=== PATIENT | female | born 1940 | race Caucasian/White ===

== ENCOUNTER → 2016-10-25 | Outpatient (CLI) | payer BC, OTHER ==
[~2016-10-25] MED LIST: AMLO2.5T PO; BIOTCAP2 PO; CHOL2000 PO; CLIN300C2 PO; COEN150C PO; GLUC250C PO; OXYC-57 PO; OXYC1TAB3 PO; PANT1TAB48 PO; PYRI100T4 PO; VALS320T2 PO
== END | disposition home or self-care (01) ==
LOC: C.RDSM 12:07
PROVIDERS: ATTEND Physical Medicine & Rehabilitation Sports Medicine
DX: M19.019 Primary osteoarthritis, unspecified shoulder (principal); Z96.612 Presence of left artificial shoulder joint

== ENCOUNTER → 2016-12-06 | Outpatient (CLI) | payer BC ==
[~2016-12-06] VITALS: Ht 162.6 cm; Wt 86.0 kg
[2016-12-06 15:47] VITALS: BP 149/80; PULSE 73; Ht 162.6 cm; Wt 86.0 kg
== END | disposition home or self-care (01) ==
LOC: C.NEUR 13:13
PROVIDERS: ATTEND Internal Medicine Pulmonary Disease
DX: G47.30 Sleep apnea, unspecified (principal); M35.3 Polymyalgia rheumatica

== ENCOUNTER → 2017-01-17 | Outpatient (CLI) | payer BC | END | disposition home or self-care (01) | LOC: C.RDSM 09:45 | PROVIDERS: ATTEND Physical Medicine & Rehabilitation Sports Medicine | DX: M17.12 Unilateral primary osteoarthritis, left knee (principal); M25.511 Pain in right shoulder; Z96.612 Presence of left artificial shoulder joint ==

== ENCOUNTER → 2017-06-24 | Outpatient (CLI) | payer BC ==
[~2017-06-24] MED LIST changes: -OXYC-57 PO
--- NOTE | 2017-06-24 14:23 | DIAGNOSTIC IMAGING REPORT ---
CHEST 2 VIEWS ROUTINE CLINICAL HISTORY: 76 years-old Female presenting with preoperative assessment. TECHNIQUE: PA and lateral views of the chest were obtained. COMPARISON: 08/19/2016. FINDINGS: Cardiomediastinal silhouette normal. Mild tortuosity of the descending thoracic aorta. Eventration of the right hemidiaphragm. Lungs and pleural spaces clear. Left shoulder arthroplasty. Degenerative changes of the right glenohumeral joint. Degenerative changes of the spine. Mild wedging deformity suggested in the lower thoracic region. Upper abdomen normal. IMPRESSION: 1. No acute cardiopulmonary disease. 2. Mild wedging deformity of a lower thoracic vertebral body. Correlate for point tenderness. This was not clearly present on prior radiograph from July 2016. Electronically signed by: Romaine Armijo M.D. 06/24/2017 2:22 PM Dictated Date/Time: 06/24/2017 2:21 PM
[2017-06-24 14:40] LABS: BASO % 0.6 %; BASO ABS # 0.04 K/uL (0-0.2); COMPLETE YES; EOS % 3.1 %; HEMATOCRIT 39.2 % (37-47); IG% 0.3 %; LYMPH % 25.3 %; LYMPH ABS # 1.74 K/uL (1.2-3.4); MEAN CELL VOLUME 86.2 fL (80-100); MEAN CORPUSCULAR HEMOGLOBIN 26.6 pg (25-34); MEAN CORPUSCULAR HGB CONC 30.9 g/dl (32-36); MEAN PLATELET VOLUME 9.6 fL (7.4-10.4); MONO % 11.2 %; NEUT % 59.5 %; PLATELET COUNT 280 K/uL (130-400); RED BLOOD COUNT 4.55 M/uL (4.2-5.4); WHITE BLOOD COUNT 6.87 K/uL (4.8-10.8)
[2017-06-24 14:48] LABS: PROTHROMBIN TIME (PATIENT) 10.7 SECONDS (9.0-12.0)
[2017-06-24 14:59] LABS: URINE APPEARANCE CLEAR (CLEAR); URINE BILIRUBIN NEG (NEG); URINE COLOR YELLOW; URINE EPITHELIAL CELL AUTO >30 /lpf (0-5); URINE NITRITE NEG (NEG); URINE SPECIFIC GRAVITY 1.015 (1.000-1.030); UROBILINOGEN NEG (NEG)
[2017-06-24 15:00] LABS: MANUAL MICROSCOPIC REQUIRED? NO; REVIEW REQ? NO
[2017-06-24 15:16] LABS: BLOOD UREA NITROGEN 17 mg/dl (7-18); BUN/CREATININE RATIO 20.2 (10-20); CALCIUM 9.6 mg/dl (8.5-10.1); CARBON DIOXIDE 29 mmol/L (21-32); CHLORIDE 106 mmol/L (98-107); CREATININE 0.82 mg/dl (0.60-1.20); GLUCOSE 89 mg/dl (70-99); SODIUM 141 mmol/L (136-145)
== END | disposition home or self-care (01) ==
LOC: C.LAB 13:10
PROVIDERS: ATTEND Physical Medicine & Rehabilitation Sports Medicine
DX: Z01.810 Encounter for preprocedural cardiovascular examination (principal); Z01.811 Encounter for preprocedural respiratory examination; Z01.812 Encounter for preprocedural laboratory examination; I45.10 Unspecified right bundle-branch block

== ENCOUNTER → 2017-07-07 | Outpatient (CLI) | payer BC ==
[~2017-07-07] VITALS: Ht 162.6 cm; Wt 91.4 kg
[2017-07-07 09:49] VITALS: BP 172/75; PULSE 93; Ht 162.6 cm; Wt 91.4 kg
== END | disposition home or self-care (01) ==
LOC: C.NEUR 08:55
PROVIDERS: ATTEND Internal Medicine Pulmonary Disease
DX: G47.33 Obstructive sleep apnea (adult) (pediatric) (principal); R93.8 Abnormal findings on diagnostic imaging of other specified body structures; D64.9 Anemia, unspecified; M19.90 Unspecified osteoarthritis, unspecified site; E78.5 Hyperlipidemia, unspecified; I10 Essential (primary) hypertension; M35.3 Polymyalgia rheumatica

== ENCOUNTER 2017-07-20 08:10 | Inpatient (IN) | payer BC, OTHER ==
[2017-05-30 10:47] VITALS: BMI 32.0
--- NOTE | 2017-06-30 11:48 | HISTORY & PHYSICAL EXAMINATION ---
DATE OF ADMISSION: 07/20/2017 CHIEF COMPLAINT: Right shoulder pain. HISTORY OF PRESENT ILLNESS: This 76-year-old white female presents to the office with complaints of right shoulder pain that had been ongoing for over a year. Pain has become worse since December. Right hand dominant. She has a history of left total shoulder arthroplasty and did very well with that. She elects to proceed with the same on the right. No numbness or tingling. She has lost motion. She has pain with motion and it is affecting her ADLs. She has tried activity modification as well as anti-inflammatories without success. PAST MEDICAL HISTORY: Significant for aortic stenosis, cystocele, elevated lipids, hypertension, left ventricular hypertrophy, mitral regurgitation, obstructive sleep apnea, rectocele, scoliosis, vaginal prolapse, obesity, history of polymyalgia rheumatica, and claustrophobia. PREVIOUS SURGERIES: Left total shoulder replacement in August 2016, herniorrhaphy in April 2016, cataract surgery in January 2016, anterior colporrhaphy in October 2015, cystoureteroscopy in 2015, umbilical hernia repair in October 2014, right knee TKA in November 2012, colonoscopy, nasal septoplasty, sinus surgery, hysterectomy, wisdom tooth extraction, tonsillectomy with adenoidectomy, bilateral carpal tunnel releases, left foot hammertoe operation, right foot bunionectomy x2, right foot hammertoe correction, bladder prolapse tacking, and dental surgery. FAMILY HISTORY: Significant for Alzheimer's disease, hypertension, lung cancer, stroke, heart attack, and COPD. ALLERGIES: KNOWN ALLERGY TO AMOXICILLIN, WHICH CAUSES A RASH; FLUZONE; TOPICAL IODINE; LISINOPRIL; MECLOMEN; NAPROSYN, WHICH CAUSES GI UPSET; PENICILLIN, WHICH CAUSES SWELLING OF HER FACE; AND VALIUM. SOCIAL HISTORY: The patient is retired. No tobacco use and no ETOH use. . CURRENT MEDICATIONS: Biotin daily, Coenzyme Q b.i.d., glucosamine t.i.d., HCTZ/losartan 25 mg/320 mg p.o. daily, Protonix 40 mg p.o. daily, and vitamin D3 daily. REVIEW OF SYSTEMS: Significant for above stated conditions, otherwise unremarkable. PHYSICAL EXAMINATION: GENERAL: Well-developed and well-nourished elderly white female in no acute distress. Sitting on a chair. Alert and oriented. SKIN: Warm and dry with good turgor. No rashes or lesions. No ecchymosis or erythema. HEENT: Normocephalic and atraumatic. Eyes, PERRLA, EOMI. Nares patent bilaterally without turbinate enlargement. Oropharynx is without erythema or exudate. No lesions noted. Uvula midline. Oral mucosa moist. HEART: RRR. 3/6 systolic ejection murmur noted over the left upper chest. No gallops or rubs. LUNGS: Clear to auscultation bilaterally. No crackles, rhonchi or wheezing. Good air movement. ABDOMEN: Obese. Bowel sounds present x4, soft and nontender. No organomegaly. MUSCULOSKELETAL: Right shoulder has no obvious asymmetry or deformity. She has limited range of motion. Abduction to around 80 degrees, forward flexion also to around 80 degrees, and she has crepitation with range of motion. External rotation is significantly limited at about 15 degrees off neutral. Behind the back reach is only to her belt line. Full elbow motion. Full range of motion of the wrist. She has discomfort with palpation over the anterior and posterior glenohumeral joint. NEUROLOGIC: Gross sensation is intact across the arm by soft touch. Peripheral pulses are 2+. Cranial nerves II-XII are intact. DATA: Radiographic imaging previously obtained of the right shoulder shows DJD with periarticular osteophytes and loss of joint space. IMPRESSION: Right shoulder end-stage degenerative joint disease. PLAN: Informed written consent will be obtained on the day of surgery to proceed with right total shoulder arthroplasty. Postoperative prescription for Percocet will be provided at discharge from the hospital. She will participate in physical therapy the next day. Preoperative lab work, EKG, and chest x-ray have been ordered. Medical clearance has been requested from her PCP. [place]
[~2017-07-20] VITALS: Ht 162.6 cm; Wt 88.0 kg
[2017-07-20] VITALS (7 sets, daily range): BP systolic 92–159; BP diastolic 54–81; PULSE 44–77; TEMP 36.4–36.8; O2SAT 92–98; Ht 162.6 cm; Wt 88.0 kg
[~2017-07-20 08:10] MED LIST changes: +LACTATED RINGER'S 1000ML 1,000 ML IV SCH; +LACTATED RINGER'S 1000ML IV SCH; +ROPIVACAINE 0.5% 5 MG/ML 30 ML VIAL ONE; +ROPIVACAINE 5MG/ML 30 ML 150 MG, BUPIVACAINE/EPINEPHR 0.5% MPF 30 ML, KETOROLAC TROMETH... INFIL SCH; +TRANEXAMIC ACID INJ 1,000 MG in SODIUM CHLORIDE 0.9% 100ML 100 ML IV SCH; +VANCOMYCIN INJ 1,250 MG in SODIUM CHLORIDE 0.9% 250ML 250 ML IV SCH
--- NOTE | 2017-07-20 08:27 | History & Physical Bridge Note ---
H&P Re-Evaluation Bridge Note: I have examined the patient, reviewed the History & Physical and in the interval since the performance of the History & Physical I have noted the following changes of clinical significance: consent obtained.No changes noted
[2017-07-20] MEDS ORDERED: MIDAZOLAM HCL 1 MG/ML 2ML VIAL ONE (09:21)
[2017-07-20] MEDS ORDERED: FENTANYL CITRATE INJ 50 MCG/1 ML 2 ML VIAL ONE (09:24)
[2017-07-20] MEDS ORDERED: THROMBIN FOR SOLN 20000 UNIT KIT ONE (10:44)
[2017-07-20] MEDS ORDERED: BACITRACIN 50000 UNIT VIAL ONE (10:44)
[2017-07-20] MEDS ORDERED: EpHEDrine SULFATE INJ 50 MG/ML AMP IV PRN (11:15)
[2017-07-20] MEDS ORDERED: PHENYLEPHRINE 100MCG/ML 5ML SYR IV PRN (11:15)
[2017-07-20] MEDS ORDERED: ONDANSETRON INJ 2 MG/ML 2 ML VIAL IV PRN ×2 (11:15→13:45)
[2017-07-20] MEDS ORDERED: ATROPINE SULFATE 0.1 MG/ML 5ML SYR IV PRN (11:15)
[2017-07-20] MEDS ORDERED: LIDOCAINE HCL 2% 2 ML VIAL (20MG/ML) ONE (11:38)
[2017-07-20] MEDS ORDERED: DEXAMETHASONE SOD INJ 4 MG/ML VIAL ONE (11:38)
[2017-07-20] MEDS ORDERED: ROCURONIUM BROMIDE 10 MG/ML 5 ML VIAL IV ONE ×2 (11:38→12:10)
[2017-07-20] MEDS ORDERED: ONDANSETRON INJ 2 MG/ML 2 ML VIAL ONE (11:38)
[2017-07-20] MEDS ORDERED: GLYCOPYRROLATE INJ 0.2 MG/ML VIAL ONE (11:38)
[2017-07-20] MEDS ORDERED: PROPOFOL IV EMULSION 10 MG/ML 20 ML VIAL IV ONE (11:38)
[2017-07-20] MEDS ORDERED: NEOSTIGMINE METHYLSULFATE 5 MG/5 ML SYR ONE (11:38)
[2017-07-20] MEDS ORDERED: PHENYLEPHRINE 100MCG/ML 5ML SYR ONE (11:52)
[2017-07-20] MEDS ORDERED: ORTHO JOINT ANESTHETIC ONE (12:00)
[2017-07-20] MEDS ORDERED: PHENYLEPHRINE HCL INJ 10 MG/ML VIAL ONE (12:11)
--- NOTE | 2017-07-20 13:26 | [facility] Post Operative Brief Note ---
Immediate Operative Summary Operative Date Jul 20, 2017. Pre-Operative Diagnosis Right shoulder end-stage degenerative joint disease Post-Operative Diagnosis Same as preoperative diagnosis Procedure(s) Performed Right Total Shoulder Arthroplasty--Cemented Surgeon Dr. Avalos Lab Asst Surgeon(s) Lisseth Pena PA-C Estimated Blood Loss 125cc Findings severe djd/cuuff intact but thin/severe bursitis Fluids (cc crystalloids) 1200cc Specimens A. Portion of Right Humeral Head Drains none Anesthesia GET/block Complication(s) None Disposition Recovery Room / PACU
[2017-07-20] MEDS ORDERED: MAGNESIUM HYDROXIDE SUSP 30 ML UDC PO PRN (13:45)
[2017-07-20] MEDS ORDERED: METOCLOPRAMIDE HCL INJ 5 MG/ML 2 ML VIAL IV PRN (13:45)
[2017-07-20] MEDS ORDERED: ALUMINUM/MAGNESIUM SUSP 30 ML UDC PO PRN (13:45)
[2017-07-20] MEDS ORDERED: MoRPHine SULFATE 2 MG/ML CARP IV PRN (13:45)
--- NOTE | 2017-07-20 13:45 | Anesthesiology Progress Note ---
Anesthesia Post Op Note Date & Time Jul 20, 2017 at 13:45 Vital Signs Pain Intensity: 8 Vital Signs Past 12 Hours Date Time Temp Pulse Resp B/P (MAP) Pulse Ox O2 Delivery O2 Flow Rate FiO2 07/20/17 10:59 59 20 129/68 (88) 97 Oxymask 5 98 07/20/17 10:48 64 20 130/71 (90) 97 Oxymask 5 07/20/17 08:58 36.7 77 18 159/74 Room Air Notes Mental Status: alert / awake / arousable, participated in evaluation Pt Amnestic to Procedure: Yes Nausea / Vomiting: adequately controlled Pain: adequately controlled Airway Patency, RR, SpO2: stable & adequate BP & HR: stable & adequate Hydration State: stable & adequate Anesthetic Complications: no major complications apparent
[2017-07-20] MEDS: HYDROmorphone INJ 2 MG/ML SYR/VIAL IV PRN ×4 (14:09→14:28)
--- NOTE | 2017-07-20 14:28 | DIAGNOSTIC IMAGING REPORT ---
R SHOULDER MIN 2 VIEWS ROUTINE CLINICAL HISTORY: 76 years-old Female presenting with Post shoulder surgery. TECHNIQUE: Frontal and transscapular Y views of the right shoulder were obtained. COMPARISON: 01/17/2017. FINDINGS: Postsurgical changes of right shoulder arthroplasty with anchor noted in the osseous glenoid. No hardware complication. Overlying skin robert noted. Soft tissue emphysema. Degenerative change of the acromioclavicular joint. Scattered basilar predominant opacities in the right lung. IMPRESSION: Expected postoperative appearance status post right shoulder arthroplasty. No hardware convocation. Minimal right basilar atelectasis. Electronically signed by: Romaine Armijo M.D. 07/20/2017 2:27 PM Dictated Date/Time: 07/20/2017 2:24 PM
--- NOTE | 2017-07-20 14:35 | OPERATIVE REPORT ---
DATE OF OPERATION: 07/20/2017 SURGEON: Dr. Avalos. [place]ARLAND MACHINE OPERATOR: Shankar Pena PA-C. No resident or fellow available. PREOPERATIVE DIAGNOSES: Osteoarthritis with intact but thin cuff, right shoulder; chronic bursitis, chronic biceps tendinopathy. POSTOPERATIVE DIAGNOSES: Same. OPERATION PERFORMED: Right total shoulder replacement. PERIOPERATIVE SITUATION: Medically cleared female who had a similar procedure done on the opposite side and has done very well, wants this one done as well. X-rays reveal end-stage disease, arm has marked pain. She has intact cuff by exam. SUMMARY OF IMPLANTS: Size 44 glenoid, cemented size 12 stem, noncemented size 44 x 21 humeral head. PROCEDURE IN DETAIL: The patient appropriately identified, site verified, consent verified, vancomycin confirmed as being given. The right upper extremity was prepped and draped in the usual routine fashion with the patient in the slight beach chair position. A deltopectoral approach was made. Care was taken to protect the cephalic vein. The clavipectoral fascia was then incised. Retractors placed, subscap was then detached off of the tuberosity and tagged. The biceps tendon was debrided and released, was markedly tendinopathic. The superior cuff was thin but intact. Osteophytes were resected with care taken to protect the axillary nerve. The humeral head was then resected and then revised to improve exposure with care. Capsule was then released, the labrum excised. The glenoid was then exposed. The central point was then identified and then a slot made with a power bur and it was decided to use a 44 glenoid as that sat better. Area was then irrigated with Pulsavac and the glenoid then cemented into position. After 14 minutes, the glenoid was well fixed, it moved well with the scapula. The area was then irrigated. The proximal humerus was then delivered into the wound, it was had reamed and hand broached and a size 12 fit well. Sutures were placed through the tuberosity of the lesser side for subscap repair. The final broach was then seated and then trial reduction carried out. The 21 head gave better stability and decreased the posterior translation by 25% and limited it to about 50%. The wound was then copiously irrigated. Permanent stem then seated, permanent head seated, the shoulder reduced and then the subscap repaired with the transosseous/implant cerclaged sutures and then the rotator interval was closed superiorly with 0 Vicryl. Good repair was obtained. The arm could be abducted at 34, flexed to 30 and rotated from belly to 10 degrees without undue tension on the subscap repair. The wound was then irrigated one final time and closed with #2 plain and stainless steel clips. Appropriate dressing applied and a sling and a belly band applied. The patient was then transferred to recovery room in satisfactory condition, having tolerated the procedure well. ESTIMATED BLOOD LOSS: About 125 mL. Crystalloid roughly 1200 mL. SUMMARY OF IMPLANTS: 44 glenoid poly, cemented, size 12 stem noncemented, 44 x 21 Advantage humeral head. All of these were Advantage implants, Global shoulder. I attest to the content of the Intraoperative Record and any orders documented therein. Any exceptions are noted below. MTDD
--- NOTE | 2017-07-20 14:37 | PROGRESS NOTE ---
DATE: 07/20/2017 Postop check. The patient is comfortable. Block is in place. Neurovascular check is limited by that, but the hand is pink and viable and warm. Denies chest pain, shortness of breath, fever, chills, nausea, vomiting or headache. Wound dressing is clean, dry and intact. X-RAYS: Postop reveal excellent implant positioning. ASSESSMENT: Status post right total shoulder replacement. Continue with care pathway. Discharge potentially early tomorrow for outpatient PT. ADDENDUM: Range of motion 30 degrees abduction, 30 degrees forward flexion and external rotation from belly to 10 degrees with the arm at the side.
[2017-07-20] MEDS ORDERED: MoRPHine SULFATE 4 MG/ML 1 ML CARP\\VIAL IV PRN (16:15)
[2017-07-20] MEDS ORDERED: KETOROLAC TROMETHAMINE 15 MG/ML VIAL IV. PRN (16:30)
[2017-07-20] MEDS ORDERED: D5W AND 1/2NSS + 20MEQ KCL 1,000 ML IV SCH (16:30)
[2017-07-20] MEDS: ACETAMINOPHEN IV 1,000 MG in EMPTY BAG 0 ML IV SCH (17:02)
[2017-07-20] MEDS: FERROUS GLUCONATE 324 MG TAB PO SCH (18:05)
[2017-07-20] MEDS: OXYCODONE HCL IR 5 MG TAB (IMMEDIATE RELEASE) PO PRN (18:06)
[2017-07-20] MEDS ORDERED: VANCOMYCIN INJ 1,250 MG in SODIUM CHLORIDE 0.9% 250ML 250 ML IV SCH (20:45)
[2017-07-20] MEDS: DOCUSATE SODIUM 100 MG CAP PO SCH (20:53)
[2017-07-20] MEDS ORDERED: NURSING VERBAL MED ORDER ONE (23:15)
[2017-07-21] MEDS: ACETAMINOPHEN IV 1,000 MG in EMPTY BAG 0 ML IV SCH ×2 (00:50→07:40)
[2017-07-21] MEDS: OXYCODONE HCL IR 5 MG TAB (IMMEDIATE RELEASE) PO PRN ×2 (00:52→08:50)
[2017-07-21 03:55] VITALS: BP 101/61; PULSE 59; TEMP 36.4; O2SAT 95
[2017-07-21 06:59] VITALS: BP 96/60; PULSE 62; TEMP 36.5; O2SAT 92
--- NOTE | 2017-07-21 07:28 | PROGRESS NOTE ---
DATE: 07/21/2017 Postop day 1 status post right total shoulder replacement. The patient is resting comfortably using her CPAP machine. She denies chest pain, shortness of breath, fever, chills, nausea, vomiting or headache. Vital signs are stable. She is afebrile. Neurovascular check of the hand is intact. Axillary function is intact. Motor function noted with elbow, shoulder abduction. Calves nontender. ASSESSMENT: Doing well status post right total shoulder replacement. Will discharge today for outpatient PT visit at 2:30 p.m. at [facility]. Dressing can be changed there. It is clean and dry right now.
--- NOTE | 2017-07-21 07:32 | DISCHARGE SUMMARY ---
CHIEF COMPLAINT: Right shoulder pain. HISTORY OF PRESENT ILLNESS: 76-year-old female admitted for elective right total shoulder replacement. Hospital course has been uneventful. PAST MEDICAL HISTORY: Remarkable for aortic stenosis, cystocele, hypercholesterolemia, hypertension, left ventricular hypertrophy, mitral regurgitation, sleep apnea, rectocele, scoliosis, vaginal prolapse, obesity, polymyalgia rheumatica, and claustrophobia. PAST SURGICAL HISTORY: Left total shoulder replacement, herniorrhaphy, cataract surgery, vaginal surgery, umbilical hernia repair, total knee replacement, colonoscopy, septoplasty, sinus surgery, hysterectomy, wisdom teeth extraction, tonsillectomy, adenoidectomy, carpal tunnel releases, hammertoe surgery, bunionectomies. FAMILY HISTORY: Remarkable for Alzheimer's disease, hypertension, lung cancer, stroke, heart attack and COPD. ALLERGIES: AMOXICILLIN WHICH CAUSES A RASH, FLUZONE, TOPICAL IODINE, LISINOPRIL, MECLOMEN, NAPROSYN WHICH CAUSED GI UPSET, PENICILLIN WHICH CAUSES SWELLING OF HER FACE, VALIUM WHICH CAUSES UNKNOWN REACTION. SOCIAL HISTORY: Reveals that she is retired. No tobacco or alcohol use. PREOPERATIVE PREADMISSION MEDICATIONS: Biotin, Coenzyme Q10, glucosamine, hydrochlorothiazide, Losartan, Protonix and vitamin D. She will continue all those and add p.r.n. pain medication. Please see prescription. REVIEW OF SYSTEMS: Noncontributory. ASSESSMENT: Doing well status post total shoulder replacement. Will discharge today. Outpatient PT. Follow up in 2 weeks for staple removal.
[2017-07-21] MEDS: DOCUSATE SODIUM 100 MG CAP PO SCH (08:48)
[2017-07-21] MEDS: FERROUS GLUCONATE 324 MG TAB PO SCH (08:49)
--- NOTE | 2017-07-21 08:58 | Discharge Instructions ---
Discharge Instructions Date of Service Jul 21, 2017. Admission Reason for Admission: Right Shoulder Degenerative Joint Disease Discharge Discharge Diagnosis / Problem: Right shoulder s/p total shoulder arthroplasty Discharge Goals Goal(s): Decrease discomfort, Improve function, Increase independence Activity Recommendations Activity Limitations: as noted below Lifting Limitations: until after follow-up appointment Exercise/Sports Limitations: until after follow-up appointment Shower/Bathe: keep incision dry Driving or Machine Use: No driving until cleared by Dr. Avalos. . Instructions / Follow-Up Instructions / Follow-Up The following are instructions to follow after "Shoulder Surgery" ACTIVITY RECOMMENDATIONS: * Minimize activity after surgery. * No excessive walking, jogging, sports or laboring. * Return to activity is individualized depending on the patient and type of surgery. * Driving is not permitted until at least your first post operative visit. Please ask your doctor when it is safe to resume driving. * Expect increased discomfort with increased activity. Continue to ice the shoulder as needed. MEDICATIONS: * You will have a prescription for pain medication after surgery. * Use the pain medication for severe pain and an anti-inflammatory for less severe pain. Once the pain medication has run out, try to use the anti-inflammatory medication. If this is not effective, contact the office for assistance. * The pain medication may cause nausea, constipation and drowsiness. You should see how they affect you before driving or similar activity. * An anti-inflammatory medication may cause stomach upset and bleeding. If this occurs let your doctor know immediately . * Take a stool softener like Colace or a laxative like Senokot to prevent constipation. DIET: * Resume previous diet. SPECIAL CARE: ICE: You have the option of gel packs or ice bags. * Do not apply ice directly to the skin. Use a thin dressing or jeremi shirt between the skin and ice bag. Apply ice for 20-30 minutes and repeat every 2-4 hours. This is especially important for the first 7-10 days after surgery. Once the pain improves, use ice as needed. ELEVATION: * You may be more comfortable sleeping in an upright position. Use the sling to elevate your arm. DRESSING: * Your dressing will be changed at your first therapy appointment approximately 4-5 days after surgery. Band-aids, tape strips or gauze may be applied. You may then change your dressing daily. * Always wash your hands prior to touching the incision area. * Once the stitches are removed, you may leave the wound open to air or cover with gauze. * Expect some bloody drainage for the first few days after surgery. * Leave the tape strips, if present, in place for 5-7 days. * Band-aids and gauze may be changed daily. * There may be a gauze pad in your armpit area. This can be changed daily or replaced by a dry washcloth. SLING/BRACE: * You will need to use a sling or brace after surgery. The length of time the sling is used is dependent upon the type of surgery performed. BATHING: * You may shower or sponge-bathe immediately after surgery. You may shower right over this dressing, but be reasonably careful not to get the gauze or incision wet. * Wash with regular soap and water. * Do not bathe (submerge the incision), soak, swim or use a hot tub until the incision is completely healed over with normal skin and the doctor has given the OK to proceed. * There is no need to apply any ointments, powders or salves to your incision. * Do not apply alcohol or hydrogen peroxide directly to the incision. * Diluted peroxide (50:50 mixture with sterile saline) may be used to clean dried blood from around the incision area. THERAPY: * You will begin therapy the day after surgery. * Organized therapy with the therapist is important for the first 2-4 months after surgery depending on the type of procedure. During that time you will attend therapy 1-3 times per week. * You will also need to do daily exercises for range of motion and strength as instructed. * Please check with your doctor regarding appropriate motion restrictions. FOLLOW UP VISIT: * If not already scheduled, please call the office at to schedule a follow-up appointment for 10 days after surgery and monthly thereafter. Current Hospital Diet Patient's current hospital diet: Regular Diet Discharge Diet Recommended Diet: Regular Diet Procedures Procedures Performed: Right Total Shoulder Arthroplasty--Cemented Pending Studies Studies pending at discharge: no Medical Emergencies . Who to Call and When: Medical Emergencies: If at any time you feel your situation is an emergency, please call 911 immediately. . Non-Emergent Contact Non-Emergency issues call your: Primary Care Provider, Surgeon Call Non-Emergent contact if: temperature is above 101, wound has increased drainage, wound has increased redness, wound has increased pain, you have any medication questions . "Provider Documentation" section prepared by Shankar Pena PA-C. . VTE Core Measure Inpt VTE Proph given/why not?: Bela Stocklilliana, SCD's [place] Drug Monitoring Program Search Results: no issues identified
[2017-07-21] MEDS ORDERED: VALSARTAN 80 MG TAB PO SCH (09:00)
[2017-07-21] MEDS ORDERED: PANTOprazole SOD 40 MG TAB PO SCH (09:00)
[2017-07-21] MEDS ORDERED: HYDROCHLOROTHIAZIDE 25 MG TAB PO SCH (09:00)
[2017-07-21] MEDS ORDERED: MULTIVITAMIN TAB PO SCH (09:00)
[2017-07-21] MEDS ORDERED: VALSARTAN/HCTZ 160/12.5 MG TAB PO SCH (09:00)
--- NOTE | 2017-07-21 09:02 | Orthopedic Progress Note ---
Orthopedic Progress Note Date of Service Jul 21, 2017. Subjective Post OP Day: 1 Reports: feeling well, pain controlled w PO medications, Denies: complaints, chest pain, SOB, nausea / vomiting, light headedness, calf pain Additional Notes: states she thinks it is more painful than her last shoulder replacement Objective calves soft nontender, N/V intact, capillary refill less than 2 sec., dressing C /D/I, A&O x3, toes mobile, CMS intact Sling in place, sitting chair eating breakfast. Date Time Temp Pulse Resp B/P (MAP) Pulse Ox O2 Delivery O2 Flow Rate FiO2 07/21/17 06:59 36.5 62 16 96/60 (72) 92 Room Air 07/21/17 03:55 36.4 59 17 101/61 (74) 95 CPAP 07/21/17 00:50 CPAP 07/20/17 22:50 36.7 56 17 92/54 (67) 92 CPAP 07/20/17 18:41 36.6 51 16 99/63 (75) 97 Nasal Cannula 5.0 07/20/17 17:30 36.8 47 16 98/62 (74) 96 Nasal Cannula 4.0 07/20/17 16:30 36.6 44 16 128/66 (86) 98 Nasal Cannula 4.0 07/20/17 16:00 36.7 48 16 134/81 (98) 98 Nasal Cannula 4.0 07/20/17 15:30 36.4 49 16 125/73 (90) 95 Nasal Cannula 4.0 07/20/17 15:30 95 Nasal Cannula 4.0 07/20/17 15:30 95 Nasal Cannula 4.0 07/20/17 15:24 36.1 07/20/17 15:21 104/50 07/20/17 15:19 56 20 07/20/17 15:19 56 20 94 07/20/17 15:16 95/47 07/20/17 15:14 51 17 07/20/17 15:14 54 17 94 07/20/17 15:11 97/52 07/20/17 15:09 47 14 07/20/17 15:09 47 14 94 07/20/17 15:08 58 22 07/20/17 15:08 60 22 92 07/20/17 15:06 101/49 07/20/17 15:03 50 16 9/27/17 15:03 52 16 93 07/20/17 15:01 101/53 07/20/17 14:58 55 14 92 07/20/17 14:58 50 14 07/20/17 14:56 99/52 07/20/17 14:53 43 28 07/20/17 14:53 63 28 93 07/20/17 14:51 96/49 07/20/17 14:48 45 14 93 07/20/17 14:48 44 14 07/20/17 14:46 92/47 07/20/17 14:45 36.2 07/20/17 14:43 49 17 92 07/20/17 14:43 51 17 07/20/17 14:42 55 16 93 07/20/17 14:42 55 16 07/20/17 14:41 98/51 07/20/17 14:37 49 15 93 07/20/17 14:37 50 15 07/20/17 14:36 99/49 07/20/17 14:33 47 15 94 07/20/17 14:33 48 15 07/20/17 14:31 89/51 07/20/17 14:28 46 14 07/20/17 14:28 46 14 95 07/20/17 14:27 52 20 07/20/17 14:27 52 20 100/55 93 07/20/17 14:22 50 18 94 07/20/17 14:22 49 18 07/20/17 14:21 106/57 07/20/17 14:17 48 15 07/20/17 14:17 48 15 93 07/20/17 14:16 112/59 07/20/17 14:14 50 18 07/20/17 14:14 50 18 93 07/20/17 14:11 115/55 07/20/17 14:09 56 20 07/20/17 14:09 55 20 95 07/20/17 14:06 117/60 07/20/17 14:04 56 19 98 07/20/17 14:04 56 19 07/20/17 14:03 58 25 07/20/17 14:03 58 25 97 07/20/17 14:01 120/70 07/20/17 13:58 57 16 98 07/20/17 13:58 56 16 07/20/17 13:57 101/59 07/20/17 13:53 56 21 07/20/17 13:53 56 21 98 07/20/17 13:51 112/57 07/20/17 13:48 57 25 07/20/17 13:48 57 25 97 07/20/17 13:46 102/51 07/20/17 13:43 58 22 95 07/20/17 13:43 58 22 07/20/17 13:41 103/55 07/20/17 13:39 106/57 07/20/17 13:38 36.2 71 16 106/57 94 Oxymask 10 07/20/17 13:38 20 07/20/17 13:38 63 20 07/20/17 10:59 59 20 129/68 (88) 97 Oxymask 5 98 07/20/17 10:48 64 20 130/71 (90) 97 Oxymask 5 Assessment & Plan Assessment: Right shoulder post op day 1 total shoulder arthroplasty Plan: D/C to home. PT scheduled at the office for 230 today dressing change to be done at the office continue sling/ice/elevation Discharge Planning Discharge Planning: home Pain Management: Percocet DVT Prophylaxis: TEDs, SCDs Therapy: Physical Therapy
[2017-07-21 09:16] VITALS: BP 115/69
[2017-07-21 09:36] VITALS: BP 115/69; PULSE 62; TEMP 36.5; O2SAT 92
[2017-07-21] MEDS ORDERED: ACETAMINOPHEN 325 MG TAB PO PRN (16:00)
--- NOTE | 2017-07-22 16:25 | [facility] Operative Report ---
Operative Report Operative Date Jul 22, 2017. Pre-Operative Diagnosis Right shoulder end-stage degenerative joint disease Post-Operative Diagnosis Right shoulder Same as preoperative diagnosis Procedure(s) Performed Right Total Shoulder Arthroplasty--Cemented Surgeon Dr. Avalos Hanger Surgeon(s) Lisseth Pena PA-C Estimated Blood Loss 125cc Findings Right shoulder DJD Fluids 1200cc Specimens A. Portion of Right Humeral Head Drains none Anesthesia GET/block Complication(s) None Disposition Recovery Room / PACU Indications This 76-year-old white female presented the office complaints of right shoulder pain that was not responsive to conservative care measures. Pain was persistent. She was having difficulty with motion. She elected to proceed with surgical intervention in hopes of alleviating her pain. Preoperative imaging was obtained. Description of Procedure Patient was administered a regional block and then taken to the operating room where she was given general anesthesia. She was prepped and draped in usual sterile fashion. Please see Dr. Avalos's operative report for specifics of the procedure. I was present for the entire case from initial patient positioning through final wound closure. Assistance was provided in tissue traction, hemostasis, trial implant placement, final implant placement, and final wound closure. Patient was taken to the recovery room in satisfactory condition. I attest to the content of the Intraoperative Record and any orders documented therein. Any exceptions are noted below.
== END 2017-07-21 11:13 | disposition home or self-care (01) | DRG 483 ==
LOC: C.ACU 08:10 → C.3E 08:40 → ENRESERV 14:08
PROVIDERS: ADMIT Physical Medicine & Rehabilitation Sports Medicine; ATTEND Physical Medicine & Rehabilitation Sports Medicine
PROC: 0RRJ0JZ Replacement of Right Shoulder Joint with Synthetic Substitute, Open Approach (ICD-10-PCS; principal; 2017-07-20 10:30)
DX: M19.011 Primary osteoarthritis, right shoulder (principal); G47.33 Obstructive sleep apnea (adult) (pediatric); Z96.612 Presence of left artificial shoulder joint; E66.9 Obesity, unspecified; I10 Essential (primary) hypertension; Z79.899 Other long term (current) drug therapy; Z68.33 Body mass index [BMI] 33.0-33.9, adult

== ENCOUNTER → 2017-09-12 | Outpatient (CLI) | payer BC ==
[~2017-09-12] MED LIST changes: -AMLO2.5T PO; -GLUC250C PO; -LACTATED RINGER'S 1000ML 1,000 ML IV SCH; -LACTATED RINGER'S 1000ML IV SCH; -ROPIVACAINE 0.5% 5 MG/ML 30 ML VIAL ONE; -ROPIVACAINE 5MG/ML 30 ML 150 MG, BUPIVACAINE/EPINEPHR 0.5% MPF 30 ML, KETOROLAC TROMETH... INFIL SCH; -TRANEXAMIC ACID INJ 1,000 MG in SODIUM CHLORIDE 0.9% 100ML 100 ML IV SCH; -VANCOMYCIN INJ 1,250 MG in SODIUM CHLORIDE 0.9% 250ML 250 ML IV SCH
== END | disposition home or self-care (01) ==
LOC: C.RDSM 14:15
PROVIDERS: ATTEND Physical Medicine & Rehabilitation Sports Medicine
DX: M19.011 Primary osteoarthritis, right shoulder (principal)

== ENCOUNTER → 2017-12-12 | Outpatient (CLI) | payer BC ==
[~2017-12-12] MED LIST changes: +PANT1TAB3 PO; -PANT1TAB48 PO
== END | disposition home or self-care (01) ==
LOC: C.RDSM 12:53
PROVIDERS: ATTEND Physical Medicine & Rehabilitation Sports Medicine
DX: M19.011 Primary osteoarthritis, right shoulder (principal)

== ENCOUNTER 2020-01-31 11:13 | Inpatient (IN) ==
[2020-01-31] MEDS ORDERED: ASPIRIN CHEW 324 MG ONE (11:28)
[2020-01-31] MEDS ORDERED: NITROGLYCERIN SL 0.4 MG/TAB TAB ONE (11:28)
[2020-01-31] MEDS ORDERED: ONDANSETRON INJ 2 MG/ML 2 ML VIAL IV STA (11:30)
[2020-01-31] MEDS ORDERED: ASPIRIN CHEW 324 MG PO STA (11:30)
[2020-01-31] MEDS ORDERED: SODIUM CHLORIDE 0.9% 500 ML IV SCH (11:30)
--- NOTE | 2020-01-31 11:34 | Emergency Department Note ---
Impression & Plan ST elevation (STEMI) myocardial infarction, Chest pain ED Provider Note NAME: RONEN MORSE AGE: 79 SEX: F : 1940 ARRIVES VIA: Walk-In INFORMANT: Patient, ED PROVIDER(S): Bayron Sanchez MD Chief Complaint: Chest pain HPI: Patient does describe complaints of chest pain. It did begin last evening after dinner. The patient describes it as "being struck by a sledgehammer." The patient denies any nausea but was concerned about the possibility of gas pain. The patient states that the pain does not radiate. The patient denies exertional symptoms. No prior history of DVT or PE. The patient does have some residual leg swelling. The patient does complain of chronic cough. ROS: See HPI for pertinent positives and negatives. A total of 10 systems were reviewed and otherwise negative. Past medical history: See below Surgical history: See below Social history: See below Physical Exam: GENERAL: Well appearing, well nourished, NAD, non-toxic. Wearing a mask. EYE EXAM: Normal conjunctiva. PERRL, no anisocoria and EOM's grossly intact w/o pain. NECK: Supple, no nuchal rigidity, no adenopathy, non-tender. No signs of meningismus. LUNGS: Clear to auscultation. Normal chest wall mechanics. HEART: NSR, no MRG. ABDOMEN: Abdomen soft, non-tender, normo-active bowel sounds, no masses, no rebo und or guarding. BACK: No CVA TTP. SKIN: No rashes and no bruising. UPPER EXTREMITIES: Upper extremities are grossly normal. LOWER EXTREMITIES: Grossly normal, 1+ bilateral lower extremity edema. NEURO EXAM: A&O x3, cranial nerves II-XII grossly intact, normal speech, moves all 4 extremities on command w/o issue. Differential diagnoses: Cardiac ischemia, aortic dissection, pulmonary embolism, pneumothorax, pneumonia, pericarditis, myocarditis, esophageal rupture, GERD, cholecystitis, pancreatitis, musculoskeletal, as well as other pathologies. Course: Patient was seen and evaluated the bedside. A full history and physical exam was performed. I did review the EKG and immediately contacted cardiology and subsequently made the patient a heart alert. EKG: Indication: Chest pain Sinus, rate of 73, normal intervals, normal axis, concern for ST elevations anteriorly and inferiorly. Slight depression in the high lateral leads. There is acute concern for acute ST elevation CO. Imaging Studies: Radiology results as stated below per my review in the radiologist's interpretation: XR chest 1V portable HISTORY: 79 years-old Female Chest Pain acute atypical chest pain COMPARISON: Chest radiograph 01/30/2020 TECHNIQUE: AP view of the chest FINDINGS: Cardiac silhouette is enlarged. Mild interstitial coarsening with pulmonary vascular congestion. Calcified plaque of the thoracic aortic arch. No pneumothorax or large pleural effusion. Eventration of the right hemidiaphragm. Hiatal hernia. No lobar airspace consolidation. Bilateral shoulder arthroplasties. Degenerative changes of the spine. IMPRESSION: 1. Cardiomegaly with pulmonary vascular congestion and interstitial coarsening suggestive of mild pulmonary edema. 2. Hiatal hernia. ACT 112: Negative or not required by law. The above report was generated using voice recognition software. It may contain grammatical, syntax or spelling errors. Electronically signed by: Harish Kelly M.D. 01/31/2020 11:52 AM Dictated: 01/31/20 1149 Transcribed: 01/31/20 1149 Cardiac monitoring: An order was placed for continuous cardiac monitoring. The monitor shows a rate of 76 with sinus rhythm. MDM: Patient was seen and evaluated at the bedside for chest pain. The patient did have blood work completed along with an EKG. EKG concerning for STEMI. Heart alert was made. The patient was given aspirin nitro and fluids. I did speak with the cards nurse as the interventionalist was currently scrubbed in. Dr. Joyner from [facility] cardiology did come to the bedside of the patient. Patient does have a normal white count. The patient does have some mild anemia. Troponin [id number] was elevated. The patient did receive the aspirin and nitro. The patient was seen and evaluated by Adeel Dailey MD interventional cardiology and the patient was subsequently taken to the Clinical Product Specialist for cardiac catheterization. [facility] further evaluate treat the patient post cath procedure. Critical Care: I have personally spent 30 minutes of critical care time in direct management of this patient. This includes bedside care, interpretation of diagnostic studies, and testing, discussion with consultants, patient, and family members, and other require inpatient management activities. This 30 minutes is in excess of all separately billable procedures. 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 Beliefs That Will Affect Care: None Current Living Situation: Spouse Other Information That Helps Us Care for You: No Feels Safe at Home: Yes Safety Concerns: Feels Safe At This Time Smoking Status: Never smoker Do You Dip or Chew Tobacco: No ; Second Hand Exposure: No ; Tobacco Cessation Education Requested by Patient: No Hx Alcohol Use: No Hx Substance Use: Yes substance use type: opiates and prescription drug Last Used Substance: Unknown Allergies Allergies Allergy/AdvReac Type Severity Reaction Status Date / Time Penicillins Allergy Intermediate pruritis, Verified 01/31/20 12:09 swelling of extremeties amoxicillin Allergy Mild RASH Verified 01/31/20 12:09 Iodinated Contrast Media Allergy Unknown pt with Verified 01/31/20 12:09 topical iodine allergy iodine Allergy Unknown pruritis, Verified 01/31/20 12:09 contact dermatitis pork derived (porcine) Allergy Unknown unknown Verified 01/31/20 12:09 thimerosal Allergy Unknown unknown Verified 01/31/20 12:09 diazepam AdvReac Unknown HYPERACTIVE Verified 01/31/20 12:09 lisinopril AdvReac Unknown nausea Verified 01/31/20 12:09 meclofenamic acid AdvReac Unknown diarrhea Verified 01/31/20 12:09 naproxen AdvReac Unknown NAUSEA Verified 01/31/20 12:09 mcclomen Allergy Mild GI SYMPTOMS Uncoded 01/31/20 12:09 Flu Virus Vaccine Allergy Unknown unknown Uncoded 01/31/20 12:09 Home Meds Home Medications Medication Instructions Recorded Confirmed metformin 500 mg PO BID 01/31/20 01/31/20 pantoprazole 20 mg PO Q2D 01/31/20 01/31/20 ropinirole 0.25 mg PO DAILY 01/31/20 01/31/20 valsartan-hydrochlorothiazide 1 tab PO DAILY 01/31/20 01/31/20 Results & Data (ED) Vital Signs Vital Signs - 24 hr 01/31/20 11:14 01/31/20 11:28 01/31/20 11:30 Temperature 36.7 C Temperature Source Oral Pulse Rate 76 77 Pulse Rate from SpO2 Sensor 77 Respiratory Rate 22 32 H Respiratory Effort / Characteristics Non-Labored Respiratory Depth Normal Blood Pressure 110/83 206/87 H Blood Pressure Mean 92 105 Pulse Oximetry 93 99 Oxygen Delivery Method Room Air Room Air Sepsis Recent Fever Within 48 Hours No Sepsis Action Taken by Nursing No Action Required 01/31/20 11:37 01/31/20 11:45 Temperature Temperature Source Pulse Rate 84 87 Pulse Rate from SpO2 Sensor 84 87 Respiratory Rate 21 18 Respiratory Effort / Characteristics Respiratory Depth Blood Pressure 167/86 H 158/75 H Blood Pressure Mean 94 95 Pulse Oximetry 97 96 Oxygen Delivery Method Sepsis Recent Fever Within 48 Hours Sepsis Action Taken by Long Term Medications Current Medication List: was personally reviewed by me Laboratory Data Attestation: I reviewed the patient's lab results. Result diagrams: 01/31/20 11:36 01/31/20 11:36 Lab Results 01/31/20 01/31/20 01/31/20 Range/Units 11:36 11:36 11:36 WBC 6.65 (4.8-10.8) K/uL RBC 4.37 (4.2-5.4) M/uL Hgb 9.9 L (12.0-16.0) g/dL POC Hgb (12.0-16.0) g/dl Hct 32.9 L (37-47) % POC Hct (37-47) % MCV 75.3 L (80-100) fL MCH 22.7 L (25-34) pg MCHC 30.1 L (32-36) g/dL RDW Std Deviation 48.9 H (36.4-46.3) fL RDW Coeff of Angelina 17.8 H (11.5-14.5) % Plt Count 298 (130-400) K/uL MPV 9.4 (7.4-10.4) fL Immature Gran % (Auto) 0.3 % Neut % (Auto) 71.2 % Lymph % (Auto) 19.5 % Wake % (Auto) 6.9 % Eos % (Auto) 1.8 % Baso % (Auto) 0.3 % Immature Gran # (Auto) 0.02 (0.00-0.02) K/uL Neut # (Auto) 4.73 (1.4-6.5) K/uL Lymph # (Auto) 1.30 (1.2-3.4) K/uL Wake # (Auto) 0.46 (0.11-0.59) K/uL Eos # (Auto) 0.12 (0-0.5) K/uL Baso # (Auto) 0.02 (0-0.2) K/uL PT 11.2 (9.0-12.0) Seconds INR 1.1 (0.9-1.1) APTT 28.3 (21.0-31.0) Seconds PTT Ratio 1.0 POC Sodium (135-144) mmol/L Sodium 135 L (136-145) mmol/L POC Potassium (3.3-5.0) mmol/L Potassium 3.6 (3.5-5.1) mmol/L POC Chloride (101-112) mmol/L Chloride 103 (98-107) mmol/L Carbon Dioxide 24 (21-32) mmol/L POC Total CO2 (24-31) mEq/l Anion Gap 9.0 (3-11) POC Anion Gap (16-25) mmol/L POC BUN (7-18) mg/dl BUN 20 H (7-18) mg/dl Creatinine 0.97 (0.6-1.2) mg/dl POC Creatinine (0.6-1.3) mg/dl Est Cr Clr Drug Dosing 50.3 ml/min Est GFR ( Amer) 63.5 Est GFR (Non-Af Amer) 54.8 BUN/Creatinine Ratio 20.8 H (10-20) Glucose 173 H (70-99) mg/dl POC Glucose (other) (70-99) mg/dl Calcium 9.3 (8.5-10.1) mg/dl POC Ioniz Calcium Daily (1.12-1.32) mmol/l Total Bilirubin 0.7 (0.2-1) mg/dl AST 69 H (15-37) U/L ALT 55 (12-78) U/L Alkaline Phosphatase 72 (45-117) U/L POC Troponin I (0-0.045) ng/ml Troponin I 1.680 H* (0-0.045) ng/ml Total Protein 7.7 (6.4-8.2) gm/dl Albumin 3.7 (3.4-5.0) gm/dl Globulin 4.0 (2.5-4.0) gm/dl Albumin/Globulin Ratio 0.9 (0.9-2) Lipase 122 (73-393) U/L 01/31/20 01/31/20 Range/Units 11:42 11:42 WBC (4.8-10.8) K/uL RBC (4.2-5.4) M/uL Hgb (12.0-16.0) g/dL POC Hgb 11.2 L (12.0-16.0) g/dl Hct (37-47) % POC Hct 33 L (37-47) % MCV (80-100) fL MCH (25-34) pg MCHC (32-36) g/dL RDW Std Deviation (36.4-46.3) fL RDW Coeff of Angelina (11.5-14.5) % Plt Count (130-400) K/uL MPV (7.4-10.4) fL Immature Gran % (Auto) % Neut % (Auto) % Lymph % (Auto) % Wake % (Auto) % Eos % (Auto) % Baso % (Auto) % Immature Gran # (Auto) (0.00-0.02) K/uL Neut # (Auto) (1.4-6.5) K/uL Lymph # (Auto) (1.2-3.4) K/uL Wake # (Auto) (0.11-0.59) K/uL Eos # (Auto) (0-0.5) K/uL Baso # (Auto) (0-0.2) K/uL PT (9.0-12.0) Seconds INR (0.9-1.1) APTT (21.0-31.0) Seconds PTT Ratio POC Sodium 136 (135-144) mmol/L Sodium (136-145) mmol/L POC Potassium 3.6 (3.3-5.0) mmol/L Potassium (3.5-5.1) mmol/L POC Chloride 101 (101-112) mmol/L Chloride (98-107) mmol/L Carbon Dioxide (21-32) mmol/L POC Total CO2 23 L (24-31) mEq/l Anion Gap (3-11) POC Anion Gap 17.0 (16-25) mmol/L POC BUN 20 H (7-18) mg/dl BUN (7-18) mg/dl Creatinine (0.6-1.2) mg/dl POC Creatinine 0.9 (0.6-1.3) mg/dl Est Cr Clr Drug Dosing ml/min Est GFR ( Amer) Est GFR (Non-Af Amer) BUN/Creatinine Ratio (10-20) Glucose (70-99) mg/dl POC Glucose (other) 176 H (70-99) mg/dl Calcium (8.5-10.1) mg/dl POC Ioniz Calcium Daily 1.19 (1.12-1.32) mmol/l Total Bilirubin (0.2-1) mg/dl AST (15-37) U/L ALT (12-78) U/L Alkaline Phosphatase (45-117) U/L POC Troponin I 1.36 H (0-0.045) ng/ml Troponin I (0-0.045) ng/ml Total Protein (6.4-8.2) gm/dl Albumin (3.4-5.0) gm/dl Globulin (2.5-4.0) gm/dl Albumin/Globulin Ratio (0.9-2) Lipase (73-393) U/L Administered Medications Nitroglycerin (Nitrostat) 0.4 mg SL UD PRN PRN Reason: Chest Pain Stop: 03/01/20 11:29 Last Admin: 01/31/20 11:41 Dose: 0.4 mg Documented by: [id number] Discontinued Medications Aspirin (Aspirin) Confirm Administered Dose 324 mg .ROUTE .STK-MED ONE Stop: 01/31/20 11:29 Last Admin: 01/31/20 11:31 Dose: 324 mg Documented by: [id number] Aspirin (Aspirin) 324 mg PO NOW STA Stop: 01/31/20 11:31 Last Admin: 01/31/20 11:35 Dose: Not Given Documented by: [id number] Sodium Chloride (Nss) 500 mls @ 999 mls/hr IV .Q31M DARCIE Stop: 01/31/20 12:00 Last Admin: 01/31/20 11:40 Dose: 999 mls/hr Documented by: [id number] Nitroglycerin (Nitrostat) Confirm Administered Dose 0.4 mg .ROUTE .STK-MED ONE Stop: 01/31/20 11:29 Last Admin: 01/31/20 11:31 Dose: 0.4 mg Documented by: [id number] Ondansetron HCl (Zofran) 4 mg IV NOW STA Stop: 01/31/20 11:31 Last Admin: 01/31/20 11:40 Dose: 4 mg Documented by: [id number] Blood Pressure Blood Pressure Findings: Normal blood pressure Blood Pressure Disposition: did not require urgent referral Discharge Plan Visit Data *Final* Discharge Date/Time: 01/31/20 12:00 Chief Complaint: Chest Pain Stated Complaint: CHEST PAIN, SOB ED Provider: Bayron Sanchez Discharge Problem: ST elevation (STEMI) myocardial infarction, Chest pain Patient Disposition: Still a Patient Discharge Instructions Interventions: ED Discharge Assessment Last Done: 01/31/20 12:00 Discharge Problem: ST elevation (STEMI) myocardial infarction Qualifiers: Involved coronary artery: LAD coronary artery Qualified Code(s): I21.02 - ST elevation (STEMI) myocardial infarction involving left anterior descending coronary artery Chest pain Qualifiers: Chest pain type: chest pain due to myocardial ischemia Ischemic chest pain type: other angina pectoris type Qualified Code(s): I20.8 - Other forms of angina pectoris
[2020-01-31] MEDS: NITROGLYCERIN SL 0.4 MG/TAB TAB SL PRN (11:41)
[2020-01-31] MEDS ORDERED: methylPREDNISolone 125 MG/2 ML VIAL ONE (11:47)
[2020-01-31] MEDS ORDERED: DiphenhydrAMINE HCL 50 MG/ML VIAL ONE (11:47)
[2020-01-31] MEDS ORDERED: FAMOTIDINE 20MG/5ML IV PUSH IV ONE (11:47)
[2020-01-31 11:52] LABS: Basophils # (auto) 0.02 K/uL (0-0.2); Basophils % (auto) 0.3 %; Eosinophils # (auto) 0.12 K/uL (0-0.5); Eosinophils % (auto) 1.8 %; Hematocrit (blood only) 32.9 % (37-47); Hemoglobin 9.9 g/dL (12.0-16.0); Immature Granulocytes # (auto) 0.02 K/uL (0.00-0.02); Immature Granulocytes % (auto) 0.3 %; Lymphocytes % (auto) 19.5 %; Mean Corpuscular Hemoglobin 22.7 pg (25-34); Mean Corpuscular Hgb Conc 30.1 g/dL (32-36); Mean Corpuscular Volume 75.3 fL (80-100); Mean Platelet Volume 9.4 fL (7.4-10.4); Monocytes # (auto) 0.46 K/uL (0.11-0.59); Monocytes % (auto) 6.9 %; Neutrophils # (auto) 4.73 K/uL (1.4-6.5); Neutrophils % (auto) 71.2 %; Platelet Count 298 K/uL (130-400); RDW Coefficient of Variation 17.8 % (11.5-14.5); RDW Standard Deviation 48.9 fL (36.4-46.3); Red Blood Count 4.37 M/uL (4.2-5.4); White Blood Count 6.65 K/uL (4.8-10.8)
[2020-01-31] MEDS ORDERED: TICAGRELOR 90 MG TAB PO ONE (11:52)
--- NOTE | 2020-01-31 11:53 | XRay Report ---
XR chest 1V portable HISTORY: 79 years-old Female Chest Pain acute atypical chest pain COMPARISON: Chest radiograph 01/30/2020 TECHNIQUE: AP view of the chest FINDINGS: Cardiac silhouette is enlarged. Mild interstitial coarsening with pulmonary vascular congestion. Calc ified plaque of the thoracic aortic arch. No pneumothorax or large pleural effusion. Eventration of t he right hemidiaphragm. Hiatal hernia. No lobar airspace consolidation. Bilateral shoulder arthroplas ties. Degenerative changes of the spine. IMPRESSION: 1. Cardiomegaly with pulmonary vascular congestion and interstitial coarsening suggestive of mild pul monary edema. 2. Hiatal hernia. ACT 112: Negative or not required by law. The above report was generated using voice recognition software. It may contain grammatical, syntax o r spelling errors. Electronically signed by: Harish Kelly M.D. 01/31/2020 11:52 AM
[2020-01-31 11:54] LABS: iSTAT Creatinine 0.9 mg/dl (0.6-1.3); iSTAT Hemoglobin 11.2 g/dl (12.0-16.0); iSTAT Ionized Calcium 1.19 mmol/l (1.12-1.32); iSTAT Potassium 3.6 mmol/L (3.3-5.0)
[2020-01-31] MEDS ORDERED: NiCARDipine HCL INJ 2.5 MG/ML 10 ML AMP ONE (12:03)
[2020-01-31] MEDS ORDERED: HEPARIN (PORCINE) 1000 UNIT/ML 10 ML (CATH LAB USE ONLY) ONE (12:03)
[2020-01-31] MEDS ORDERED: fentaNYL citrate 100 MCG/2 ML VIAL ONE (12:03)
[2020-01-31] MEDS ORDERED: MIDAZOLAM HCL 1 MG/ML 2ML VIAL ONE (12:03)
[2020-01-31] MEDS ORDERED: NITROGLYCERIN/D5W 100MCG/ML 20ML SYR ONE (12:04)
--- NOTE | 2020-01-31 12:04 | Pre Anesthesia Assessment ---
Date of Service January 31, 2020 Pre Sedation Assessment Vital Signs Temp Pulse Resp BP Pulse Ox 01/31/20 11:14 98.1 F 76 22 110/83 93 Cardiovascular RRR, no murmur, no edema Respiratory normal respiratory effort, lungs clear to auscultation Pre-Sedation Airway Assessment Smoking Status: Never smoker Hx Sleep Apnea: No Hx Difficult Intubation: No Short, Thick Neck: No Thyromental Distance: > or= 3.5 Finger Breadths Oral Cavity: + Dental Abnormalities and + WNL Mallampati Class: III ASA: ASA4 Procedure Planning Contraindications for Sedation: none Current Medications Reviewed: Yes Notes The planned sedation has been discussed with the patient. Informed Consent was obtained. I have identified the patient, determined the appropriateness of sedation and have assessed the patient immediately prior to the procedure. All medicine(s) and interventions are by my order.
--- NOTE | 2020-01-31 12:08 | Cardiology Consultation ---
Date of Consultation January 31, 2020 Assessment & Plan (1) Acute FL: Presentation consistent with anterior STEMI and recommend proceeding with emergent cardiac catheterization and likely primary PCI. No apparent contraindications to procedure. Discussed risks, benefits, alternatives of procedure with patient and they are willing to proceed. Given ticagrelor 180 mg in the ED. pretreated for contrast allergy with Solu- Medrol, Benadryl, famotidine. Further recommendations pending findings of coronary angiography. History of Present Illness History of Present Illness 79-year-old woman here with acute chest pain and ECG concerning for acute FL. Patient seen emergently in the ED after heart alert activated upon arrival. No prior cardiac history. Cardiac risk factors include hypertension, dyslipidemia, borderline diabetes, obesity. Other medical issues include obstructive sleep apnea. Chest pain began evening prior to admission, more than 12 hours ago. Pain has been largely persistent, was able to sleep overnight with the aid of Percocet. Pain 10/10 this morning and presented to ED. Denies similar symptoms in the past. Given sublingual nitroglycerin upon arrival Chest pain still 9/10 upon initial interview. Hemodynamically stable. EKG showed anterior ST elevations. Frequent PVCs on telemetry Allergies Allergy/AdvReac Type Severity Reaction Status Date / Time Penicillins Allergy Intermediate pruritis, Verified 01/31/20 12:09 swelling of extremeties amoxicillin Allergy Mild RASH Verified 01/31/20 12:09 Iodinated Contrast Media Allergy Unknown pt with Verified 01/31/20 12:09 topical iodine allergy iodine Allergy Unknown pruritis, Verified 01/31/20 12:09 contact dermatitis pork derived (porcine) Allergy Unknown unknown Verified 01/31/20 12:09 thimerosal Allergy Unknown unknown Verified 01/31/20 12:09 diazepam AdvReac Unknown HYPERACTIVE Verified 01/31/20 12:09 lisinopril AdvReac Unknown nausea Verified 01/31/20 12:09 meclofenamic acid AdvReac Unknown diarrhea Verified 01/31/20 12:09 naproxen AdvReac Unknown NAUSEA Verified 01/31/20 12:09 mcclomen Allergy Mild GI SYMPTOMS Uncoded 01/31/20 12:09 Flu Virus Vaccine Allergy Unknown unknown Uncoded 01/31/20 12:09 Home Medications Home Medications Medication Instructions Recorded Confirmed Type metformin 500 mg PO BID 01/31/20 01/31/20 History pantoprazole 20 mg PO Q2D 01/31/20 01/31/20 History ropinirole 0.25 mg PO DAILY 01/31/20 01/31/20 History valsartan-hydrochlorothiazide 1 tab PO DAILY 01/31/20 01/31/20 History Patient History Medical History Hypoxia (Inactive 01/10/14) FELICE (obstructive sleep apnea) Social History Preferred Language: Estonian Communication Ability: Effective 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 Beliefs That Will Affect Care: None Current Living Situation: Spouse Other Information That Helps Us Care for You: No Feels Safe at Home: Yes Safety Concerns: Feels Safe At This Time Smoking Status: Never smoker Do You Dip or Chew Tobacco: No ; Second Hand Exposure: No ; Tobacco Cessation Education Requested by Patient: No Hx Alcohol Use: No Hx Substance Use: Yes substance use type: opiates and prescription drug Last Used Substance: Unknown Review of Systems Review of Systems: Not obtained in the setting of emergency Physical Exam Physical Exam: General: Uncomfortable HEENT: Sclerae anicteric, mucous membranes moist Lungs: Clear to auscultation bilaterally Cardiac: Regular rate and rhythm Abdomen: Soft, nontender, nondistended, positive bowel sounds. Extremities: Warm, well perfused, 1-2+ lower extremity edema with chronic venous stasis changes. 2+ radial pulses Neuro: Nonfocal Psych: Alert orient x3, normal affect and mood Results & Data ([facility]) Vital Signs (Past 12 Hours) Vital Signs Temp Pulse Resp BP Pulse Ox 01/31/20 11:14 98.1 F 76 22 110/83 93 PG Care Time/CCT Total # of Minutes Spent Total Time Spent with Patient: Total time spent is greater than 50% in coordination of care (as documented) at patient's floor/unit and/or counseling patient: Coding Level of Care Code 62170 Inpt Consult Level 5 Diagnoses Acute FL I21.9
[2020-01-31 12:09] LABS: Albumin Level 3.7 gm/dl (3.4-5.0); BUN Creatinine Ratio 20.8 (10-20); Calcium 9.3 mg/dl (8.5-10.1); Creatinine Clr Calc Pharmacy 50.3 ml/min; Est GFR (African American) 63.5; Est GFR (Non-African American) 54.8; Potassium 3.6 mmol/L (3.5-5.1)
[2020-01-31 12:17] LABS: INR 1.1 (0.9-1.1); Partial Thromboplastin Time 28.3 Seconds (21.0-31.0); Prothrombin Time 11.2 Seconds (9.0-12.0)
[2020-01-31 12:21] LABS: Albumin Globulin Ratio 0.9 (0.9-2); Bilirubin,Total 0.7 mg/dl (0.2-1); Total Protein 7.7 gm/dl (6.4-8.2); Troponin I 1.68 ng/ml (0-0.045)
--- NOTE | 2020-01-31 12:45 | Electrocardiogram Report ---
Test Reason : Blood Pressure : / mmHG Vent. Rate : 073 BPM Atrial Rate : 073 BPM P-R Int : 134 ms QRS Dur : 092 ms QT Int : 400 ms P-R-T Axes : 059 030 064 degrees QTc Int : 440 ms Sinus rhythm with Premature supraventricular complexes Incomplete right bundle branch block Acute Anterior infarct Nonspecific ST elevation in Inferior leads Abnormal ECG When compared with ECG of 24-JUN-2017 14:22, Premature supraventricular complexes are now Present Acute Inferior infarct is now Present Nonspecific ST elevation in Inferior leads now present Confirmed by Burno Mendiola ([id number]) on 01/31/2020 12:45:09 PM Referred By: ER Confirmed By:Bruno Mendiola
[2020-01-31] MEDS ORDERED: ONDANSETRON INJ 2 MG/ML 2 ML VIAL IV PRN (12:51)
[2020-01-31] MEDS ORDERED: NITROGLYCERIN SL 0.4 MG/TAB TAB SL PRN (12:51)
[2020-01-31] MEDS ORDERED: ACETAMINOPHEN 325 MG TAB PO PRN (12:51)
[2020-01-31] MEDS ORDERED: SODIUM CHLORIDE 0.9% 1000ML 1,000 ML IV SCH (13:00)
[2020-01-31] MEDS ORDERED: ICU PROTOCOL FOR HYPERGLYCEMIA PRN ×2 (13:02→14:12)
--- NOTE | 2020-01-31 13:12 | History & Physical Report ---
Date of Service January 31, 2020 Assessment & Plan (1) ST elevation (STEMI) myocardial infarction: STEMI 2nd to 100% mid-LAD lesion. s/p heart alert with emergency heart cath by Dr Dailey. Successful deployment of 1 MORENA to LAD lesion. Stable hemodynamically post-cath. Loaded with aspirin & ticagrelor. Will continue both. Start beta nate and titrate as tolerated. Continue ARB. Start statin. Of note - apparently had myalgias with statin in past; watch carefully for side effects; consider coenzyme q10 supplementation as well. Check lipids, a1c in am. Trend troponin until peak. Check echo for LV function. Work on BP control. Good candidate for cardiac rehab in the future. Appreciate Dr Dailey and Dr Edouard's assistance. (2) Prediabetes: Check a1c. Hold metformin. ICU glycemic protocol. (3) Mixed hyperlipidemia: Check lipids in am. Consider TSH in am. Start statin. See above. (4) HTN (hypertension): Poorly controlled. Starting beta nate. Cont ARB. Titrate as needed. (5) Microcytic anemia: Check Fe studies in am. If iron def start supplementation and would arrange GI f/u post-d/c. Has significant GI symptoms by history/GERD. Maintain on PPI in light of DAP therapy and symptoms. (6) FELICE (obstructive sleep apnea): Uncertain if patient is on CPAP/BIPAP. Will inquire. (7) GERD (gastroesophageal reflux disease): PPI as noted above. (8) DVT prophylaxis: Defer to ICU attending. Will update family this afternoon. Admission and Anticipated Discharge Date Admission Date: January 31, 2020 Anticipated date of discharge: 02/02/20 History of Present Illness Chief Complaint: chest pain Primary Care Provider: Nicholas Casey MD 79yo female with history of pre-DM, HTN, hyperlipidemia, and GERD who presented with substernal chest pain beginning last night after eating dinner. Pain never radiated. Was associated with nausea on one occasion. Minimal dyspnea. No vomiting. Pain remitted for a time last pm, then started up again prior to bedtime. She took percocet x 1 for the pain and went to bed. She managed to sleep most of the night, then awoke just before 7am with pain in the same substernal location. The pain intensified as the morning went on. She called her PCP's office who advised going to the hospital. Upon arrival to [facility] her EKG showed ST segment elevation in the anterior leads suggestive of LAD infarction. Heart alert was called, and Dr Dailey took her to the laborer [facility]bark. This demonstrated a 100% occluded mid-LAD; he deployed 1 MORENA to this lesion. I saw the patient post-cath in the ICU. She was resting comfortably. She stated she had some residual substernal pain - about 4-5/10 - but her pain was a "20" upon presentation. Her only other complaint was that of urinary frequency. Allergies Allergy/AdvReac Type Severity Reaction Status Date / Time Penicillins Allergy Intermediate pruritis, Verified 01/31/20 12:09 swelling of extremeties amoxicillin Allergy Mild RASH Verified 01/31/20 12:09 Iodinated Contrast Media Allergy Unknown pt with Verified 01/31/20 12:09 topical iodine allergy iodine Allergy Unknown pruritis, Verified 01/31/20 12:09 contact dermatitis pork derived (porcine) Allergy Unknown unknown Verified 01/31/20 12:09 thimerosal Allergy Unknown unknown Verified 01/31/20 12:09 diazepam AdvReac Unknown HYPERACTIVE Verified 01/31/20 12:09 lisinopril AdvReac Unknown nausea Verified 01/31/20 12:09 meclofenamic acid AdvReac Unknown diarrhea Verified 01/31/20 12:09 naproxen AdvReac Unknown NAUSEA Verified 01/31/20 12:09 mcclomen Allergy Mild GI SYMPTOMS Uncoded 01/31/20 12:09 Flu Virus Vaccine Allergy Unknown unknown Uncoded 01/31/20 12:09 Home Medications Home Medications Medication Instructions Recorded Confirmed Type metformin 500 mg PO BID 01/31/20 01/31/20 History pantoprazole 20 mg PO Q2D 01/31/20 01/31/20 History ropinirole 0.25 mg PO DAILY 01/31/20 01/31/20 History valsartan-hydrochlorothiazide 1 tab PO DAILY 01/31/20 01/31/20 History Past Med/Surg History Medical History (Updated 01/31/20 @ 14:35 by Nicholas Pemberton) DJD of shoulder HTN (hypertension) Mixed hyperlipidemia FELICE (obstructive sleep apnea) Prediabetes Umbilical hernia (Acute 11/18/14) Ventral hernia Surgical History (Updated 01/31/20 @ 14:26 by Nicholas Pemberton) History of bladder suspension procedure History of total shoulder replacement b/l S/P cataract extraction b/l Total knee replacement status right Family History (Updated 01/31/20 @ 14:27 by Nicholas Pemberton) Father , in 90s from AAA Stroke AAA (abdominal aortic aneurysm) Mother , in her 70s Lung cancer Denies family history of Coronary heart disease Social History (Updated 01/31/20 @ 14:28 by Nicholas Pemberton) Preferred Language: Polish Communication Ability: Effective Social Media Coordinator Required: No Beliefs That Will Affect Care: None marital status: marital status details: 2 children Current Living Situation: Spouse Current Living Situation Comment: lives in [place] with current occupational status: retired 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[employer]; [employer]; 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; 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 Other Information That Helps Us Care for You: No Feels Safe at Home: Yes Safety Concerns: Feels Safe At This Time Smoking Status: Never smoker Do You Dip or Chew Tobacco: No ; Second Hand Exposure: No ; Tobacco Cessation Education Requested by Patient: No Hx Alcohol Use: Yes Alcohol type: hard liquor Alcohol Intake Frequency: Daily Hx Substance Use: Yes substance use type: opiates and prescription drug Last Used Substance: Unknown Physical Activity Frequency: Does not Exercise Review of Systems Constitutional: no fever, no chills, no anorexia, no weight loss and no weight gain Eyes: no worsening vision Ear, Nose, Mouth, Throat: + hearing loss; no dysphagia Respiratory: + cough (chronic x months ); no dyspnea on exertion Cardiovascular: as per Subjective / HPI, + chest pain and + edema (chronic); no orthopnea and no paroxysmal nocturnal dyspnea Gastrointestinal: + belching and + heartburn; no abdominal pain, no nausea, no vomiting, no blood in stools and no melena Genitourinary: + urinary frequency; no dysuria Musculoskeletal: + joint pain Integumentary: no rash Neurologic: no paralysis and no loss of sensation Psychiatric: no anxiety Endocrine: blood sugars well controlled Hematologic / Lymphatic: no easy bleeding Physical Exam Constitutional: well developed, well nourished and + obese; no acute distress and no altered mental status Eyes: PERRL (lens implants b/l ) ENMT: external ear and nose normal, oropharynx normal Neck: trachea midline, no thyromegaly Respiratory: + cough Auscultation: + rales (faint b/l bases); no wheezes Cardiovascular: Rate/Rhythm: regular rate and regular rhythm Heart Sounds: normal S1, normal S2 and + murmur (2/6 RUSB - systolic) Vessels: posterior tibial pulses present and dorsalis pedis pulses present; no JVD Extremities: + edema (<1+ b/l ) and + varicosities Gastrointestinal (Abdomen): normal bowel sounds, soft, nontender, no hepatosplenomegaly Inspection/Auscultation: + abdomen distended multiple scars on abdominal wall Musculoskeletal: no cyanosis or clubbing, extremities motor strength 5/5 Skin: no rashes, warm and dry Neurologic: deep tendon reflexes 2+ bilaterally and moves all extremities; no focal motor deficits Psychiatric: A+Ox3, euthymic affect Lymphatic: no cervical lymphadenopathy Results & Data Results & Data ([facility]) Vital Signs (Past 12 Hours) Vital Signs Temp Pulse Resp BP Pulse Ox 01/31/20 11:45 87 18 158/75 H 96 01/31/20 11:37 84 21 167/86 H 97 01/31/20 11:28 77 32 H 206/87 H 99 01/31/20 11:14 36.7 C 76 22 110/83 93 Laboratory Results Laboratory Results - last 24 hr 01/31/20 01/31/20 01/31/20 11:36 11:36 11:36 WBC 6.65 RBC 4.37 Hgb 9.9 L POC Hgb Hct 32.9 L POC Hct MCV 75.3 L MCH 22.7 L MCHC 30.1 L RDW Std Deviation 48.9 H RDW Coeff of Angelina 17.8 H Plt Count 298 MPV 9.4 Immature Gran % (Auto) 0.3 Neut % (Auto) 71.2 Lymph % (Auto) 19.5 [place] % (Auto) 6.9 Eos % (Auto) 1.8 Baso % (Auto) 0.3 Immature Gran # (Auto) 0.02 Neut # (Auto) 4.73 Lymph # (Auto) 1.30 [place] # (Auto) 0.46 Eos # (Auto) 0.12 Baso # (Auto) 0.02 PT 11.2 INR 1.1 APTT 28.3 PTT Ratio 1.0 Activ Coag Time Kaolin POC Sodium Sodium 135 L POC Potassium Potassium 3.6 POC Chloride Chloride 103 Carbon Dioxide 24 POC Total CO2 Anion Gap 9.0 POC Anion Gap POC BUN BUN 20 H Creatinine 0.97 POC Creatinine Est Cr Clr Drug Dosing 50.3 Est GFR ( Amer) 63.5 Est GFR (Non-Af Amer) 54.8 BUN/Creatinine Ratio 20.8 H Glucose 173 H POC Glucose (other) Calcium 9.3 POC Ioniz Calcium Daily Total Bilirubin 0.7 AST 69 H ALT 55 Alkaline Phosphatase 72 POC Troponin I Troponin I 1.680 H* Total Protein 7.7 Albumin 3.7 Globulin 4.0 Albumin/Globulin Ratio 0.9 Lipase 122 01/31/20 01/31/20 01/31/20 11:42 11:42 12:27 WBC RBC Hgb POC Hgb 11.2 L Hct POC Hct 33 L MCV MCH MCHC RDW Std Deviation RDW Coeff of Angelina Plt Count MPV Immature Gran % (Auto) Neut % (Auto) Lymph % (Auto) [place] % (Auto) Eos % (Auto) Baso % (Auto) Immature Gran # (Auto) Neut # (Auto) Lymph # (Auto) [place] # (Auto) Eos # (Auto) Baso # (Auto) PT INR APTT PTT Ratio Activ Coag Time Kaolin 208 H POC Sodium 136 Sodium POC Potassium 3.6 Potassium POC Chloride 101 Chloride Carbon Dioxide POC Total CO2 23 L Anion Gap POC Anion Gap 17.0 POC BUN 20 H BUN Creatinine POC Creatinine 0.9 Est Cr Clr Drug Dosing Est GFR ( Amer) Est GFR (Non-Af Amer) BUN/Creatinine Ratio Glucose POC Glucose (other) 176 H Calcium POC Ioniz Calcium Daily 1.19 Total Bilirubin AST ALT Alkaline Phosphatase POC Troponin I 1.36 H Troponin I Total Protein Albumin Globulin Albumin/Globulin Ratio Lipase Diagnostic Findings cxr - radiology report with concern for mild pulmonary edema EKG - my reading - STEMI anterior leads; inferior Q waves Code Status & VTE Plan Code Status full code but states would not want prolonged mech ventilation VTE Prophylaxis Plan VTE Prophylaxis will be ordered: Yes PG Care Time/CCT Total # of Minutes Spent Total Time Spent with Patient: Total time spent is greater than 50% in coordination of care (as documented) at patient's floor/unit and/or counseling patient: Coding Level of Care Code 14531 Initial Inpt Care Lvl [address] elevation (STEMI) myocardial infarction I21.02 Involved coronary artery: LAD coronary artery Prediabetes R73.03 Mixed hyperlipidemia E78.2 HTN (hypertension) I10 Hypertension type: essential hypertension Microcytic anemia D50.9 FELICE (obstructive sleep apnea) G47.33 GERD (gastroesophageal reflux disease) K21.9 Esophagitis presence: esophagitis presence not specified DVT prophylaxis Z29.9 (1) HTN (hypertension) Hypertension type: essential hypertension Qualified Code(s): I10 - Essential (primary) hypertension (2) ST elevation (STEMI) myocardial infarction Involved coronary artery: LAD coronary artery Qualified Code(s): I21.02 - ST elevation (STEMI) myocardial infarction involving left anterior descending coronary artery (3) GERD (gastroesophageal reflux disease) Esophagitis presence: esophagitis presence not specified Qualified Code(s): K21.9 - Gastro-esophageal reflux disease without esophagitis
--- NOTE | 2020-01-31 13:20 | Cardiac Catheterization ---
[facility] Data: Fagoter Cardiac Status Clinical evaluation leading to the procedure CAD Presenation: STEMI Anginal Classification: CCS IV Heart Failure: No Cardiogenic Shock within 24 Hours: No Cardiac Arrest within 24 Hours: No Imaging Studies Past 6 Months: No Stress Studies Past 6 Months: No Diagnostic Physicians Name: Chapin Dailey MD Status: Emergency Closure Device Percutaneous Entry Location: Radial Closure Device: Radial Band Recommendations: PCI without planned CABG PCI Indication: Immediate PCI for STEMI First Noted: First EKG Lesion Segment Name: mid LAD Culprit Artery: Yes Stenosis Prior to Rx (%): 100 Chronic Total Occlusion: No IVUS: No FFR: No Pre-Procedure ELLY Flow: 0 Previously Treated Lesion: No Lesion Complexity: Non-High/Non-C Lesion Length (mm): 25 Thrombus Present: Yes Bifurcation Lesion: No Guidewire Across Lesion: Stenosis Post-Procedure (%): 0 Post-Procedure ELLY Flow: 3 Devices(s) Deployed: Yes Yes Intraprocedure Events Significant Disection: No Perforation: No Cardiac Cath Procedure Full Procedure Date January 31, 2020 Pre-Procedure Diagnosis Pre-Procedure Diagnosis: STEMI AUC Score AUC Score: 9 Post-Procedure Diagnosis Post-Procedure Diagnosis: Severe CAD and Successful PCI Procedure(s) Performed Procedure(s) Performed: Coronary Angiography, Left Heart Cath and Drug Eluting Stent Cnc Manager Chapin Dailey MD Plow Holder(s) Kaylynn Estimated Blood Loss Estimated Blood Loss: 15 Medication(s) Medication(s): Aspirin, Fentanyl, Heparin, Lidocaine 1%, Nitroglycerin and Versed Medication(s): ticagrelor Summary of Findings Indication: STEMI/Heart Alert Access: 6Fr right radial artery Catheters: EBU 3.5 guide, JR4 catheter Findings: LM - Angiographically normal LAD -diffuse proximal mid disease up to 40 to 50%, 100% acute mid LAD occlusion Circumflex -large caliber vessel, gives off large OM1 without significant disease. Small distal circumflex without significant disease RCA -dominant, large caliber, distal luminal irregularities LVEDP -14 -- PCI -- Antithrombotic therapy: Heparin, ticagrelor Procedure: Left main cannulated with EBU 3.5 guide BMW wire passed across lesion into distal vessel Mid LAD lesion predilated with 2.0 compliant balloon Dilated lesion stented with 2.5 x 30 mm Jacob drug-eluting stent Stent post-dilated with 2.75 noncompliant balloon IC vasodilators administered for spasm Post procedure ELLY 3 flow, stent well expanded with minimal residual stenosis and no apparent cardiac complications. Arterial Closure: TR Summary: 1. Anterior STEMI/100% acute mid LAD occlusion 2. Residual 40 to 50% lateproximal LAD disease 3. No significant non-culprit vessel CAD 4. Normal intracardiac filling pressure 5. Successful PCI of mid LAD with single drug-eluting stent (2.5 x 30 mm Jacob; postdilated with 2.75 NC). Recommendations: Admit to ICU for continued monitoring Loaded with ticagrelor 180 mg Continue dual-antiplatelet therapy for at least 1 year. Trend troponins until peak, Check Echo Uptitrate beta-nate/ARB as BP allows High-dose statin Hemodynamics Rest Ao:: 147/64/101 Final Ao: 164/68/109 LV: 178/14 Recommendations Recommendations: PCI without planned CABG Specimens Specimens: None Radiation Exposure (mGy) 1480 Contrast (mls) 120 Fluids (cc crystalloids) Fluids (cc crystalloids): 75 Drains Drains: none Anesthesia moderate Procedural Complication(s) None Disposition ICU I attest to the content of the Intraoperative Record and any orders documented therein. Any exceptions are noted below. [facility] Card Cath Procedure Codes Cardiac Catheterization Procedure 1: Cardiovascular Cath Procedures: 21666 Coronaries and LHC (+/-LV) Moderate Sedation Procedure 1: Sedation/Anesthesia: 33199 Mod Sedation by the same physician;Init15 Min Child Age 5 & Up Procedure 2: Sedation/Anesthesia: 99143 Mod Sedation by the same physician; Ea [id number] Minutes Stenting Procedure 1: Cardiovascular Stent Procedures: 63478 Perc transluminal revascularization of acute sub/total occl, aMI PG Care Time/CCT Total # of Minutes Spent Total Time Spent with Patient: Total time spent is greater than 50% in coordination of care (as documented) at patient's floor/unit and/or counseling patient:
--- NOTE | 2020-01-31 14:34 | Critical Care Consultation ---
Date of Consultation January 31, 2020 Assessment & Plan (1) ST elevation (STEMI) myocardial infarction: -- STEMI Status post stent placement in mid LAD Continue with dual antiplatelet therapy, patient is already on PPI Continue metoprolol, patient is on ARBs, statin Continue to monitor EKGs Pain medication. Maintain saturation greater than 90%. --Hypertension Patient takes losartan hydrochlorothiazide at home. Patient did not take her medication at home. We will give her home dose of losartan right now --FELICE Continue with CPAP at night --Diabetes On metformin at home Monitor sugar --GERD Continue with PPI --Restless leg syndrome Continue with ropinirole --Microcytic anemia Monitor H&H --Prophylaxis Lovenox starting tomorrow Patient does have allergies to porcine but patient got heparin while she was having cardiac cath had no issues we will continue with Lovenox tomorrow. Please note the above document was generated using voice recognition software. It may contain grammatical, syntax or spelling errors. (2) FELICE (obstructive sleep apnea): (3) Mixed hyperlipidemia: History of Present Illness Attending Physician: Nicholas Pemberton History of Present Illness 79-year-old female with past medical history of sleep apnea, hypertension, restless leg syndrome, diabetes type 2 presented to the hospital with complaints of retrosternal chest pain radiating to the left arm. The chest pain has been going on for since late last night prior to presentation progressively getting worse. EKG showed anterior ST elevations in the ER with active chest pain. No dizziness, no palpitations. Patient was taken to [facility] Paramedic and stent was placed in the LAD. At the time of examination in the ICU patient was complaining of mild retrosternal chest pain severity 2 out of 10 improved since the time she came to the hospital. Denies any shortness of breath, no dizziness, no nausea or vomiting. No headache. Wanted to eat food. Social history: Non-smoker, drinks wine a glass every day, no illicit drug use. No pets at home Allergies Allergy/AdvReac Type Severity Reaction Status Date / Time Penicillins Allergy Intermediate pruritis, Verified 01/31/20 12:09 swelling of extremeties amoxicillin Allergy Mild RASH Verified 01/31/20 12:09 Iodinated Contrast Media Allergy Unknown pt with Verified 01/31/20 12:09 topical iodine allergy iodine Allergy Unknown pruritis, Verified 01/31/20 12:09 contact dermatitis pork derived (porcine) Allergy Unknown unknown Verified 01/31/20 12:09 thimerosal Allergy Unknown unknown Verified 01/31/20 12:09 diazepam AdvReac Unknown HYPERACTIVE Verified 01/31/20 12:09 lisinopril AdvReac Unknown nausea Verified 01/31/20 12:09 meclofenamic acid AdvReac Unknown diarrhea Verified 01/31/20 12:09 naproxen AdvReac Unknown NAUSEA Verified 01/31/20 12:09 mcclomen Allergy Mild GI SYMPTOMS Uncoded 01/31/20 12:09 Flu Virus Vaccine Allergy Unknown unknown Uncoded 01/31/20 12:09 Home Medications Home Medications Medication Instructions Recorded Confirmed Type metformin 500 mg PO BID 01/31/20 01/31/20 History pantoprazole 20 mg PO Q2D 01/31/20 01/31/20 History ropinirole 0.25 mg PO DAILY 01/31/20 01/31/20 History valsartan-hydrochlorothiazide 1 tab PO DAILY 01/31/20 01/31/20 History Patient History Medical History (Updated 01/31/20 @ 14:35 by Nicholas Pemberton) DJD of shoulder HTN (hypertension) Mixed hyperlipidemia FELICE (obstructive sleep apnea) Prediabetes Umbilical hernia (Acute 11/18/14) Ventral hernia Surgical History (Updated 01/31/20 @ 14:26 by Nicholas Pemberton) History of bladder suspension procedure History of total shoulder replacement b/l S/P cataract extraction b/l Total knee replacement status right Family History (Updated 01/31/20 @ 14:27 by Nicholas Pemberton) Father , in 90s from AAA Stroke AAA (abdominal aortic aneurysm) Mother , in her 70s Lung cancer Denies family history of Coronary heart disease Social History (Updated 01/31/20 @ 14:28 by Nicholas Pemberton) Preferred Language: Irish Communication Ability: Effective Finish Specialist Required: No Beliefs That Will Affect Care: None marital status: marital status details: 2 children Current Living Situation: Spouse Current Living Situation Comment: lives in [place] with current occupational status: retired 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[employer]; [employer]; 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; 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 Other Information That Helps Us Care for You: No Feels Safe at Home: Yes Safety Concerns: Feels Safe At This Time Smoking Status: Never smoker Do You Dip or Chew Tobacco: No ; Second Hand Exposure: No ; Tobacco Cessation Education Requested by Patient: No Hx Alcohol Use: Yes Alcohol type: hard liquor Alcohol Intake Frequency: Daily Hx Substance Use: Yes substance use type: opiates and prescription drug Last Used Substance: Unknown Physical Activity Frequency: Does not Exercise Review of Systems Review of Systems: All systems reviewed & are unremarkable except as noted in HPI & below Physical Exam Physical Exam: Constitutional: No acute distress HEENT: EOMI, PERRLA Respiratory system: Decreased air entry bilaterally, mild bilateral lower lobe crackles, no wheeze, no rhonchi CVS: S1-S2 positive, no murmurs or gallops Abdomen: Soft, nontender, nondistended, positive bowel sounds x4 Extremities: +2 pulses bilaterally radialis/ dorsalis pedis, no cyanosis, +1 edema bilateral lower extremity, positive varicosities bilateral lower extremity Neuro: Awake alert oriented x3 Psych: Normal mood and affect G/U: No Griffin Skin: no rashes, warm and dry Lymphatic: no cervical or axillary lymphadenopathy Results & Data Results & Data ([facility]) Vital Signs (Past 12 Hours) Vital Signs Temp Pulse Resp BP Pulse Ox 01/31/20 11:45 87 18 158/75 H 96 01/31/20 11:37 84 21 167/86 H 97 01/31/20 11:28 77 32 H 206/87 H 99 01/31/20 11:14 36.7 C 76 22 110/83 93 01/31/20 11:36 01/31/20 11:36 EKG during the ED: ST elevation appreciated in V1 V2 V3 along with 3 and aVF. Chest x-ray 01/31/2020: Portable film, increased pulmonary vascular congestion, bilateral costophrenic and cardiophrenic angles are clean Coding Level of Care Code Critical Care 1st 30-[address] elevation (STEMI) myocardial infarction I21.02 Involved coronary artery: LAD coronary artery FELICE (obstructive sleep apnea) G47.33 Mixed hyperlipidemia E78.2 Time Spent (min) 41 (1) ST elevation (STEMI) myocardial infarction Involved coronary artery: LAD coronary artery Qualified Code(s): I21.02 - ST elevation (STEMI) myocardial infarction involving left anterior descending coronary artery
[2020-01-31] MEDS ORDERED: VALSARTAN 80 MG TAB PO ONE (14:45)
[2020-01-31 15:28] LABS: Appearance Urine Clear (Clear); Bacteria Urine Automated Negative (Negative); Bilirubin Urine Negative (Negative); Blood Urine 2+ (Negative); Cast Urine Automated 0 /lpf (0-5); Color Urine Yellow; Glucose Urine UA Negative (Negative); Ketones Urine Negative (Negative); Leukocyte Esterase Urine Negative (Negative); Nitrite Urine Negative (Negative); Protein Urine Negative (Negative); RBC Urine Automated 0-4 /hpf (0-4); Specific Gravity Urine 1.016 (1.000-1.030); Urobilinogen Urine Negative (Negative); WBC Urine Automated 0 /hpf (0-5)
[2020-01-31] MEDS: ROPINIROLE HCL 0.25 MG TABLET PO SCH (20:30)
[2020-01-31] MEDS: METOPROLOL TARTRATE 25 MG TAB PO SCH (20:30)
[2020-01-31] MEDS ORDERED: GLUCAGON FOR INJ 1 MG VIAL SQ PRN (22:08)
[2020-01-31] MEDS ORDERED: GLUCOSE 10 TABS/TUBE PO PRN (22:08)
[2020-01-31] MEDS ORDERED: CARBOHYDRATES FOR HYPOGLYCEMIA PO PRN (22:08)
[2020-01-31] MEDS ORDERED: DEXTROSE 50% 50 ML SYRINGE IV PRN (22:08)
[2020-01-31] MEDS ORDERED: GLUCOSE 40% GEL 15 GM TUBE PO PRN (22:08)
[2020-01-31] MEDS: TICAGRELOR 90 MG TAB PO SCH (23:40)
[2020-01-31] MEDS: INSULIN ASPART 100 UNITS/ML 3 ML PEN SC SCH (23:43)
[2020-02-01 05:15] LABS: Basophils # (auto) 0.01 K/uL (0-0.2); Basophils % (auto) 0.1 %; Hematocrit (blood only) 30.9 % (37-47); Hemoglobin 9.3 g/dL (12.0-16.0); Immature Granulocytes # (auto) 0.03 K/uL (0.00-0.02); Immature Granulocytes % (auto) 0.3 %; Lymphocytes # (auto) 0.85 K/uL (1.2-3.4); Lymphocytes % (auto) 7.4 %; Mean Corpuscular Hemoglobin 22.6 pg (25-34); Mean Corpuscular Hgb Conc 30.1 g/dL (32-36); Mean Corpuscular Volume 75.2 fL (80-100); Mean Platelet Volume 9.9 fL (7.4-10.4); Monocytes # (auto) 0.77 K/uL (0.11-0.59); Monocytes % (auto) 6.7 %; Neutrophils # (auto) 9.86 K/uL (1.4-6.5); Neutrophils % (auto) 85.5 %; Platelet Count 335 K/uL (130-400); RDW Standard Deviation 49.7 fL (36.4-46.3); Red Blood Count 4.11 M/uL (4.2-5.4); White Blood Count 11.52 K/uL (4.8-10.8)
[2020-02-01 05:36] LABS: Estimated Average Glucose 174 mg/dl; Hemoglobin A1C 7.7 % (4.5-5.6)
[2020-02-01 05:51] LABS: BUN Creatinine Ratio 20.8 (10-20); Creatinine Clr Calc Pharmacy 47.3 ml/min; Est GFR (Non-African American) 50.9; Ferritin 8.3 ng/ml (8-388); Potassium 4.5 mmol/L (3.5-5.1)
--- NOTE | 2020-02-01 07:38 | Critical Care Progress Note ---
Date of Service February 01, 2020 Assessment & Plan (1) ST elevation (STEMI) myocardial infarction: -- STEMI Status post stent placement in mid LAD on 01/31/2020 Continue with dual antiplatelet therapy, patient is already on PPI Continue metoprolol, patient is on ARBs, statin Continue to monitor EKGs. Troponins trending down Pain medication. Maintain saturation greater than 90%. --Hypertension Patient takes losartan hydrochlorothiazide at home. Blood pressure better controlled. --FELICE Continue with CPAP at night --Diabetes On metformin at home Monitor sugar --GERD Continue with PPI --Restless leg syndrome Continue with ropinirole --Microcytic iron deficiency anemia Monitor H&H Start the patient on Feosol along with stool softener. --Prophylaxis Lovenox Plan: Patient is hemodynamically stable to be sent to the medical floor. Please note the above document was generated using voice recognition software. It may contain grammatical, syntax or spelling errors. (2) FELICE (obstructive sleep apnea): (3) Mixed hyperlipidemia: Admission and Anticipated Discharge Date Admission Date: January 31, 2020 Anticipated date of discharge: 02/02/20 Subjective Patient seen and examined at bedside. No acute distress, no adverse events overnight. Chest pain has resolved. Denies any shortness of breath. No dizziness, no headache. No nausea or vomiting. Good appetite. Asking to go home. Review of Systems Review of Systems: All systems reviewed & are unremarkable except as noted in HPI & below Physical Exam Physical Exam: Constitutional: No acute distress HEENT: EOMI, PERRLA Respiratory system: Decreased air entry bilaterally, no crackles, no wheeze, no rhonchi CVS: S1-S2 positive, positive 2 out of 6 systolic ejection murmur best appreciated at the aorta Abdomen: Soft, nontender, nondistended, positive bowel sounds x4 Extremities: +2 pulses bilaterally radialis/ dorsalis pedis, no cyanosis, +1 edema bilateral lower extremity, positive varicosities bilateral lower extremity Neuro: Awake alert oriented x3 Psych: Normal mood and affect G/U: No Griffin Skin: no rashes, warm and dry Lymphatic: no cervical or axillary lymphadenopathy Results & Data Results & Data ([facility]) Vital Signs (Past 12 Hours) Vital Signs Temp Pulse Pulse Resp BP BP Pulse Ox 02/01/20 06:00 36.7 C 88 20 128/61 89 L 02/01/20 05:51 66 17 125/61 90 02/01/20 05:36 66 16 127/62 92 02/01/20 05:21 66 19 127/70 91 02/01/20 05:06 67 17 142/64 H 91 02/01/20 05:00 67 14 91 02/01/20 04:51 63 19 122/82 89 L 02/01/20 04:36 65 17 114/66 89 L 02/01/20 04:21 74 20 131/63 89 L 02/01/20 04:06 67 19 126/64 91 02/01/20 04:00 68 18 90 02/01/20 03:00 37 C 64 19 91 02/01/20 02:51 65 18 136/76 93 02/01/20 02:36 70 21 132/83 93 02/01/20 02:21 67 16 141/65 H 92 02/01/20 02:06 57 L 20 151/75 H 92 02/01/20 02:00 36.7 C 64 18 93 02/01/20 01:51 66 18 155/73 H 91 02/01/20 01:36 63 18 142/73 H 92 02/01/20 01:21 65 18 156/85 H 90 02/01/20 01:06 64 21 140/69 88 L 02/01/20 01:00 36.6 C 63 70 23 156/85 H 90 02/01/20 00:00 36.7 C 72 71 23 153/77 H 91 01/31/20 23:36 61 19 143/74 H 94 01/31/20 23:21 65 18 151/77 H 92 01/31/20 23:06 65 20 144/69 H 92 01/31/20 23:00 67 18 88 L 01/31/20 22:51 65 22 141/76 H 80 L 01/31/20 22:36 64 21 136/75 91 01/31/20 22:21 62 21 143/85 H 94 01/31/20 22:05 80 28 H 140/74 94 01/31/20 22:00 36.6 C 67 62 19 140/74 93 01/31/20 21:00 64 21 141/78 H 92 01/31/20 20:00 36.7 C 64 20 156/101 H 95 02/01/20 04:54 02/01/20 04:54 Coding Level of Care Code Critical Care 1st 30-[address] elevation (STEMI) myocardial infarction I21.02 Involved coronary artery: LAD coronary artery FELICE (obstructive sleep apnea) G47.33 Mixed hyperlipidemia E78.2 Time Spent (min) 37 (1) ST elevation (STEMI) myocardial infarction Involved coronary artery: LAD coronary artery Qualified Code(s): I21.02 - ST elevation (STEMI) myocardial infarction involving left anterior descending coronary artery
[2020-02-01] MEDS: METOPROLOL TARTRATE 25 MG TAB PO SCH ×2 (07:54→20:46)
[2020-02-01] MEDS: ENOXAPARIN INJ 40 MG/0.4 ML SYR SQ SCH (07:54)
[2020-02-01] MEDS: TICAGRELOR 90 MG TAB PO SCH ×2 (07:54→20:47)
[2020-02-01] MEDS: ASPIRIN 81 MG ECTAB PO SCH (07:55)
[2020-02-01] MEDS: ATORVASTATIN 40 MG TAB PO SCH (07:55)
[2020-02-01] MEDS: PANTOprazole 40 MG TAB PO SCH (07:55)
[2020-02-01] MEDS: INSULIN ASPART 100 UNITS/ML 3 ML PEN SC SCH ×4 (08:22→20:49)
[2020-02-01] MEDS: SENNA 8.6 MG TAB PO SCH (08:25)
[2020-02-01] MEDS: VALSARTAN 80 MG TAB PO SCH (08:25)
--- NOTE | 2020-02-01 13:45 | XCELERA ---
[id number] \\[email or web address]\[email or web address]\[id number]
--- NOTE | 2020-02-01 15:18 | Cardiology Progress Note ---
Date of Service February 01, 2020 Assessment & Plan (1) ST elevation (STEMI) myocardial infarction: --Post primary PCI with single MORENA to mid LAD 2. No significant non-culprit vessel disease 3. Preserved LV function with apical, mid septal wall motion abnormality 4. Type 2 diabetes 5. Dyslipidemia 6. Anemia 7. FELICE Patient chest pain-free. Troponin is peaked. Hemodynamically and electrically stable overnight. LV function preserved on echo No significant access site complications. Continue DAPT with aspirin, ticagrelor for at least 1 year Continue current valsartan, metoprolol Continue high intensity statin From a cardiac standpoint okay with transfer to telemetry today Plan for likely discharge tomorrow with cardiology follow-up with me in 2 weeks Admission and Anticipated Discharge Date Admission Date: January 31, 2020 Anticipated date of discharge: 02/02/20 Subjective Triple this afternoon. Denies any recurrent chest pain. Still with long-term cough. Some mild dyspnea this morning which is resolved. No other new concerns. Telemetry reviewedperiods of bigeminy but no other significant arrhythmia Review of Systems Review of Systems: All systems reviewed & are unremarkable except as noted in HPI & below Physical Exam Physical Exam: General: Comfortable, no acute distress HEENT: Sclerae anicteric, mucous membranes moist Lungs: Clear to auscultation bilaterally Cardiac: Regular rate and rhythm Abdomen: Soft, nontender Extremities: Warm, well perfused, 1+ lower extremity edema with chronic venous stasis changes. 2+ radial pulses. Right radial artery access site with ecchymosis, tenderness but no hematoma. Distal pulse and sensation intact. Neuro: Nonfocal Psych: Alert orient x3, normal affect and mood Results & Data ([facility]) Vital Signs (Past 12 Hours) Vital Signs Temp Pulse Resp BP Pulse Ox 02/01/20 10:02 77 26 H 110/53 L 02/01/20 08:24 98.1 F 75 20 121/74 02/01/20 08:00 69 02/01/20 07:24 77 17 124/62 95 02/01/20 06:00 98.1 F 88 20 128/61 89 L 02/01/20 05:51 66 17 125/61 90 02/01/20 05:36 66 16 127/62 92 02/01/20 05:21 66 19 127/70 91 02/01/20 05:06 67 17 142/64 H 91 02/01/20 05:00 67 14 91 02/01/20 04:51 63 19 122/82 89 L 02/01/20 04:36 65 17 114/66 89 L 02/01/20 04:21 74 20 131/63 89 L 02/01/20 04:06 67 19 126/64 91 02/01/20 04:00 68 18 90 PG Care Time/CCT Total # of Minutes Spent Total Time Spent with Patient: Total time spent is greater than 50% in coordination of care (as documented) at patient's floor/unit and/or counseling patient: Coding Level of Care Code 37898 Subseq Hosp Care Lvl [address] elevation (STEMI) myocardial infarction I21.02 Involved coronary artery: LAD coronary artery (1) ST elevation (STEMI) myocardial infarction Involved coronary artery: LAD coronary artery Qualified Code(s): I21.02 - ST elevation (STEMI) myocardial infarction involving left anterior descending coronary artery
--- NOTE | 2020-02-01 15:26 | Electrocardiogram Report ---
Test Reason : Blood Pressure : / mmHG Vent. Rate : 070 BPM Atrial Rate : 070 BPM P-R Int : 142 ms QRS Dur : 078 ms QT Int : 390 ms P-R-T Axes : 059 -10 065 degrees QTc Int : 421 ms Normal sinus rhythm Possible Inferior infarct (cited on or before 31-JAN-2020) Anteroseptal infarct (cited on or before 31-JAN-2020), in evolution Abnormal ECG When compared with ECG of 31-JAN-2020 11:25, Premature supraventricular complexes are no longer Present Incomplete right bundle branch block is no longer Present Confirmed by Sin Devi ([id number]) on 02/01/2020 3:26:18 PM Referred By: REFERRED SELF Confirmed By:Sin Devi
[2020-02-01] MEDS: FERROUS SULFATE 325 MG TAB PO SCH (16:48)
[2020-02-01] MEDS: NITROGLYCERIN SL 0.4 MG/TAB TAB SL PRN (20:40)
[2020-02-01] MEDS: ROPINIROLE HCL 0.25 MG TABLET PO SCH (20:47)
--- NOTE | 2020-02-01 23:02 | Hospitalist Progress Note ---
Date of Service February 01, 2020 Assessment & Plan (1) ST elevation (STEMI) myocardial infarction: STEMI 2nd to 100% mid-LAD lesion. s/p heart alert with emergency heart cath by Dr Dailey. Successful deployment of 1 MORENA to LAD lesion. Stable hemodynamically post-cath. Patient is currently chest pain-free. Troponin appears to have peaked. Hemodynamically and electrically stable overnight. LV function preserved on echo No significant access site complications. Continue DAPT with aspirin, ticagrelor for at least 1 year Continue current valsartan, metoprolol Continue high intensity statin Plan is to discharge in AM. (2) Prediabetes: Check a1c. Hold metformin. ICU glycemic protocol. (3) Mixed hyperlipidemia: Check lipids in am. Consider TSH in am. Start statin. See above. (4) HTN (hypertension): Poorly controlled. Starting beta nate. Cont ARB. Titrate as needed. (5) Microcytic anemia: Check Fe studies in am. If iron def start supplementation and would arrange GI f/u post-d/c. Has significant GI symptoms by history/GERD. Maintain on PPI in light of DAP therapy and symptoms. (6) FELICE (obstructive sleep apnea): Uncertain if patient is on CPAP/BIPAP. Will inquire. (7) GERD (gastroesophageal reflux disease): PPI as noted above. (8) DVT prophylaxis: Defer to ICU attending. Will update family this afternoon. Admission and Anticipated Discharge Date Admission Date: January 31, 2020 Anticipated date of discharge: 02/02/20 Subjective 79 yo female is currently pain free. She has no new complaints. Review of Systems Ear, Nose, Mouth, Throat: + hearing loss; no dysphagia Respiratory: + cough (chronic x months ); no dyspnea on exertion Cardiovascular: see below, no chest pain, no orthopnea and no paroxysmal nocturnal dyspnea Gastrointestinal: no abdominal pain, no belching, no heartburn, no nausea, no vomiting, no blood in stools and no melena Genitourinary: + urinary frequency; no dysuria Musculoskeletal: + joint pain Endocrine: blood sugars well controlled Physical Exam Constitutional: well developed, well nourished and + obese; no acute distress and no altered mental status Eyes: PERRL (lens implants b/l ) ENMT: external ear and nose normal, oropharynx normal Neck: trachea midline, no thyromegaly Respiratory: + cough Auscultation: + rales (faint b/l bases); no wheezes Cardiovascular: Rate/Rhythm: regular rate and regular rhythm Heart Sounds: normal S1, normal S2 and + murmur (2/6 RUSB - systolic) Vessels: posterior tibial pulses present and dorsalis pedis pulses present; no JVD Extremities: + edema (<1+ b/l ) and + varicosities Gastrointestinal (Abdomen): normal bowel sounds, soft, nontender, no hepatosplenomegaly Inspection/Auscultation: + abdomen distended Musculoskeletal: no cyanosis or clubbing, extremities motor strength 5/5 Skin: no rashes, warm and dry Neurologic: deep tendon reflexes 2+ bilaterally and moves all extremities; no focal motor deficits Psychiatric: A+Ox3, euthymic affect Lymphatic: no cervical lymphadenopathy Results & Data Results & Data ([facility]) Vital Signs (Past 12 Hours) Vital Signs Temp Pulse Resp BP Pulse Ox 02/01/20 19:47 79 02/01/20 19:20 37.1 C 69 20 138/69 96 02/01/20 16:00 63 02/01/20 14:24 68 23 123/75 95 02/01/20 13:24 75 25 H 105/55 L 93 02/01/20 12:24 36.6 C 71 21 115/57 L 99 PG Care Time/CCT Total # of Minutes Spent Total Time Spent with Patient: Total time spent is greater than 50% in coordination of care (as documented) at patient's floor/unit and/or counseling patient: Coding Level of Care Code 24659 Subseq Hosp Care Lvl [address] elevation (STEMI) myocardial infarction I21.02 Involved coronary artery: LAD coronary artery Prediabetes R73.03 Mixed hyperlipidemia E78.2 HTN (hypertension) I10 Hypertension type: essential hypertension Microcytic anemia D50.9 FELICE (obstructive sleep apnea) G47.33 GERD (gastroesophageal reflux disease) K21.9 Esophagitis presence: esophagitis presence not specified DVT prophylaxis Z29.9 Time Spent (min) 35 (1) ST elevation (STEMI) myocardial infarction Involved coronary artery: LAD coronary artery Qualified Code(s): I21.02 - ST elevation (STEMI) myocardial infarction involving left anterior descending coronary artery (2) GERD (gastroesophageal reflux disease) Esophagitis presence: esophagitis presence not specified Qualified Code(s): K21.9 - Gastro-esophageal reflux disease without esophagitis (3) HTN (hypertension) Hypertension type: essential hypertension Qualified Code(s): I10 - Essential (primary) hypertension
[2020-02-02 05:29] LABS: BUN Creatinine Ratio 31.1 (10-20); Calcium 9.6 mg/dl (8.5-10.1); Creatinine Clr Calc Pharmacy 48.7 ml/min; Est GFR (African American) 61.2; Est GFR (Non-African American) 52.8; Potassium 3.9 mmol/L (3.5-5.1)
[2020-02-02] MEDS: INSULIN ASPART 100 UNITS/ML 3 ML PEN SC SCH ×4 (08:10→20:26)
[2020-02-02] MEDS: FERROUS SULFATE 325 MG TAB PO SCH ×2 (08:11→17:02)
[2020-02-02] MEDS: TICAGRELOR 90 MG TAB PO SCH ×2 (08:11→20:23)
[2020-02-02] MEDS: VALSARTAN 80 MG TAB PO SCH (08:11)
[2020-02-02] MEDS: ATORVASTATIN 40 MG TAB PO SCH (08:12)
[2020-02-02] MEDS: METOPROLOL TARTRATE 25 MG TAB PO SCH (08:12)
[2020-02-02] MEDS: ASPIRIN 81 MG ECTAB PO SCH (08:12)
[2020-02-02] MEDS: PANTOprazole 40 MG TAB PO SCH (08:13)
[2020-02-02] MEDS: SENNA 8.6 MG TAB PO SCH (08:13)
[2020-02-02] MEDS: ENOXAPARIN INJ 40 MG/0.4 ML SYR SQ SCH (08:13)
--- NOTE | 2020-02-02 10:07 | Electrocardiogram Report ---
Test Reason : Blood Pressure : / mmHG Vent. Rate : 066 BPM Atrial Rate : 066 BPM P-R Int : 146 ms QRS Dur : 078 ms QT Int : 466 ms P-R-T Axes : 058 -10 086 degrees QTc Int : 488 ms Normal sinus rhythm Possible Inferior infarct (cited on or before 31-JAN-2020) Anterolateral infarct (cited on or before 31-JAN-2020) Abnormal ECG When compared with ECG of 31-JAN-2020 14:45, Serial changes of evolving Anterior infarct Present Serial changes of evolving Anterolateral infarct Present Confirmed by Bruno Mendiola ([id number]) on 02/02/2020 10:06:57 AM Referred By: REFERRED SELF Confirmed By:Bruno Mendiola
[2020-02-02] MEDS ORDERED: METOPROLOL TARTRATE 25 MG TAB PO ONE (11:03)
--- NOTE | 2020-02-02 14:49 | Cardiology Progress Note ---
Date of Service February 02, 2020 Assessment & Plan (1) ST elevation (STEMI) myocardial infarction: No evidence of ongoing myocardial ischemia, limited wall motion abnormalities with preserved systolic function on echo, hemodynamics generally favorable. Accelerated idioventricular rhythm likely a benign reperfusion phenomenon, would not aggressively titrate beta-nate with borderline bradycardia (one of her metoprolol doses was already held). Mild orthostatic symptoms but not orthostatic on exam today. Given orthostatic symptoms, another reason to not aggressively titrate metoprolol (25 mg dose BID should be sufficient). Recommendations as per Dr. Dailey: Continue DAPT with aspirin, ticagrelor for at least 1 year Continue current valsartan, metoprolol Continue high intensity statin Discharge this morning was held because of her orthostatic symptoms and transient dysrhythmias, continue to monitor with anticipated discharge early tomorrow if no further dysrhythmias. Admission and Anticipated Discharge Date Admission Date: January 31, 2020 Anticipated date of discharge: 02/02/20 Subjective Patient denies chest pain, dyspnea, subjective palpitations, presyncope, or syncope. She does note some lightheadedness when standing up from time to time. Telemetry shows several runs of accelerated idioventricular rhythm (105 bpm), otherwise benign. Hemodynamics favorable with low normal BP (no orthostatic change upon standing), pulse in the 50s. Physical Exam Physical Exam: No distress. Skin: no ecchymoses or generalized lesions. HEENT: unremarkable. Neck: no JVD or carotid bruits. Lungs clear. Cardiac: regular rhythm, 2/6 right upper sternal border systolic murmur radiating toward the precordium, intact aortic closure sound.No diastolic murmur or gallop. Abdomen benign. Extremities: no edema, radial and dorsalis pedis pulses brisk, good capillary refill. Neurologic: normal affect, nonfocal. Results & Data ([facility]) Vital Signs (Past 12 Hours) Vital Signs Temp Pulse Pulse Resp BP BP Pulse Ox 02/02/20 11:30 98.2 F 58 L 22 117/55 L 97 02/02/20 11:00 97.7 F 60 18 117/55 L 95 02/02/20 07:19 98.1 F 64 15 113/62 98 02/02/20 03:15 98.4 F 61 18 133/67 97 Laboratory Results 02/01/20 02/02/20 04:54 04:25 WBC 11.52 H Hgb 9.3 L Creatinine 1.00 Diagnostic Findings Echocardiogram yesterday showed EF 60 to 65% with an akinetic apex and hypokinesis of the mid anteroseptal and septal mora. Mild pulmonary hypertension noted. PG Care Time/CCT Total # of Minutes Spent Total Time Spent with Patient: Total time spent is greater than 50% in coordination of care (as documented) at patient's floor/unit and/or counseling patient: Coding Level of Care Code 21346 Subseq Hosp Care Lvl [address] elevation (STEMI) myocardial infarction I21.02 Involved coronary artery: LAD coronary artery (1) ST elevation (STEMI) myocardial infarction Involved coronary artery: LAD coronary artery Qualified Code(s): I21.02 - ST elevation (STEMI) myocardial infarction involving left anterior descending coronary artery
[2020-02-02] MEDS: METOPROLOL TARTRATE 50 MG TAB PO SCH (20:24)
[2020-02-02] MEDS: ROPINIROLE HCL 0.25 MG TABLET PO SCH (20:24)
--- NOTE | 2020-02-02 22:32 | Hospitalist Progress Note ---
Date of Service February 02, 2020 Assessment & Plan (1) ST elevation (STEMI) myocardial infarction: STEMI 2nd to 100% mid-LAD lesion. s/p heart alert with emergency heart cath by Dr Dailey. Successful deployment of 1 MORENA to LAD lesion. Stable hemodynamically post-cath. Patient is currently chest pain-free. Troponin appears to have peaked. Hemodynamically and electrically stable overnight. LV function preserved on echo No significant access site complications. Continue DAPT with aspirin, ticagrelor for at least 1 year Continue current valsartan, metoprolol Continue high intensity statin Due to VPCs, will increase metoprolol to 50 mg PO BID. (2) Prediabetes: Check a1c. Hold metformin. ICU glycemic protocol. (3) Mixed hyperlipidemia: Check lipids in am. Consider TSH in am. Start statin. See above. (4) HTN (hypertension): Poorly controlled. Starting beta nate. Cont ARB. Titrate as needed. (5) Microcytic anemia: iron is low, will discharge on ferritin. Has significant GI symptoms by history/GERD. Maintain on PPI in light of DAP therapy and symptoms. (6) FELICE (obstructive sleep apnea): Uncertain if patient is on CPAP/BIPAP. Will inquire. (7) GERD (gastroesophageal reflux disease): PPI as noted above. (8) DVT prophylaxis: Defer to ICU attending. oN [facility] Admission and Anticipated Discharge Date Admission Date: January 31, 2020 Anticipated date of discharge: 02/02/20 Subjective Patient reports feeling well. She did have an episode of intermittent SOB and palpitations. Her tele monitor is showing multiple episodes of VPCs. Patient denies any chest pain. Review of Systems Review of Systems: All systems reviewed & are unremarkable except as noted in HPI & below Physical Exam Constitutional: well developed, well nourished and + obese; no acute distress and no altered mental status Eyes: PERRL (lens implants b/l ) ENMT: external ear and nose normal, oropharynx normal Neck: trachea midline, no thyromegaly Respiratory: + cough Auscultation: + rales (faint b/l bases); no wheezes Cardiovascular: Rate/Rhythm: regular rate and regular rhythm Heart Sounds: normal S1, normal S2 and + murmur (2/6 RUSB - systolic) Vessels: posterior tibial pulses present and dorsalis pedis pulses present; no JVD Extremities: + edema (<1+ b/l ) and + varicosities Gastrointestinal (Abdomen): normal bowel sounds, soft, nontender, no hepatosplenomegaly Inspection/Auscultation: + abdomen distended Musculoskeletal: no cyanosis or clubbing, extremities motor strength 5/5 Skin: no rashes, warm and dry Neurologic: deep tendon reflexes 2+ bilaterally and moves all extremities; no focal motor deficits Psychiatric: A+Ox3, euthymic affect Lymphatic: no cervical lymphadenopathy Results & Data Results & Data ([facility]) Vital Signs (Past 12 Hours) Vital Signs Temp Pulse Resp BP Pulse Ox 02/02/20 20:00 36.5 C 71 19 137/61 98 02/02/20 16:05 36.6 C 61 18 135/65 97 02/02/20 11:30 36.8 C 58 L 22 117/55 L 97 02/02/20 11:00 36.5 C 60 18 117/55 L 95 PG Care Time/CCT Total # of Minutes Spent Total Time Spent with Patient: Total time spent is greater than 50% in coordination of care (as documented) at patient's floor/unit and/or counseling patient: Coding Level of Care Code 25721 Subseq Hosp Care Lvl [address] elevation (STEMI) myocardial infarction I21.02 Involved coronary artery: LAD coronary artery Prediabetes R73.03 Mixed hyperlipidemia E78.2 HTN (hypertension) I10 Hypertension type: essential hypertension Microcytic anemia D50.9 FEILCE (obstructive sleep apnea) G47.33 GERD (gastroesophageal reflux disease) K21.9 Esophagitis presence: esophagitis presence not specified DVT prophylaxis Z29.9 Time Spent (min) 35 (1) ST elevation (STEMI) myocardial infarction Involved coronary artery: LAD coronary artery Qualified Code(s): I21.02 - ST elevation (STEMI) myocardial infarction involving left anterior descending coronary artery (2) GERD (gastroesophageal reflux disease) Esophagitis presence: esophagitis presence not specified Qualified Code(s): K21.9 - Gastro-esophageal reflux disease without esophagitis (3) HTN (hypertension) Hypertension type: essential hypertension Qualified Code(s): I10 - Essential (primary) hypertension
[2020-02-03] MEDS ORDERED: METOPROLOL SUCC 50MG EXT REL TAB PO SCH
[2020-02-03 04:36] LABS: Creatinine Clr Calc Pharmacy 50.7 ml/min; Est GFR (African American) 65.9; Est GFR (Non-African American) 56.9
[2020-02-03] MEDS: FERROUS SULFATE 325 MG TAB PO SCH (08:22)
[2020-02-03] MEDS: VALSARTAN 80 MG TAB PO SCH (08:22)
[2020-02-03] MEDS: METOPROLOL TARTRATE 50 MG TAB PO SCH (08:23)
[2020-02-03] MEDS: SENNA 8.6 MG TAB PO SCH ×2 (08:24→08:35)
[2020-02-03] MEDS: ATORVASTATIN 40 MG TAB PO SCH (08:24)
[2020-02-03] MEDS: ASPIRIN 81 MG ECTAB PO SCH (08:25)
[2020-02-03] MEDS: ENOXAPARIN INJ 40 MG/0.4 ML SYR SQ SCH (08:26)
[2020-02-03] MEDS: TICAGRELOR 90 MG TAB PO SCH (08:27)
[2020-02-03] MEDS: INSULIN ASPART 100 UNITS/ML 3 ML PEN SC SCH ×2 (08:29→11:54)
[2020-02-03] MEDS: PANTOprazole 40 MG TAB PO SCH (08:49)
[2020-02-03] MEDS ORDERED: PANTOprazole 40 MG TAB PO SCH (09:00)
[2020-02-03] MEDS ORDERED: ROPINIROLE HCL 0.25 MG TABLET PO SCH (09:00)
--- NOTE | 2020-02-03 09:10 | Cardiology Progress Note ---
Date of Service February 03, 2020 Assessment & Plan (1) ST elevation (STEMI) myocardial infarction: No evidence of ongoing myocardial ischemia, limited wall motion abnormalities with preserved systolic function on echo, hemodynamics generally favorable. No further rhythm issues. As noted, would reduce metoprolol to 25 mg twice daily (she did receive 50 mg last evening but her morning dose today was held due to bradycardia). Recommendations as per Dr. Dailey: Continue DAPT with aspirin, ticagrelor for at least 1 year Continue current valsartan, metoprolol Continue high intensity statin Okay for discharge. She would like any new prescriptions electronically sent to [facility] pharmacy on [address]. Admission and Anticipated Discharge Date Admission Date: January 31, 2020 Anticipated date of discharge: 02/02/20 Subjective Patient denies chest pain, dyspnea, subjective palpitations, presyncope, or syncope. No further lightheadedness. Telemetry benign overnight, no further episodes of accelerated idioventricular rhythm over the past 24 hours. Hemodynamics favorable with normal BP, pulse in the 50s. Physical Exam Physical Exam: No distress. Skin: no ecchymoses or generalized lesions. HEENT: unremarkable. Neck: no JVD or carotid bruits. Lungs clear. Cardiac: regular rhythm, 2/6 right upper sternal border systolic murmur radiating toward the precordium, intact aortic closure sound.No diastolic murmur or gallop. Abdomen benign. Extremities: no edema, radial and dorsalis pedis pulses brisk, good capillary refill. Neurologic: normal affect, nonfocal. Results & Data ([facility]) Vital Signs (Past 12 Hours) Vital Signs Temp Pulse Pulse Resp BP Pulse Ox 02/03/20 07:48 97.9 F 56 L 17 114/65 99 02/03/20 07:00 58 L 02/03/20 04:00 98.2 F 63 16 119/62 97 02/02/20 23:19 98.6 F 56 L 18 116/59 L 98 PG Care Time/CCT Total # of Minutes Spent Total Time Spent with Patient: Total time spent is greater than 50% in coordination of care (as documented) at patient's floor/unit and/or counseling patient: Coding Level of Care Code 68524 Subseq Hosp Care Lvl [address] elevation (STEMI) myocardial infarction I21.02 Involved coronary artery: LAD coronary artery (1) ST elevation (STEMI) myocardial infarction Involved coronary artery: LAD coronary artery Qualified Code(s): I21.02 - ST elevation (STEMI) myocardial infarction involving left anterior descending coronary artery
--- NOTE | 2020-02-03 09:54 | Electrocardiogram Report ---
Test Reason : Blood Pressure : / mmHG Vent. Rate : 061 BPM Atrial Rate : 061 BPM P-R Int : 132 ms QRS Dur : 100 ms QT Int : 472 ms P-R-T Axes : 046 -02 067 degrees QTc Int : 475 ms Normal sinus rhythm Left atrial enlargement Incomplete right bundle branch block Recent Inferior infarct (cited on or before 31-JAN-2020) Recent Anterior infarct (cited on or before 31-JAN-2020) Abnormal ECG When compared with ECG of 01-FEB-2020 20:33, Incomplete right bundle branch block is now Present Otherwise no significant change Confirmed by Bruno Mendiola ([id number] on 02/03/2020 9:53:39 AM Referred By: REFERRED SELF Confirmed By:Bruno Mendiola
--- NOTE | 2020-02-03 09:56 | Electrocardiogram Report ---
Test Reason : Blood Pressure : / mmHG Vent. Rate : 081 BPM Atrial Rate : 081 BPM P-R Int : 132 ms QRS Dur : 096 ms QT Int : 482 ms P-R-T Axes : 056 008 080 degrees QTc Int : 559 ms Sinus rhythm with run of Accelerated Idioventricular rhythm Left atrial enlargement Recent Inferior infarct (cited on or before 31-JAN-2020) Recent Anterior infarct (cited on or before 31-JAN-2020) Prolonged QT Abnormal ECG When compared with ECG of 02-FEB-2020 10:38, Accelerated Idioventricular rhythm now present Otherwise no significant change Confirmed by Bruno Mendiola ([id number]) on 02/03/2020 9:55:50 AM Referred By: REFERRED SELF Confirmed By:Bruno Mendiola
--- NOTE | 2020-02-10 23:44 | Discharge Summary ---
Date of Service February 03, 2020 Admission HPI Per Admitting Provider 79yo female with history of pre-DM, HTN, hyperlipidemia, and GERD who presented with substernal chest pain beginning last night after eating dinner. Pain never radiated. Was associated with nausea on one occasion. Minimal dyspnea. No vomiting. Pain remitted for a time last pm, then started up again prior to bedtime. She took percocet x 1 for the pain and went to bed. She managed to sleep most of the night, then awoke just before 7am with pain in the same substernal location. The pain intensified as the morning went on. She called her PCP's office who advised going to the hospital. Upon arrival to [facility] her EKG showed ST segment elevation in the anterior leads suggestive of LAD infarction. Heart alert was called, and Dr Dailey took her to the slab inspector. This demonstrated a 100% occluded mid-LAD; he deployed 1 MORENA to this lesion. I saw the patient post-cath in the ICU. She was resting comfortably. She stated she had some residual substernal pain - about 4-5/10 - but her pain was a "20" upon presentation. Her only other complaint was that of urinary frequency. Principal Diagnosis STEMI Discharge Exam Constitutional: well developed, well nourished and + obese; no acute distress and no altered mental status Eyes: PERRL (lens implants b/l ) ENMT: external ear and nose normal, oropharynx normal Neck: trachea midline, no thyromegaly Respiratory: + cough Auscultation: + rales (faint b/l bases); no wheezes Cardiovascular: Rate/Rhythm: regular rate and regular rhythm Heart Sounds: normal S1, normal S2 and + murmur (2/6 RUSB - systolic) Vessels: posterior tibial pulses present and dorsalis pedis pulses present; no JVD Extremities: + edema (<1+ b/l ) and + varicosities Gastrointestinal (Abdomen): normal bowel sounds, soft, nontender, no hepatosplenomegaly Inspection/Auscultation: + abdomen distended Musculoskeletal: no cyanosis or clubbing, extremities motor strength 5/5 Skin: no rashes, warm and dry Neurologic: deep tendon reflexes 2+ bilaterally and moves all extremities; no focal motor deficits Psychiatric: A+Ox3, euthymic affect Lymphatic: no cervical lymphadenopathy Discharge Data Allergies Allergy/AdvReac Type Severity Reaction Status Date / Time Penicillins Allergy Intermediate pruritis, Verified 01/31/20 12:09 swelling of extremeties amoxicillin Allergy Mild RASH Verified 01/31/20 12:09 Iodinated Contrast Media Allergy Unknown pt with Verified 01/31/20 12:09 topical iodine allergy iodine Allergy Unknown pruritis, Verified 01/31/20 12:09 contact dermatitis pork derived (porcine) Allergy Unknown unknown Verified 01/31/20 12:09 thimerosal Allergy Unknown unknown Verified 01/31/20 12:09 diazepam AdvReac Unknown HYPERACTIVE Verified 01/31/20 12:09 lisinopril AdvReac Unknown nausea Verified 01/31/20 12:09 meclofenamic acid AdvReac Unknown diarrhea Verified 01/31/20 12:09 naproxen AdvReac Unknown NAUSEA Verified 01/31/20 12:09 mcclomen Allergy Mild GI SYMPTOMS Uncoded 01/31/20 12:09 Flu Virus Vaccine Allergy Unknown unknown Uncoded 01/31/20 12:09 Consultations 01/31/20 12:04 ED Decision to Admit Stat 01/31/20 13:02 Consult Case Management - Discharge Planning Routine Consult Quality Control Assistant Routine Procedures Performed Operation Date: 01/31/20 12:00 Actual Procedures s Cineradiography w/Routine Exam - Navjot Dailey MD p Aspiration/PCI w/MORENA for Stemi - Navjot Dailey MD p Cath, Left with Cors and Vent - Navjot Dailey MD Ordered Studies 01/31/20 11:41 CL Cath Imgs for PACS use only Stat Hospital Course (1) ST elevation (STEMI) myocardial infarction: STEMI 2nd to 100% mid-LAD lesion. s/p heart alert with emergency heart cath by Dr Dailey. Successful deployment of 1 MORENA to LAD lesion. Stable hemodynamically post-cath. Patient is currently chest pain-free. Troponin appears to have peaked. Hemodynamically and electrically stable overnight. LV function preserved on echo No significant access site complications. Continue DAPT with aspirin, ticagrelor for at least 1 year Continue current valsartan, metoprolol Continue high intensity statin OK TO DISCHARGE on toprol XL 50 mg once daily as per discussion with cardio. (2) Prediabetes: Check a1c. Hold metformin. ICU glycemic protocol. (3) Mixed hyperlipidemia: Check lipids in am. Consider TSH in am. Start statin. See above. (4) HTN (hypertension): Poorly controlled. Starting beta nate. Cont ARB. Titrate as needed. (5) Microcytic anemia: iron is low, will discharge on ferritin. Has significant GI symptoms by history/GERD. Maintain on PPI in light of DAP therapy and symptoms. (6) FELICE (obstructive sleep apnea): Uncertain if patient is on CPAP/BIPAP. Will inquire. (7) GERD (gastroesophageal reflux disease): PPI as noted above. (8) DVT prophylaxis: Defer to ICU attending. oN LOVENOS Total Time Total Time Spent Total Time Spent (In Minutes): 32 Total Time Includes: Examination of the Patient, Discharge Planning and Medication Reconciliation Discharge Plan Discharge Items Patient Disposition: Home - Self-Care Reason For Visit: CHEST PAIN, SOB Discharge Diagnosis: NSTEMI Activity: Resume your previous activity Non-emergency contact: Primary Care Provider Call non-emergency contact if: you have any medication questions Follow-up/Referrals: Nicholas Casey MD [Primary Care Provider] - Diet: Heart Healthy Addtl Attending Provider Instructions: Home Care: * Take your medications exactly as directed. Don't skip doses. * Remember that recovery after a heart attack takes time. Plan to rest for at lease 4-8 weeks while you recover. Then return to normal activity when your doctor says it's okay. * Ask your doctor about joining a heart rehabilitation program. * Tell your doctor if you are feeling depressed. Feelings of sadness are common after a heart attack, but it is important that you speak to someone if you are feeling overwhelmed by these feelings. * If you are having chest pain, call 911 for an ambulance. Do NOT drive yourself to the hospital. * Ask your family members to learn CPR. * Learn to take your own blood pressure and pulse. Keep a record of your results. Ask your doctor when you should seek emergency medical attention. He or she will tell you which blood pressure reading is dangerous. Lifestyle Changes: * Maintain a healthy weight. Get help to lose any extra pounds. * Cut back on salt. * Limit canned, dried, packaged, and fast foods. * Don't add salt to your food. * Season foods with herbs instead of salt when you cook. * Break the smoking habit. Enroll in a stop-smoking program to improve your chances of success. * Limit fatty foods. * Ask your doctor about having your lipid levels checked regularly. * Build up your activity according to your doctor's recommendation. * Ask your doctor when it's okay to resume sexual activity. * Tell your doctor about any erectile dysfunction (ED) medication you are taking. Some ED medications are not safe if you take certain heart medications. * Try to manage stress. Follow Up: It is important for you to keep your follow up appointments with your medical provider. Pending Studies at Discharge: No Stand-Alone Forms: [facility], Smoking Cessation Medications and DC Order Prescriptions: New atorvastatin 40 mg Tablet 80 mg PO QAM Qty: 30 RF: 0 ferrous sulfate 325 mg (65 mg iron) Tablet,Delayed Release (Dr/Ec) 325 mg PO BIDM Qty: 60 RF: 0 Brilinta 90 mg Tablet 90 mg PO BID Qty: 60 RF: 0 metoprolol succinate 50 mg tablet extended release 24 hr 50 mg PO PM Qty: 30 RF: 0 valsartan [Diovan] 80 mg Tablet 160 mg PO QAM Qty: 30 RF: 0 nitroglycerin [Nitrostat] 0.4 mg Tablet, Sublingual 0.4 mg sublingual UD PRN (Reason: chest pain) Qty: 10 RF: 0 aspirin 81 mg Tablet,Delayed Release (Dr/Ec) 81 mg PO QAM Qty: 30 RF: 0 Continued pantoprazole 20 mg tablet,delayed release (DR/EC) 20 mg PO Q2D RF: 0 ropinirole 0.25 mg tablet 0.25 mg PO DAILY RF: 0 Changed metformin 500 mg tablet extended release 24 hr 500 mg PO TID Qty: 90 RF: 0 Discontinued valsartan-hydrochlorothiazide 320-25 mg tablet 1 tab PO DAILY RF: 0 Discharge Orders: Discharge Order (Routine); Ordered 02/03/20 Ordered By: Jim Santillan/Other Patient Handouts: Diabetes Type 2 Managing, Diabetes Meal Planning, Foods Heart Healthy Admission Data Admit Date/Time: 01/31/20 13:02 Attending Provider: Jim Shaikh Admit Provider: Navjot Dailey Primary Care Provider: Nicholas Casey Other Providers: Nicholas Pemberton Muqueet Other Interventions: Discharge Summary Assessment (RN) Last Done: 04/12/20 13:36 DC Date/Time DO NOT enter until pt leaves facility: 02/03/20 15:12 Coding Level of Care Code D/C Day Management >[address] elevation (STEMI) myocardial infarction I21.02 Involved coronary artery: LAD coronary artery Prediabetes R73.03 Mixed hyperlipidemia E78.2 HTN (hypertension) I10 Hypertension type: essential hypertension Microcytic anemia D50.9 FELICE (obstructive sleep apnea) G47.33 GERD (gastroesophageal reflux disease) K21.9 Esophagitis presence: esophagitis presence not specified DVT prophylaxis Z29.9 Time Spent (min) 32
== END 2020-02-03 15:12 | disposition home or self-care (01) | DRG 247 ==
LOC: ED 11:13 → ASU 12:00 → SUATTDRO 13:02 → 1E 13:02 → 2S 02-03 06:13

== ENCOUNTER 2022-05-26 17:07 | Observation (INO) ==
[2022-05-26] MEDS ORDERED: MoRPHine SULFATE 4 MG/ML 1 ML CARP\\VIAL IV STA (17:18)
[2022-05-26] MEDS ORDERED: NITROGLYCERIN SL 0.4 MG/TAB TAB SL PRN (17:18)
--- NOTE | 2022-05-26 17:36 | Emergency Department Note ---
Impression & Plan Acute exacerbation of CHF (congestive heart failure), Atypical chest pain, Elevated brain natriuretic peptide (BNP) level ED Provider Note NAME: RONEN MORSE AGE: 81 SEX: F : 1940 ARRIVES VIA: Ambulance INFORMANT: Patient, ED PROVIDER(S): Bayron Sanchez MD Chief Complaint: Chest pain HPI: Patient presents due to concern for chest pain that is occurred twice today. The patient states that she had a bout of centralized chest pain that she described as a sledgehammer type discomfort with associated shoulder pain. Patient did take some nitro and this seemed to resolve thereafter. The patient did have a second bout of chest pain that began around 4 PM. The patient did not have improvement in symptoms and was brought in by EMS. The patient did receive nitro sprays and 4 baby aspirin. The patient did have improvement from 10 out of 10 pain to 7 out of 10. Patient denies any alcohol or tobacco use. The patient does have some chronic lower extremity edema but did not take her torsemide today. The patient denies any associated nausea vomiting or diaphoresis. The patient is unsure as whether or not she had exertional symptoms. Patient denies any prior history of DVT or PE. The patient does take aspirin but no Plavix. The patient does follow with Dr. Dailey for history of CAD and did have a stent placed in the year 2019. Patient states that she only had chest pain associated with her stent related episode in the past. Patient denies any cough or fever. The patient was noted to have a borderline temp of 37.6 upon arrival. ROS: See HPI for pertinent positives and negatives. A total of 10 systems were reviewed and otherwise negative. Past medical history: See below Surgical history: See below Social history: See below Physical Exam: GENERAL: NAD, wearing a mask, non-toxic. Wearing glasses EYE EXAM: Normal conjunctiva. PERRL, no anisocoria and EOM's grossly intact w/o pain. NECK: Supple, no nuchal rigidity, no adenopathy, non-tender. No signs of meningismus. FROM of the neck with good chin to chest and neck extension. No stridor. LUNGS: Bibasilar crackles. Normal chest wall mechanics. HEART: NSR, systolic ejection murmur noted. ABDOMEN: Abdomen soft, non-tender, normo-active bowel sounds, no masses, no rebound or guarding. BACK: No CVA TTP. SKIN: No rashes and no bruising. UPPER EXTREMITIES: Upper extremities are grossly normal. LOWER EXTREMITIES: Grossly normal, 1+ pretibial edema without calf pain. NEURO EXAM: A&O x3, cranial nerves II-XII grossly intact, normal speech, moves all 4 extremities. Differential diagnoses: Cardiac ischemia, aortic dissection, pulmonary embolism, pneumothorax, pneumonia, pericarditis, myocarditis, esophageal rupture, GERD, cholecystitis, pancreatitis, musculoskeletal, as well as other pathologies. Course: Patient was seen and evaluated the bedside. Full history physical exam was performed. EKG interpreted by me Normal sinus rhythm, rate of 87, normal intervals, left axis deviation, mild elevation in V2 but not in V3. This appears grossly unchanged from comparison EKG completed May 22, 2021. Imaging Studies: See Below Cardiac monitoring: An order was placed for continuous cardiac monitoring. The monitor shows a rate of 82 with sinus rhythm. MDM: Patient presented due to concern for chest pain. Blood work is obtained along with an EKG troponin chest x-ray BNP and was given small dose of morphine 2 mg IV as well as sublingual nitro. Patient blood work showed a normal white count with mild anemia hemoglobin 11. Platelet count is normal. Kidney function normal with mild hyponatremia 135. Patient does have elevated BNP but troponin is not elevated. COVID-negative. Chest x-ray read as no acute cardiopulmonary findings. Patient did have some mild bibasilar crackles and does have pretibial edema did not take her torsemide today. The patient was ordered 20 of Lasix. The patient did have borderline hypoxia with an O2 sat at 90%. The patient was well maintained on 2 L into the mid 90s. Upon reassessment the patient was feeling improved and current pain was made about 3 out of 10. Patient does look comfortable at the bedside. No obvious significant changes on EKG to warrant STEMI activation at this time. The patient does not had significant changes in weight but the patient does have a heart murmur which the patient knows about. The patient may have an element of valvular dysfunction. I did speak the on- call hospitalist Dr. Lainez and the patient was admitted to the medicine service. Patient temp 37 6. The patient does not complain of any infectious symptoms. Will defer any additional treatment or antibiotics to the inpatient team at this time. Past Med/Surg History Medical History CAD (coronary artery disease) S/p MORENA 01/31/20 to mid LAD Claustrophobia GERD (gastroesophageal reflux disease) [place] (hard of hearing) VERY-NO AIDS HTN (hypertension) Kidney stones Mixed hyperlipidemia Myocardial infarction 01/2020 FELICE (obstructive sleep apnea) CPAP Osteoarthritis Prediabetes Would consider patient diabetic= Hgb A1C 7.7 on 02/01/20; pt also on Januvia and Metformin Scoliosis Spinal stenosis Surgical History History of bladder suspension procedure History of cardiac cath 01/2020 - [facility] - 1 stent - follows w/ Dr. Dailey History of colonoscopy History of esophagogastroduodenoscopy (EGD) History of total shoulder replacement b/l S/P carpal tunnel release BL S/P cataract extraction b/l S/P foot surgery Left x 2, Right x 3 S/P repair of ventral hernia laparascopic x 2 S/P sinus surgery S/P CARRI (total abdominal hysterectomy) S/P tonsillectomy Slow to wake up after anesthesia Total knee replacement status right Family History Father , in 90s from AAA AAA (abdominal aortic aneurysm) Stroke Family history of diabetes mellitus Mother , in her 70s Lung cancer Hypertension Aunt Family history of diabetes mellitus Denies family history of Coronary heart disease Social History Smoking Status: Never smoker Second Hand Exposure: No; Hx Alcohol Use: Yes Alcohol type: wine Hx Substance Use: No Preferred Language: Moroccan Communication Ability: Effective Hearing Ability: Hard of Hearing Communications Program Manager Required: No Beliefs That Will Affect Care: None marital status: marital status details: 2 children Current Living Situation: Spouse Current Living Situation Comment: house current occupational status: retired 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[employer]; [employer]; 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; 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 Other Information That Helps Us Care for You: No Feels Safe at Home: Yes Safety Concerns: Feels Safe At This Time Physical Activity Frequency: Does not Exercise Assistive Devices: Cane, CPAP and Glasses Allergies Allergies Allergy/AdvReac Type Severity Reaction Status Date / Time Penicillins Allergy Intermediate pruritis, Verified 05/26/22 19:30 swelling of extremeties amoxicillin Allergy Mild Rash Verified 05/26/22 19:30 Iodinated Contrast Media Allergy Unknown History Verified 05/26/22 19:30 topical iodine allergy iodine Allergy Unknown pruritis, Verified 05/26/22 19:30 contact dermatitis pork derived (porcine) Allergy Unknown unknown Verified 05/26/22 19:30 thimerosal Allergy Unknown unknown Verified 05/26/22 19:30 atorvastatin AdvReac Intermediate Upset Verified 05/26/22 19:30 stomach, diarrhea diazepam AdvReac Unknown Nausea and Verified 05/26/22 19:30 hyperactive lisinopril AdvReac Unknown Nausea Verified 05/26/22 19:30 meclofenamic acid AdvReac Unknown Diarrhea Verified 05/26/22 19:30 naproxen AdvReac Unknown NAUSEA Verified 05/26/22 19:30 mcclomen Allergy Mild GI SYMPTOMS Uncoded 05/26/22 19:30 Flu Virus Vaccine Allergy Unknown unknown Uncoded 05/26/22 19:30 Naproxen AdvReac Unknown Gastrointestinal Uncoded 05/26/22 19:30 Upset Home Meds Home Medications Medication Instructions Recorded Confirmed cholecalciferol (vitamin D3) 50 2,000 units PO QAM 04/29/20 05/26/22 mcg (2,000 unit) capsule telmisartan 20 mg tablet 20 mg PO QAM 04/29/20 05/26/22 ropinirole 0.5 mg tablet 0.5 mg PO HS 07/22/20 05/26/22 sitagliptin 100 mg tablet (Januvia) 100 mg PO QAM 12/01/20 05/26/22 allopurinol 100 mg tablet 200 mg PO QAM 09/03/21 05/26/22 ferrous sulfate 325 mg (65 mg 325 mg PO DAILY 09/03/21 05/26/22 iron) tablet,delayed release metformin 500 mg tablet,extended 500 mg PO QAM 09/03/21 05/26/22 release 24 hr Saccharomyces boulardii [Daily 1 tab PO DAILY 04/15/22 05/26/22 Probiotic (S. boulardii)] torsemide 5 mg tablet 2.5 mg PO DAILY 04/15/22 05/26/22 metformin 500 mg tablet,extended 1,000 mg PO QPM 05/26/22 05/26/22 release 24 hr rosuvastatin 10 mg tablet 10 mg PO HS 05/26/22 05/26/22 Previous Rx's Medication Instructions Recorded aspirin 81 mg tablet,delayed 81 mg PO QAM #30 tabs 02/02/20 release oxycodone-acetaminophen 5 mg-325 1 tab PO Q6H PRN pain #8 tabs 05/23/21 mg tablet (Percocet) nitroglycerin 0.4 mg sublingual 0.4 mg sublingual DIRECTED PRN 10/07/21 tablet (Nitrostat) Chest Pain #60 tabs metoprolol succinate 50 mg 50 mg PO HS #90 tabs 02/24/22 tablet,extended release 24 hr isosorbide mononitrate 60 mg 60 mg PO DAILY #30 tabs 04/16/22 tablet,extended release 24 hr Results & Data (ED) Vital Signs Vital Signs - 24 hr 05/26/22 16:58 05/26/22 17:19 05/26/22 17:49 Temperature 37.6 C H Temperature Source Oral Pulse Rate 82 77 Pulse Rate from SpO2 Sensor 75 Respiratory Rate 20 26 H Blood Pressure 163/72 H Blood Pressure Mean 102 Pulse Oximetry 90 91 96 Oxygen Delivery Method Room Air Room Air Oxygen Flow Rate Sepsis Recent Fever Within 48 Hours No Sepsis New/Unexplained Change in Mental Status No Sepsis Action Taken by Nursing No Action Required Oxygen Flow Rate - Titration Pulse Oximetry Post Tiitration 05/26/22 17:50 05/26/22 19:05 05/26/22 18:00 Temperature Temperature Source Pulse Rate 74 69 Pulse Rate from SpO2 Sensor 72 72 Respiratory Rate 28 H 29 H Blood Pressure 146/85 H Blood Pressure Mean 105 Pulse Oximetry 97 85 L 96 Oxygen Delivery Method Room Air Oxygen Flow Rate 0 Sepsis Recent Fever Within 48 Hours Sepsis New/Unexplained Change in Mental Status Sepsis Action Taken by Nursing Oxygen Flow Rate - Titration 2 Pulse Oximetry Post Tiitration 97 05/26/22 18:30 05/26/22 19:01 05/26/22 19:30 Temperature Temperature Source Pulse Rate 69 75 72 Pulse Rate from SpO2 Sensor 71 77 74 Respiratory Rate 22 18 21 Blood Pressure 161/69 H 170/74 H 157/134 H Blood Pressure Mean 99 106 141 Pulse Oximetry 97 97 97 Oxygen Delivery Method Oxygen Flow Rate 2 2 Sepsis Recent Fever Within 48 Hours Sepsis New/Unexplained Change in Mental Status Sepsis Action Taken by Nursing Oxygen Flow Rate - Titration Pulse Oximetry Post Tiitration 05/26/22 19:41 Temperature Temperature Source Pulse Rate 75 Pulse Rate from SpO2 Sensor 77 Respiratory Rate 26 H Blood Pressure 180/67 H Blood Pressure Mean 104 Pulse Oximetry 98 Oxygen Delivery Method Oxygen Flow Rate 2 Sepsis Recent Fever Within 48 Hours Sepsis New/Unexplained Change in Mental Status Sepsis Action Taken by Nursing Oxygen Flow Rate - Titration Pulse Oximetry Post Tiitration Home Medications Current Medication List: was personally reviewed by me Laboratory Data Attestation: I reviewed the patient's lab results. Result diagrams: 05/27/22 04:07 05/27/22 04:07 Lab Results 05/26/22 05/26/22 05/26/22 Range/Units 17:30 17:30 17:30 WBC 7.85 (4.8-10.8) K/ul RBC 4.09 (3.93-5.22) M/uL Hgb 11.0 L (12.0-16.0) g/dl Hct 34.9 (34.1-44.9) % MCV 85.3 (80.0-100.0) fL MCH 26.9 (25.0-34.0) pg MCHC 31.5 L (32.0-36.0) g/dL RDW Std Deviation 49.1 H (36.4-46.3) fL RDW Coeff of Angelina 15.8 H (11.5-14.5) % Plt Count 237 (130-400) K/uL MPV 10.0 (9.4-12.3) fL Immature Gran % (Auto) 0.4 % Neut % (Auto) 75.9 % Lymph % (Auto) 11.1 % [place] % (Auto) 11.7 % Eos % (Auto) 0.8 % Baso % (Auto) 0.1 % Neut # (Auto) 5.96 (1.4-6.5) K/uL Lymph # (Auto) 0.87 L (1.2-3.4) K/uL [place] # (Auto) 0.92 H (0.24-0.82) K/uL Eos # (Auto) 0.06 (0-0.50) K/uL Baso # (Auto) 0.01 (0-0.2) K/uL Immature Gran # (Auto) 0.03 H (0.00-0.02) K/uL PT 11.4 (9.0-12.0) Seconds INR 1.1 (0.9-1.1) APTT 29.6 (21.0-31.0) Seconds PTT Ratio 1.1 Sodium 135 L (136-145) mmol/L Potassium 4.0 (3.5-5.1) mmol/L Chloride 100 (98-107) mmol/L Carbon Dioxide 26 (21-32) mmol/L Anion Gap 9 (3-11) BUN 14 (6-23) mg/dl Creatinine 0.79 (0.6-1.2) mg/dl Est Cr Clr Drug Dosing Not Reportable Est GFR ( Amer) 80.2 ml/min Est GFR (Non-Af Amer) 69.2 ml/min BUN/Creatinine Ratio 17.7 (10-20) Glucose 119 H (70-99(Fasting)) mg/dl Calcium 9.7 (8.5-10.1) mg/dl Total Bilirubin 1.3 H (0.2-1.0) mg/dl AST 13 (13-39) U/L ALT 10 (7-52) U/L Alkaline Phosphatase 66 (34-104) U/L Troponin I High Sens 9.8 (0-14) pg/ml B-Natriuretic Peptide (0-100) pg/ml Total Protein 6.8 (6.0-8.3) gm/dl Albumin 3.8 (3.4-5.0) gm/dl Globulin 3.0 (2.5-4.0) gm/dl Albumin/Globulin Ratio 1.3 (0.9-2) Lipase 10 L (11-82) U/L SARS-CoV-2, RNA, NAAT (NEGATIVE) 05/26/22 05/26/22 Range/Units 17:30 17:50 WBC (4.8-10.8) K/ul RBC (3.93-5.22) M/uL Hgb (12.0-16.0) g/dl Hct (34.1-44.9) % MCV (80.0-100.0) fL MCH (25.0-34.0) pg MCHC (32.0-36.0) g/dL RDW Std Deviation (36.4-46.3) fL RDW Coeff of Angelina (11.5-14.5) % Plt Count (130-400) K/uL MPV (9.4-12.3) fL Immature Gran % (Auto) % Neut % (Auto) % Lymph % (Auto) % [place] % (Auto) % Eos % (Auto) % Baso % (Auto) % Neut # (Auto) (1.4-6.5) K/uL Lymph # (Auto) (1.2-3.4) K/uL [place] # (Auto) (0.24-0.82) K/uL Eos # (Auto) (0-0.50) K/uL Baso # (Auto) (0-0.2) K/uL Immature Gran # (Auto) (0.00-0.02) K/uL PT (9.0-12.0) Seconds INR (0.9-1.1) APTT (21.0-31.0) Seconds PTT Ratio Sodium (136-145) mmol/L Potassium (3.5-5.1) mmol/L Chloride (98-107) mmol/L Carbon Dioxide (21-32) mmol/L Anion Gap (3-11) BUN (6-23) mg/dl Creatinine (0.6-1.2) mg/dl Est Cr Clr Drug Dosing Est GFR ( Amer) ml/min Est GFR (Non-Af Amer) ml/min BUN/Creatinine Ratio (10-20) Glucose (70-99(Fasting)) mg/dl Calcium (8.5-10.1) mg/dl Total Bilirubin (0.2-1.0) mg/dl AST (13-39) U/L ALT (7-52) U/L Alkaline Phosphatase (34-104) U/L Troponin I High Sens (0-14) pg/ml B-Natriuretic Peptide 223 H (0-100) pg/ml Total Protein (6.0-8.3) gm/dl Albumin (3.4-5.0) gm/dl Globulin (2.5-4.0) gm/dl Albumin/Globulin Ratio (0.9-2) Lipase (11-82) U/L SARS-CoV-2, RNA, NAAT NEGATIVE (NEGATIVE) Administered Medications Acetaminophen (Acetaminophen 325 Mg Tab) 650 mg PO Q4H PRN PRN Reason: Pain or Fever Stop: 06/25/22 22:29 Last Admin: 05/26/22 22:50 Dose: 650 mg Documented By: MESHA Allopurinol (Allopurinol 100 Mg Tab) 200 mg PO QAM [facility] Stop: 06/26/22 08:59 Last Admin: 05/27/22 09:22 Dose: 200 mg Documented By: RICHARD Aspirin (Aspirin 81 Mg Ectab) 81 mg PO [facility] Stop: 06/26/22 08:59 Last Admin: 05/27/22 09:22 Dose: 81 mg Documented By: RICHARD Enoxaparin Sodium (Enoxaparin Inj 40 Mg/0.4 Ml Syr) 40 mg SQ HS [facility] Stop: 06/25/22 22:59 Last Admin: 05/26/22 23:26 Dose: 40 mg Documented By: MESHA Ferrous Sulfate (Ferrous Sulfate 325 Mg Tab) 325 mg PO DAILY [facility] Stop: 06/26/22 08:59 Last Admin: 05/27/22 09:22 Dose: 325 mg Documented By: RICHARD Insulin Aspart (Insulin Aspart Per Unit) 0 units SC Q6 [facility] Stop: 06/25/22 22:59 Last Admin: 05/27/22 06:19 Dose: Not Given Documented By: Admin: 05/27/22 02:09 Dose: Not Given Documented By: KARL Insulin Glargine (Lantus Per Unit Charge) 10 units SQ BID [facility] Stop: 06/25/22 22:59 Last Admin: 05/27/22 09:28 Dose: 10 units Documented By: RICHARD Co-signed By: JARON Admin: 05/27/22 02:09 Dose: Not Given Documented By: KARL Isosorbide Mononitrate (Isosorbide [place] Extended Rel 60 Mg Tabcr) 60 mg PO DAILY [facility] Stop: 06/26/22 08:59 Last Admin: 05/27/22 09:20 Dose: 60 mg Documented By: RICHARD Nitroglycerin (Nitroglycerin Sl 0.4 Mg/Tab Tab) 0.4 mg SL UD PRN PRN Reason: Chest Pain Stop: 06/25/22 17:17 Last Admin: 05/26/22 17:37 Dose: 0.4 mg Documented By: AB Oxycodone/Acetaminophen (Oxycodone/Acetaminophen 5mg/325mg Tab) 1 tab PO Q6H PRN PRN Reason: pain Stop: 06/09/22 22:29 Last Admin: 05/27/22 09:28 Dose: 1 tab Documented By: SMMaine Admin: 05/27/22 02:19 Dose: 1 tab Documented By: KARL Ropinirole HCl (Ropinirole Hcl 0.25 Mg Tablet) 0.5 mg PO [facility] Stop: 06/25/22 22:29 Last Admin: 05/27/22 00:26 Dose: 0.5 mg Documented By: MESHA Rosuvastatin Calcium (Rosuvastatin Calcium 10 Mg Tab) 10 mg PO HS [facility] Stop: 06/25/22 22:29 Last Admin: 05/27/22 00:26 Dose: 10 mg Documented By: MESHA Saccharomyces Boulardii (Saccharomyces Boulardii 250 Mg Cap) 250 mg PO DAILY [facility] Stop: 06/26/22 08:59 Last Admin: 05/27/22 09:22 Dose: 250 mg Documented By: RICHARD Telmisartan (Telmisartan 20 Mg Tab) [facility] [place]: 06/26/22 08:59 Last Admin: 05/27/22 09:22 Dose: 20 mg Documented By: RICHARD Vitamin D (Cholecalciferol 1,000 Units 25 Mcg Tab) 2,000 units PO [facility] Stop: 06/26/22 08:59 Last Admin: 05/27/22 09:20 Dose: 2,000 units Documented By: RICHARD Discontinued Medications Furosemide (Furosemide 40 Mg/4 Ml Vial) 40 mg IV ONE ONE Stop: 05/26/22 18:25 Last Admin: 05/26/22 18:52 Dose: Not Given Documented By: MESHA Furosemide (Furosemide Inj 20 Mg/2 Ml Vial) 20 mg IV ONE ONE Stop: 05/26/22 18:48 Last Admin: 05/26/22 18:51 Dose: 20 mg Documented By: Morphine Sulfate (Morphine Sulfate 4 Mg/Ml 1 Ml Carp\Vial) 2 mg IV NOW STA Stop: 05/26/22 17:19 Last Admin: 05/26/22 17:37 Dose: 2 mg Documented By: Imaging Data Radiologist's Impression: Chest X-Ray 05/26/22 17:19 XR chest 1V portable CLINICAL HISTORY: Apical chest pain. COMPARISON STUDY: Chest radiograph January 19, 2021. CT of the chest March 10, 2021. FINDINGS: Bilateral shoulder arthroplasties are incidentally noted. There is no pneumothorax or pleural effusion. Cardiomegaly is unchanged. No evidence for pulmonary edema. No consolidation to suggest pneumonia. IMPRESSION: No acute cardiopulmonary findings. No change in appearance of the chest. ACT 112: Negative or not required by law. Electronically signed by: Eulogio Mooney M.D. 05/26/2022 6:11 PM Discharge Plan Visit Data Chief Complaint: Chest Pain Stated Complaint: chest pain ED Provider: Bayron Sanchez Discharge Problem: Acute exacerbation of CHF (congestive heart failure), Atypical chest pain, Elevated brain natriuretic peptide (BNP) level Patient Disposition: Admitted As Inpatient Discharge Instructions Interventions: ED Discharge Assessment Last Done: 05/26/22 22:35
[2022-05-26 17:49] LABS: Basophils # (auto) 0.01 K/uL (0-0.2); Basophils % (auto) 0.1 %; Eosinophils # (auto) 0.06 K/uL (0-0.50); Eosinophils % (auto) 0.8 %; Hematocrit (blood only) 34.9 % (34.1-44.9); Immature Granulocytes # (auto) 0.03 K/uL (0.00-0.02); Immature Granulocytes % (auto) 0.4 %; Lymphocytes # (auto) 0.87 K/uL (1.2-3.4); Lymphocytes % (auto) 11.1 %; Mean Corpuscular Hemoglobin 26.9 pg (25.0-34.0); Mean Corpuscular Hgb Conc 31.5 g/dL (32.0-36.0); Mean Corpuscular Volume 85.3 fL (80.0-100.0); Monocytes # (auto) 0.92 K/uL (0.24-0.82); Monocytes % (auto) 11.7 %; Neutrophils # (auto) 5.96 K/uL (1.4-6.5); Neutrophils % (auto) 75.9 %; Platelet Count 237 K/uL (130-400); RDW Coefficient of Variation 15.8 % (11.5-14.5); RDW Standard Deviation 49.1 fL (36.4-46.3); Red Blood Count 4.09 M/uL (3.93-5.22); White Blood Count 7.85 K/ul (4.8-10.8)
[2022-05-26 18:04] LABS: INR 1.1 (0.9-1.1); Partial Thromboplastin Ratio 1.1; Partial Thromboplastin Time 29.6 Seconds (21.0-31.0); Prothrombin Time 11.4 Seconds (9.0-12.0)
--- NOTE | 2022-05-26 18:13 | XRay Report ---
XR chest 1V portable CLINICAL HISTORY: Apical chest pain. COMPARISON STUDY: Chest radiograph January 19, 2021. CT of the chest March 10, 2021. FINDINGS: Bilateral shoulder arthroplasties are incidentally noted. There is no pneumothorax or pleur al effusion. Cardiomegaly is unchanged. No evidence for pulmonary edema. No consolidation to suggest pneumonia. IMPRESSION: No acute cardiopulmonary findings. No change in appearance of the chest. ACT 112: Negative or not required by law. Electronically signed by: Eulogio Mooney M.D. 05/26/2022 6:11 PM
[2022-05-26 18:20] LABS: Alanine Aminotransferase 10 U/L (7-52); Albumin Globulin Ratio 1.3 (0.9-2); Albumin Level 3.8 gm/dl (3.4-5.0); Alkaline Phosphatase 66 U/L (34-104); Anion Gap 9 (3-11); Aspartate Aminotransferase 13 U/L (13-39); BUN Creatinine Ratio 17.7 (10-20); Bilirubin,Total 1.3 mg/dl (0.2-1.0); Blood Urea Nitrogen 14 mg/dl (6-23); Calcium 9.7 mg/dl (8.5-10.1); Carbon Dioxide 26 mmol/L (21-32); Chloride 100 mmol/L (98-107); Est GFR (African American) 80.2 ml/min; Est GFR (Non-African American) 69.2 ml/min; Glucose 119 mg/dl (70-99(Fasting)); Lipase 10 U/L (11-82); Sodium 135 mmol/L (136-145); Total Protein 6.8 gm/dl (6.0-8.3)
[2022-05-26 18:24] LABS: Troponin I High Sensitivity 9.8 pg/ml (0-14)
[2022-05-26] MEDS ORDERED: FUROSEMIDE 40 MG/4 ML VIAL IV ONE (18:24)
[2022-05-26] MEDS ORDERED: FUROSEMIDE INJ 20 MG/2 ML VIAL IV ONE (18:47)
--- NOTE | 2022-05-26 19:00 | History & Physical Report ---
Date of Service May 26, 2022 Assessment & Plan (1) Atypical chest pain: Plan: Nan is an 81-year-old female who presented for evaluation of 2 episodes of substernal type chest pain with a past medical history of STEMI/PCI. On ER evaluation was with bibasilar crackles potentially concerning for acute on chronic fluid overload and was recommended for admission for observation/cardiac rule out and diuresis. Atypical chest pain -CAD, hx STEMI PCI with MORENA to LAD -TTE 01/2022: EF 50-55%, grade 2 diastolic dysfunction -Presenting with 2 episodes of chest pain with the second not resolving with nitroglycerin -EKG not significant for any ST changes -Troponins negative as of yet. Trend troponins overnight every 8 hour x3 -EKG with chest pain as needed Continue aspirin daily Continue isosorbide Acute on chronic CHF exacerbation with hypoxia -On admission with an oxygen saturation of 85% on room air and sequentially put on 2 L nasal cannula which improved saturations to greater than 90% -Received 60 mg of Lasix in emergency department -Home regimen consists of 2.5 mg of torsemide daily, will hold while receiving Lasix in hospital -We will hold additional diuresis for now not to induce kidney injury -Latest echo (01/2022): EF 50%, apical akinesis, mid septal hypokinesis, DD 2, mild to moderate (PV 2.8, MG 18, SIVA 1.3, DI 0.47), mild MR, PASP 45-50, normal IVC -Wean oxygen as tolerated Elevated total bilirubin -Positive Anne sign exam with chest pain -Ordered right upper quadrant ultrasound to be performed morning to rule out cholecystitis -Repeat CMP in the morning Anemia -Chronic issue without any identifiable work-up recently -Ordered iron studies and vitamin B12 and folate -Continue iron supplementation -Daily CBC Type 2 diabetes mellitus -Patient on metformin and Januvia at home, hold while in hospital -A1c in the morning -Bolus insulin with sliding scale Hypertension -Continue telmisartan, metoprolol Hyperlipidemia -Continue rosuvastatin Obstructive sleep apnea -Use CPAP at night while in hospital Disposition: Admit to [facility] with telemetry Diet: Carb consistent and low-sodium, n.p.o. after midnight DVT prophylaxis: Lovenox CODE STATUS: Full code (2) Elevated brain natriuretic peptide (BNP) level: (3) CAD (coronary artery disease): (4) GERD (gastroesophageal reflux disease): (5) Type 2 diabetes mellitus: (6) HTN (hypertension): (7) FELICE (obstructive sleep apnea): (8) Mixed hyperlipidemia: (9) Microcytic anemia: Plan Patient seen and examined, chart reviewed, case discussed with Deepak Ovalle, and I agree with the assessment and plan as above except as otherwise noted Nan is a 81-year-old female with past medical history of CAD, GERD, hypertension, FELICE, and ND who Chest pain central with radiation to shoulder. Nitro + ASA and resolved pain. Had episode this morning which improved with nitro. No dyspnea, + new lower extremity edema. Mild crackles at the bases on clinical exam. LVEF 50%, grade II diastolic dysfunction. Endorses chronic intermittent neck pain for which she sees a chiropracter which is present, but seperate and different from her chest pain that brought her in and which was 10/10, 3/10 on ER re-eval, and 0/10 by time of hospitalist assessment. Pt notes heavy, pressurelike pain under her sternum. Trace SoB coming in which improved by time of assessment. Did not take torsemide today. Diminished appetite, only eating 50% of meals. General: A&Ox3. NAD. Cooperative. HEENT: Atraumatic, normocephalic. Vision/hearing grossly intact. Pulm: CTAB A&P. -wheezes, -rales, -rhonchi. Trace bibasilar crackles which clear on inspiration. Symmetrical chest rise. No increase in work of breathing. No respiratory distress. Cardiac: RRR, +sm. Radial pulses intact and symmetrical. Abdominal: RUQ TTP, halts inspiration on deep palpation consistent with murphys. BS present. Extremities: Warm, dry. 1+ bilat LE edema. Labs and images reviewed Chest pain evaluation, suspected acute on chronic CHF exacerbation - CXR: No acute cardiopulmonary findings. No change in appearance of the chest - 96% on 2L in room. 85% on RA at admit. - +basilar crackles on PE, improving and clear with inspiration on exam - CAD, hx STEMI PCI with MORENA to LAD -TTE 01/2021: EF 50-55%, grade 2 diastolic dysfunction Lexiscan 01/2022: Apical/distal inferior ND with minimal yessenia-infarct ischemia, apical/distal inferior wall motion abnormality with EF 50% Clinically with crackles on admission, received Lasix Troponin negative on admission, 2-hour repeat pending. Trended overnight Torsemide held while on IV diuretic creatinine normal on admission BNP 223 Continue aspirin daily Continue isosorbide Elevated Tbili - Tbili elevated, new. GB US pending. No nausea/vomiting/mahendra color stools. Poor appetite. CMP trended +Casey sign on exam Type 2 diabetes mellitus Hold home antiglycemic's, basal bolus as noted Hypertension Mildly elevated on admission, continue metoprolol, telmisartan as noted Anemia Chronic, baseline around 11. Last iron levels 2 years ago. Iron panel/b12/folate pending Sleep disordered breathing -Continue home ASV device available, or CPAP nightly as needed if unavailable Asymptomatic obstructive lung disease No inhalers required [employer], asymptomatic at last pulmonary follow-up. Follow clinically at this time, albuterol as needed for wheezing. History of Present Illness Chief Complaint: chest pain Primary Care Provider: Nicholas Casey MD Patient is an 81-year-old female with past medical history of CAD, acute ND in January 2020, GERD, prediabetes, hyperlipidemia, hypertension, obstructive sleep apnea, and pulmonary hypertension presenting to the emergency department for the chief complaint of chest pain. Patient reports that this morning she had chest pain at around 930 that was a 10 out of 10 and felt like it was more of a pressure than a pain. She states that she took nitroglycerin and reports soon after it did improve her pain. All was well until about 4:30 in the afternoon when the pain returned albeit not as intense and again patient had taken nitroglycerin, however, at this time it did not improve her pain. Because of this, patient called an ambulance and was brought to the emergency room. She states that the pain was midline with some radiation to the right neck. Reports to me that she did not have much to eat today and the chest pain arose before having any food today. Patient denies fever, chills, headache, nausea, vomiting, or weight gain. For the most part she did not have any shortness of breath, however, she did note feeling short of breath in the ambulance ride and was given oxygen at that time patient arrived. Of note patient did take all of her medications today except for torsemide as she was not sure if she was going to be going to the hospital or not and she would maintain control of her bladder. Cardiac history: -Cardiac history began 01/2020 when presented to [facility] with more than 12 hours of stuttering chest pain and EKG showed anterior ST elevations with frequent PVCs. Found to have a mid LAD occlusion which was treated with a single drug-eluting stent. Procedure uncomplicated. -Presented to [facility] ED 01/19/21 for shortness of breath and chest tightness. Troponin neg x1 and EKG without acute changes. ProBNP elevated at 2006 and on exam was felt to be volume overloaded. Chest xray with chronic interstitial changes. Was given a dose of IV Lasix in the ED and discharged home on Lasix 20 mg daily. -Seen 01/2022 with worsening chest pressure reminiscent of prior ND. Underwent Lexiscan SPECT which was negative for significant ischemia. Echo unchanged, moderate moderate . Latest echo (01/2022): EF 50%, apical akinesis, mid septal hypokinesis, DD 2, mild to moderate (PV 2.8, MG 18, SIVA 1.3, DI 0.47), mild MR, PASP 45-50, normal IVC ED course: Patient presented due to concern for chest pain for which blood work, EKG, troponin, chest x-ray, BMP were ordered. Significant labs include hemoglobin of 11, BNP of 223, T bili of 1.3. Troponin negative. Chest x-ray shows no acute cardiopulmonary findings. EKG showing no significant ST elevations. Patient was given 60 mg of Lasix and 2 mg of morphine which reportedly improved her symptoms. Allergies Allergy/AdvReac Type Severity Reaction Status Date / Time Penicillins Allergy Intermediate pruritis, Verified 05/26/22 19:30 swelling of extremeties amoxicillin Allergy Mild Rash Verified 05/26/22 19:30 Iodinated Contrast Media Allergy Unknown History Verified 05/26/22 19:30 topical iodine allergy iodine Allergy Unknown pruritis, Verified 05/26/22 19:30 contact dermatitis pork derived (porcine) Allergy Unknown unknown Verified 05/26/22 19:30 thimerosal Allergy Unknown unknown Verified 05/26/22 19:30 atorvastatin AdvReac Intermediate Upset Verified 05/26/22 19:30 stomach, diarrhea diazepam AdvReac Unknown Nausea and Verified 05/26/22 19:30 hyperactive lisinopril AdvReac Unknown Nausea Verified 05/26/22 19:30 meclofenamic acid AdvReac Unknown Diarrhea Verified 05/26/22 19:30 naproxen AdvReac Unknown NAUSEA Verified 05/26/22 19:30 mcclomen Allergy Mild GI SYMPTOMS Uncoded 05/26/22 19:30 Flu Virus Vaccine Allergy Unknown unknown Uncoded 05/26/22 19:30 Naproxen AdvReac Unknown Gastrointestinal Uncoded 05/26/22 19:30 Upset Home Medications Medication Instructions Recorded Confirmed Type aspirin 81 mg tablet,delayed 81 mg PO QAM #30 tabs 02/02/20 05/26/22 Rx release cholecalciferol (vitamin D3) 50 2,000 units PO QAM 04/29/20 05/26/22 History mcg (2,000 unit) capsule telmisartan 20 mg tablet 20 mg PO QAM 04/29/20 05/26/22 History ropinirole 0.5 mg tablet 0.5 mg PO HS 07/22/20 05/26/22 History sitagliptin 100 mg tablet (Januvia) 100 mg PO QAM 12/01/20 05/26/22 History oxycodone-acetaminophen 5 mg-325 1 tab PO Q6H PRN pain #8 tabs 05/23/21 05/26/22 Rx mg tablet (Percocet) allopurinol 100 mg tablet 200 mg PO QAM 09/03/21 05/26/22 History ferrous sulfate 325 mg (65 mg 325 mg PO DAILY 09/03/21 05/26/22 History iron) tablet,delayed release metformin 500 mg tablet,extended 500 mg PO QAM 09/03/21 05/26/22 History release 24 hr nitroglycerin 0.4 mg sublingual 0.4 mg sublingual DIRECTED PRN 10/07/21 05/26/22 Rx tablet (Nitrostat) Chest Pain #60 tabs metoprolol succinate 50 mg 50 mg PO HS #90 tabs 02/24/22 05/26/22 Rx tablet,extended release 24 hr Saccharomyces boulardii [Daily 1 tab PO DAILY 04/15/22 05/26/22 History Probiotic (S. boulardii)] torsemide 5 mg tablet 2.5 mg PO DAILY 04/15/22 05/26/22 History isosorbide mononitrate 60 mg 60 mg PO DAILY #30 tabs 04/16/22 05/26/22 Rx tablet,extended release 24 hr metformin 500 mg tablet,extended 1,000 mg PO QPM 05/26/22 05/26/22 History release 24 hr rosuvastatin 10 mg tablet 10 mg PO HS 05/26/22 05/26/22 History Past Med/Surg History Medical History CAD (coronary artery disease) S/p MORENA 01/31/20 to mid LAD Claustrophobia GERD (gastroesophageal reflux disease) [place] (hard of hearing) VERY-NO AIDS HTN (hypertension) Kidney stones Mixed hyperlipidemia Myocardial infarction 01/2020 FELICE (obstructive sleep apnea) CPAP Osteoarthritis Prediabetes Would consider patient diabetic= Hgb A1C 7.7 on 02/01/20; pt also on Januvia and Metformin Scoliosis Spinal stenosis Surgical History History of bladder suspension procedure History of cardiac cath 01/2020 - [facility] - 1 stent - follows w/ Dr. Dailey History of colonoscopy History of esophagogastroduodenoscopy (EGD) History of total shoulder replacement b/l S/P carpal tunnel release BL S/P cataract extraction b/l S/P foot surgery Left x 2, Right x 3 S/P repair of ventral hernia laparascopic x 2 S/P sinus surgery S/P CARRI (total abdominal hysterectomy) S/P tonsillectomy Slow to wake up after anesthesia Total knee replacement status right Family History Father , in 90s from AAA AAA (abdominal aortic aneurysm) Stroke Family history of diabetes mellitus Mother , in her 70s Lung cancer Hypertension Aunt Family history of diabetes mellitus Denies family history of Coronary heart disease Social History Smoking Status: Never smoker Second Hand Exposure: No; Hx Alcohol Use: Yes Alcohol type: wine Hx Substance Use: No Preferred Language: Maori Communication Ability: Effective Hearing Ability: Hard of Hearing 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 Beliefs That Will Affect Care: None marital status: marital status details: 2 children Current Living Situation: Spouse Current Living Situation Comment: house current occupational status: retired 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[employer]; [employer]; 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; 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 Other Information That Helps Us Care for You: No Feels Safe at Home: Yes Safety Concerns: Feels Safe At This Time Physical Activity Frequency: Does not Exercise Assistive Devices: Cane, CPAP and Glasses Review of Systems Review of Systems: All systems reviewed & are unremarkable except as noted in HPI & below Physical Exam Constitutional: WD/WN, vitals as above Eyes: + anicteric sclerae Neck: trachea midline, no thyromegaly Respiratory: normal respiratory effort Auscultation: + crackles Cardiovascular: Rate/Rhythm: regular rate and regular rhythm Heart Sounds: + murmur Vessels: no JVD Extremities: + edema Gastrointestinal (Abdomen): Inspection/Auscultation: abdomen normal to inspection and normal bowel sounds; abdomen not distended Percussion/Palpation: abdomen soft Positive Anne sign Musculoskeletal: Head/Neck/Chest: normocephalic and head atraumatic Skin: no rashes, warm and dry Neurologic: moves all extremities Psychiatric: A+Ox3, euthymic affect Results & Data Results & Data ([facility]) Vital Signs (Past 12 Hours) Vital Signs Temp Pulse Resp BP Pulse Ox O2 Del Method 05/26/22 17:50 74 28 H 97 05/26/22 17:49 77 26 H 96 05/26/22 17:19 91 Room Air 05/26/22 16:58 37.6 C H 82 20 163/72 H 90 Room Air (1) GERD (gastroesophageal reflux disease) Esophagitis presence: esophagitis presence not specified Qualified Code(s): K21.9 - Gastro-esophageal reflux disease without esophagitis (2) HTN (hypertension) Hypertension type: essential hypertension Qualified Code(s): I10 - Essential (primary) hypertension
--- NOTE | 2022-05-26 20:58 | Ultrasound Report ---
US liver CLINICAL HISTORY: +reddy sign/ elevated total bilirubin COMPARISON STUDY: CT of the abdomen and pelvis May 22, 2021. Abdominal ultrasound November 23, 2018. FINDINGS: Liver is sonographically normal. There is no biliary ductal dilatation. Common bile duct me asures 2 mm in caliber. Gallbladder is mildly distended. There is no gallbladder wall thickening. No gallstones are identified. Pancreatic body is normal. Head and tail are partially obscured. There is no right hydronephrosis. IMPRESSION: 1. No gallstones or biliary ductal dilatation. 2. Partially obscured pancreas. ACT 112: Negative or not required by law. Electronically signed by: Eulogio Mooney M.D. 05/26/2022 8:57 PM
[2022-05-26] MEDS ORDERED: ONDANSETRON INJ 2 MG/ML 2 ML VIAL IV PRN (22:30)
[2022-05-26] MEDS ORDERED: CARBOHYDRATES FOR HYPOGLYCEMIA PO PRN (22:30)
[2022-05-26] MEDS ORDERED: GLUCOSE 40% GEL 15 GM TUBE PO PRN (22:30)
[2022-05-26] MEDS ORDERED: GLUCAGON FOR INJ 1 MG VIAL SQ PRN (22:30)
[2022-05-26] MEDS ORDERED: GLUCOSE 10 TAB/TUBE PO PRN (22:30)
[2022-05-26] MEDS ORDERED: DEXTROSE 50% 50 ML SYRINGE IV PRN (22:30)
[2022-05-26] MEDS ORDERED: ACETAMINOPHEN 325 MG TAB PO PRN (22:30)
[2022-05-26] MEDS: ENOXAPARIN INJ 40 MG/0.4 ML SYR SQ SCH (23:26)
[2022-05-27] MEDS: ROSUVASTATIN CALCIUM 10 MG TAB PO SCH ×2 (00:26→20:26)
[2022-05-27] MEDS: rOPINIRole HCL 0.25 MG TABLET PO SCH ×2 (00:26→20:25)
[2022-05-27] MEDS: LANTUS PER UNIT CHARGE SQ SCH ×3 (02:09→20:25)
[2022-05-27] MEDS: INSULIN ASPART PER UNIT SC SCH ×5 (02:09→20:25)
[2022-05-27] MEDS: oxyCODONE/ACETAMINOPHEN 5mg/325mg TAB PO PRN ×3 (02:19→16:49)
[2022-05-27 04:30] LABS: Hematocrit (blood only) 35.8 % (34.1-44.9); Hemoglobin 11.4 g/dl (12.0-16.0); Mean Corpuscular Hemoglobin 26.7 pg (25.0-34.0); Mean Corpuscular Hgb Conc 31.8 g/dL (32.0-36.0); Mean Corpuscular Volume 83.8 fL (80.0-100.0); Mean Platelet Volume 10.3 fL (9.4-12.3); Platelet Count 253 K/uL (130-400); RDW Coefficient of Variation 15.7 % (11.5-14.5); RDW Standard Deviation 48.1 fL (36.4-46.3); Red Blood Count 4.27 M/uL (3.93-5.22); White Blood Count 8.84 K/ul (4.8-10.8)
[2022-05-27 04:54] LABS: Albumin Globulin Ratio 1.2 (0.9-2); Albumin Level 3.7 gm/dl (3.4-5.0); BUN Creatinine Ratio 17.4 (10-20); Bilirubin,Total 1.1 mg/dl (0.2-1.0); Calcium 9.4 mg/dl (8.5-10.1); Creatinine Clr Calc Pharmacy 52.3 ml/min; Est GFR (African American) 72.4 ml/min; Est GFR (Non-African American) 62.5 ml/min; Globulin 3.2 gm/dl (2.5-4.0); Potassium 3.8 mmol/L (3.5-5.1); Total Protein 6.9 gm/dl (6.0-8.3)
[2022-05-27 04:56] LABS: Troponin I High Sensitivity 8.5 pg/ml (0-14)
[2022-05-27 05:10] LABS: Ferritin 83.8 ng/ml (8-388)
[2022-05-27 05:14] LABS: Folate (Folic Acid) 15.03 ng/ml (>5.38)
[2022-05-27 06:37] LABS: Estimated Average Glucose 171 mg/dl; Hemoglobin A1C 7.6 % (4.5-5.6)
[2022-05-27] MEDS: CHOLECALCIFEROL 1,000 UNITS 25 MCG TAB PO SCH (09:20)
[2022-05-27] MEDS: ISOSORBIDE MONO EXTENDED REL 60 MG TABCR PO SCH (09:20)
[2022-05-27] MEDS: SACCHAROMYCES BOULARDII 250 MG CAP PO SCH (09:22)
[2022-05-27] MEDS: FERROUS SULFATE 325 MG TAB PO SCH (09:22)
[2022-05-27] MEDS: ASPIRIN 81 MG ECTAB PO SCH (09:22)
[2022-05-27] MEDS: allopurinoL 100 MG TAB PO SCH (09:22)
[2022-05-27] MEDS: TELMISARTAN 20 MG TAB PO SCH (09:22)
[2022-05-27] MEDS ORDERED: KETOROLAC TROMETHAMINE 15 MG/ML VIAL IV ONE (11:55)
--- NOTE | 2022-05-27 16:08 | Hospitalist Progress Note ---
Date of Service May 27, 2022 Assessment & Plan (1) Atypical chest pain: Plan: Nan is an 81-year-old female who presented for evaluation of 2 episodes of substernal type chest pain with a past medical history of STEMI/PCI. On ER evaluation was with bibasilar crackles potentially concerning for acute on chronic fluid overload and was recommended for admission for observation/cardiac rule out and diuresis. Atypical chest pain -Now resolved Trop and EKG wnl -She has a history of CAD, hx STEMI PCI with MORENA to LAD -TTE 01/2022: EF 50-55%, grade 2 diastolic dysfunction -EKG with chest pain as needed Continue aspirin daily Continue isosorbide Neck Pain: Most likely from arthritis, PRN pain meds Acute on chronic CHF exacerbation with hypoxia -On admission with an oxygen saturation of 85% on room air and sequentially put on 2 L nasal cannula which improved saturations to greater than 90% -Received 60 mg of Lasix in emergency department -Home regimen consists of 2.5 mg of torsemide daily, will hold while receiving Lasix in hospital -We will hold additional diuresis for now not to induce kidney injury -Latest echo (01/2022): EF 50%, apical akinesis, mid septal hypokinesis, DD 2, mild to moderate (PV 2.8, MG 18, SIVA 1.3, DI 0.47), mild MR, PASP 45-50, normal IVC -Wean oxygen as tolerated Elevated total bilirubin -Positive Anne sign exam with chest pain -Ordered right upper quadrant ultrasound to be performed morning to rule out cholecystitis -Repeat CMP in the morning Anemia -Chronic issue without any identifiable work-up recently -Ordered iron studies and vitamin B12 and folate -Continue iron supplementation -Daily CBC Type 2 diabetes mellitus -Patient on metformin and Januvia at home, hold while in hospital -A1c in the morning -Bolus insulin with sliding scale Hypertension -Continue telmisartan, metoprolol Hyperlipidemia -Continue rosuvastatin Obstructive sleep apnea -Use CPAP at night while in hospital Disposition: Admit to [facility] with telemetry Diet: Carb consistent and low-sodium, n.p.o. after midnight DVT prophylaxis: Lovenox CODE STATUS: Full code (2) Elevated brain natriuretic peptide (BNP) level: (3) CAD (coronary artery disease): (4) GERD (gastroesophageal reflux disease): (5) Type 2 diabetes mellitus: (6) HTN (hypertension): (7) FELICE (obstructive sleep apnea): (8) Mixed hyperlipidemia: (9) Microcytic anemia: Plan D/C in the next 24 hrs Admission and Anticipated Discharge Date Admission Date: May 26, 2022 Subjective patient seen and examined, complains of headache and neck pain, says chest pain has resolved Review of Systems Review of Systems: All systems reviewed are negative, apart from the ones contained in the history. Physical Exam Physical Exam: The patient is awake, alert and oriented 3, well developed and well nourished, normocephalic and atraumatic, lying in bed and in no acute distress. HEENT--PERRL, EOMI, mucous membranes and oropharynx mildly dry Neck--supple. No JVD. No bruits. Thyroid normal, trachea midline, no adenopathy. Heart--normal S1 and S2. No murmurs, rubs or gallops. Lungs--clear bilaterally, no respiratory distress, no accessory muscle use. Abdomen--normal bowel sounds and soft. Mild epigastric and left sided abdominal pain Extremities--no cyanosis or clubbing. No edema. Dermatologic--normal skin turgor, normal color, no abnormal lymph nodes, no rash. Neurologic--cranial nerves II through XII grossly intact. Rheumatologic--normal range of motion. Psychiatric--normal affect. Results & Data Results & Data ([facility]) Vital Signs (Past 12 Hours) Vital Signs Temp Pulse Pulse Resp BP BP Pulse Ox 05/27/22 16:01 62 05/27/22 12:22 97.5 F L 75 12 121/72 90 05/27/22 09:00 05/27/22 07:00 60 05/27/22 09:03 98.1 F 95 H 16 119/70 95 05/27/22 04:19 97.2 F L 61 20 111/71 96 O2 Del Method 05/27/22 16:01 05/27/22 12:22 Room Air 05/27/22 09:00 Room Air 05/27/22 07:00 05/27/22 09:03 Room Air 05/27/22 04:19 CPAP PG Care Time/CCT Total # of Minutes Spent Total Time Spent with Patient: Total time spent is greater than 50% in coordination of care (as documented) at patient's floor/unit and/or counseling patient: Coding Level of Care Code 25036 Subseq Hosp Care Lvl 2 Diagnoses Atypical chest pain R07.89 Elevated brain natriuretic peptide (BNP) level R79.89 CAD (coronary artery disease) I25.10 GERD (gastroesophageal reflux disease) K21.9 Esophagitis presence: esophagitis presence not specified Type 2 diabetes mellitus E11.9 HTN (hypertension) I10 Hypertension type: essential hypertension FELICE (obstructive sleep apnea) G47.33 Mixed hyperlipidemia E78.2 Microcytic anemia D50.9 Time Spent (min) 35 (1) GERD (gastroesophageal reflux disease) Esophagitis presence: esophagitis presence not specified Qualified Code(s): K21.9 - Gastro-esophageal reflux disease without esophagitis (2) HTN (hypertension) Hypertension type: essential hypertension Qualified Code(s): I10 - Essential (primary) hypertension
--- NOTE | 2022-05-27 18:41 | Electrocardiogram Report ---
Test Reason : Blood Pressure : / mmHG Vent. Rate : 087 BPM Atrial Rate : 087 BPM P-R Int : 138 ms QRS Dur : 092 ms QT Int : 378 ms P-R-T Axes : 060 -28 049 degrees QTc Int : 454 ms Normal sinus rhythm Possible Left atrial enlargement Incomplete right bundle branch block possible Inferior infarct (cited on or before 31-JAN-2020) Anterolateral infarct (cited on or before 31-JAN-2020) Abnormal ECG When compared with ECG of 22-MAY-2021 21:21, Incomplete right bundle branch block is now Present Confirmed by Chapin Polanco ([id number]) on 05/27/2022 6:40:39 PM Referred By: REFERRED SELF Confirmed By:Chalino Polanco
[2022-05-27] MEDS: ENOXAPARIN INJ 40 MG/0.4 ML SYR SQ SCH (20:24)
[2022-05-28] MEDS: oxyCODONE/ACETAMINOPHEN 5mg/325mg TAB PO PRN ×2 (00:32→08:28)
[2022-05-28 08:13] LABS: Hematocrit (blood only) 34.8 % (34.1-44.9); Hemoglobin 10.9 g/dl (12.0-16.0); Mean Corpuscular Hemoglobin 26.8 pg (25.0-34.0); Mean Corpuscular Hgb Conc 31.3 g/dL (32.0-36.0); Mean Corpuscular Volume 85.7 fL (80.0-100.0); Mean Platelet Volume 9.9 fL (9.4-12.3); Platelet Count 252 K/uL (130-400); RDW Coefficient of Variation 15.6 % (11.5-14.5); RDW Standard Deviation 49.1 fL (36.4-46.3); Red Blood Count 4.06 M/uL (3.93-5.22); White Blood Count 5.81 K/ul (4.8-10.8)
[2022-05-28] MEDS: FERROUS SULFATE 325 MG TAB PO SCH (08:29)
[2022-05-28] MEDS: SACCHAROMYCES BOULARDII 250 MG CAP PO SCH (08:29)
[2022-05-28] MEDS: allopurinoL 100 MG TAB PO SCH (08:29)
[2022-05-28] MEDS: ISOSORBIDE MONO EXTENDED REL 60 MG TABCR PO SCH (08:29)
[2022-05-28] MEDS: TELMISARTAN 20 MG TAB PO SCH (08:29)
[2022-05-28] MEDS: CHOLECALCIFEROL 1,000 UNITS 25 MCG TAB PO SCH (08:29)
[2022-05-28] MEDS: ASPIRIN 81 MG ECTAB PO SCH (08:29)
[2022-05-28] MEDS: LANTUS PER UNIT CHARGE SQ SCH (08:40)
[2022-05-28] MEDS: INSULIN ASPART PER UNIT SC SCH ×2 (08:40→11:48)
[2022-05-28] MEDS ORDERED: CYCLOBENZAPRINE HCL 10 MG TAB PO STA (11:26)
--- NOTE | 2022-05-28 15:53 | Discharge Summary ---
Date of Service May 28, 2022 Admission HPI Per Admitting Provider Patient is an 81-year-old female with past medical history of CAD, acute MD in January 2020, GERD, prediabetes, hyperlipidemia, hypertension, obstructive sleep apnea, and pulmonary hypertension presenting to the emergency department for the chief complaint of chest pain. Patient reports that this morning she had chest pain at around 930 that was a 10 out of 10 and felt like it was more of a pressure than a pain. She states that she took nitroglycerin and reports soon after it did improve her pain. All was well until about 4:30 in the afternoon when the pain returned albeit not as intense and again patient had taken nitroglycerin, however, at this time it did not improve her pain. Because of this, patient called an ambulance and was brought to the emergency room. She states that the pain was midline with some radiation to the right neck. Reports to me that she did not have much to eat today and the chest pain arose before having any food today. Patient denies fever, chills, headache, nausea, vomiting , or weight gain. For the most part she did not have any shortness of breath, however, she did note feeling short of breath in the ambulance ride and was given oxygen at that time patient arrived. Of note patient did take all of her medications today except for torsemide as she was not sure if she was going to be going to the hospital or not and she would maintain control of her bladder. Cardiac history: -Cardiac history began 01/2020 when presented to [facility] with more than 12 hours of stuttering chest pain and EKG showed anterior ST elevations with frequent PVCs. Found to have a mid LAD occlusion which was treated with a single drug-eluting stent. Procedure uncomplicated. -Presented to [facility] ED 01/19/21 for shortness of breath and chest tightness. Troponin neg x1 and EKG without acute changes. ProBNP elevated at 2006 and on exam was felt to be volume overloaded. Chest xray with chronic interstitial changes. Was given a dose of IV Lasix in the ED and discharged home on Lasix 20 mg daily. -Seen 01/2022 with worsening chest pressure reminiscent of prior MD. Underwent Lexiscan SPECT which was negative for significant ischemia. Echo unchanged, moderate moderate . Latest echo (01/2022): EF 50%, apical akinesis, mid septal hypokinesis, DD 2, mild to moderate (PV 2.8, MG 18, SIVA 1.3, DI 0.47), mild MR, PASP 45-50, normal IVC ED course: Patient presented due to concern for chest pain for which blood work, EKG, troponin, chest x-ray, BMP were ordered. Significant labs include hemoglobin of 11, BNP of 223, T bili of 1.3. Troponin negative. Chest x-ray shows no acute cardiopulmonary findings. EKG showing no significant ST elevations. Patient was given 60 mg of Lasix and 2 mg of morphine which reportedly improved her symptoms. Principal Diagnosis atypical chest pain Discharge Exam The patient is awake, alert and oriented 3, well developed and well nourished, normocephalic and atraumatic, lying in bed and in no acute distress. HEENT--PERRL, EOMI, mucous membranes and oropharynx mildly dry Neck--supple. No JVD. No bruits. Thyroid normal, trachea midline, no adenopa thy. Heart--normal S1 and S2. No murmurs, rubs or gallops. Lungs--clear bilaterally, no respiratory distress, no accessory muscle use. Abdomen--normal bowel sounds and soft. Mild epigastric and left sided abdominal pain Extremities--no cyanosis or clubbing. No edema. Dermatologic--normal skin turgor, normal color, no abnormal lymph nodes, no rash. Neurologic--cranial nerves II through XII grossly intact. Rheumatologic--normal range of motion. Psychiatric--normal affect. Discharge Data Allergies Allergy/AdvReac Type Severity Reaction Status Date / Time Penicillins Allergy Intermediate pruritis, Verified 05/26/22 19:30 swelling of extremeties amoxicillin Allergy Mild Rash Verified 05/26/22 19:30 Iodinated Contrast Media Allergy Unknown History Verified 05/26/22 19:30 topical iodine allergy iodine Allergy Unknown pruritis, Verified 05/26/22 19:30 contact dermatitis pork derived (porcine) Allergy Unknown unknown Verified 05/26/22 19:30 thimerosal Allergy Unknown unknown Verified 05/26/22 19:30 atorvastatin AdvReac Intermediate Upset Verified 05/26/22 19:30 stomach, diarrhea diazepam AdvReac Unknown Nausea and Verified 05/26/22 19:30 hyperactive lisinopril AdvReac Unknown Nausea Verified 05/26/22 19:30 meclofenamic acid AdvReac Unknown Diarrhea Verified 05/26/22 19:30 naproxen AdvReac Unknown NAUSEA Verified 05/26/22 19:30 mcclomen Allergy Mild GI SYMPTOMS Uncoded 05/26/22 19:30 Flu Virus Vaccine Allergy Unknown unknown Uncoded 05/26/22 19:30 Naproxen AdvReac Unknown Gastrointestinal Uncoded 05/26/22 19:30 Upset Consultations 05/26/22 19:04 ED Decision to Admit Stat Ordered Studies 05/26/22 19:48 US RUQ [US liver] Routine Hospital Course (1) Atypical chest pain: Nan is an 81-year-old female who presented for evaluation of 2 episodes of substernal type chest pain with a past medical history of STEMI/PCI. On ER evaluation was with bibasilar crackles potentially concerning for acute on chronic fluid overload and was recommended for admission for observation/cardiac rule out and diuresis. Atypical chest pain -Now resolved Trop and EKG wnl -She has a history of CAD, hx STEMI PCI with MORENA to LAD -TTE 01/2022: EF 50-55%, grade 2 diastolic dysfunction -EKG with chest pain as needed Continue aspirin daily Continue isosorbide Neck Pain: Most likely from arthritis, PRN pain meds Acute on chronic CHF exacerbation with hypoxia -On admission with an oxygen saturation of 85% on room air and sequentially put on 2 L nasal cannula which improved saturations to greater than 90% -Received 60 mg of Lasix in emergency department -Home regimen consists of 2.5 mg of torsemide daily, will hold while receiving Lasix in hospital -We will hold additional diuresis for now not to induce kidney injury -Latest echo (01/2022): EF 50%, apical akinesis, mid septal hypokinesis, DD 2, mild to moderate (PV 2.8, MG 18, SIVA 1.3, DI 0.47), mild MR, PASP 45-50, normal IVC -Wean oxygen as tolerated Elevated total bilirubin -Positive Anne sign exam with chest pain -Ordered right upper quadrant ultrasound to be performed morning to rule out cholecystitis -Repeat CMP in the morning Anemia -Chronic issue without any identifiable work-up recently -Ordered iron studies and vitamin B12 and folate -Continue iron supplementation -Daily CBC Type 2 diabetes mellitus -Patient on metformin and Januvia at home, hold while in hospital -A1c in the morning -Bolus insulin with sliding scale Hypertension -Continue telmisartan, metoprolol Hyperlipidemia -Continue rosuvastatin Obstructive sleep apnea -Use CPAP at night while in hospital Disposition: Admit to [facility] with telemetry Diet: Carb consistent and low-sodium, n.p.o. after midnight DVT prophylaxis: Lovenox CODE STATUS: Full code (2) Elevated brain natriuretic peptide (BNP) level: (3) CAD (coronary artery disease): (4) GERD (gastroesophageal reflux disease): (5) Type 2 diabetes mellitus: (6) HTN (hypertension): (7) FELICE (obstructive sleep apnea): (8) Mixed hyperlipidemia: (9) Microcytic anemia: Plan D/C in the next 24 hrs Total Time Total Time Spent Total Time Spent (In Minutes): 35 Discharge Plan Discharge Items Patient Disposition: Home - Self-Care Reason For Visit: CHEST PAIN Discharge Diagnosis: Atypical chest pain, Activity: Resume your previous activity Non-emergency contact: Primary Care Provider and [employer] Service Technician Call non-emergency contact if: you have any medication questions Follow-up/Referrals: Nicholas Casey MD [Primary Care Provider] - 06/08/22 7:50 am Diet: Regular Addtl Attending Provider Instructions: please make appointment to follow up with your regular PCP and supervisor customer services Pending Studies at Discharge: No Stand-Alone Forms: [facility], Smoking Cessation Medications and DC Order Prescriptions: Continued nitroglycerin [Nitrostat] 0.4 mg tablet, sublingual 0.4 mg sublingual DIRECTED PRN (Reason: Chest Pain) Qty: 60 3RF Rx Instructions: Place one tablet under the tongue every 5 minutes for up to 3 doses over 15 minutes if needed for chest pain. If unrelieved or worsened 3-5 minutes after 1 dose, call isosorbide mononitrate 60 mg tablet extended release 24 hr 60 mg PO DAILY Qty: 30 6RF ropinirole 0.5 mg tablet 0.5 mg PO HS ferrous sulfate 325 mg (65 mg iron) tablet,delayed release (DR/EC) 325 mg PO DAILY Saccharomyces boulardii [Daily Probiotic (S. boulardii)] 1 tab PO DAILY torsemide 5 mg tablet 2.5 mg PO DAILY telmisartan 20 mg tablet 20 mg PO QAM cholecalciferol (vitamin D3) 50 mcg (2,000 unit) capsule 2,000 units PO QAM metoprolol succinate 50 mg tablet extended release 24 hr 50 mg PO HS Qty: 90 3RF aspirin 81 mg Tablet,Delayed Release (Dr/Ec) 81 mg PO QAM Qty: 30 0RF Januvia 100 mg tablet 100 mg PO QAM metformin 500 mg tablet extended release 24 hr 500 mg PO QAM Rx Instructions: 500 mg PO QAM, 1000mg QPM allopurinol 100 mg tablet 200 mg PO QAM oxycodone-acetaminophen [Percocet] 5-325 mg tablet 1 tab PO Q6H PRN (Reason: pain) Qty: 8 0RF rosuvastatin 10 mg tablet 10 mg PO HS metformin 500 mg tablet extended release 24 hr 1,000 mg PO QPM Discharge Orders: Discharge Order (Routine); Ordered 05/28/22 Ordered By: Heber Plascencia Admission Data Admit Date/Time: 05/26/22 19:45 Attending Provider: Heber Plascencia Admit Provider: Deepak Ovalle Primary Care Provider: Nicholas Casey Other Providers: Romaine Lainez Other Interventions: Discharge Summary Assessment (RN) Last Done: 05/28/22 13:49 Coding Level of Care Code D/C DAY MANAGEMENT >30 MINS Diagnoses Atypical chest pain R07.89 Elevated brain natriuretic peptide (BNP) level R79.89 CAD (coronary artery disease) I25.10 GERD (gastroesophageal reflux disease) K21.9 Esophagitis presence: esophagitis presence not specified Type 2 diabetes mellitus E11.9 HTN (hypertension) I10 Hypertension type: essential hypertension FELICE (obstructive sleep apnea) G47.33 Mixed hyperlipidemia E78.2 Microcytic anemia D50.9 Time Spent (min) 35
== END 2022-05-28 14:15 | disposition home or self-care (01) ==
LOC: ED 17:07 → EDINP 17:07 → SUATTDRO 19:45 → 2W 22:35

== ENCOUNTER 2022-06-02 07:40 | Observation (INO) ==
[2022-06-02] MEDS ORDERED: diphenhydrAMINE 50 MG/ML VIAL IV STA (08:23)
[2022-06-02] MEDS ORDERED: methylPREDNISolone 125 MG/2 ML VIAL IV STA (08:23)
[2022-06-02 08:43] LABS: Appearance Urine Cloudy (Clear); Bacteria Urine Automated 1+ (Negative); Blood Urine Negative (Negative); Color Urine Dark Yellow; Epithelial Cell Urine Auto >30 /lpf (0-5); Glucose Urine UA Negative (Negative); Ketones Urine Trace (Negative); Leukocyte Esterase Urine Negative (Negative); Nitrite Urine Negative (Negative); Protein Urine 1+ (Negative); Specific Gravity Urine 1.024 (1.000-1.030); Urobilinogen Urine Negative (Negative)
[2022-06-02 08:49] LABS: Bilirubin Urine 1+ (Negative)
--- NOTE | 2022-06-02 08:49 | XRay Report ---
XR chest 1V portable CLINICAL HISTORY: weakness TECHNIQUE: Single frontal radiograph of the chest was obtained. 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 Calcified aortic knob is seen. The lungs are clear. No evidence of pleural effusion or pneumothorax. IMPRESSION: No acute chest disease. ACT 112: Negative or not required by law. Electronically signed by: Portillo Del Rio M.D. 06/02/2022 8:47 AM
[2022-06-02 09:15] LABS: Basophils # (auto) 0.02 K/uL (0-0.2); Basophils % (auto) 0.3 %; Eosinophils # (auto) 0.07 K/uL (0-0.50); Eosinophils % (auto) 0.9 %; Hematocrit (blood only) 35.5 % (34.1-44.9); Hemoglobin 11.2 g/dl (12.0-16.0); Immature Granulocytes # (auto) 0.05 K/uL (0.00-0.02); Immature Granulocytes % (auto) 0.7 %; Lymphocytes # (auto) 1.27 K/uL (1.2-3.4); Lymphocytes % (auto) 16.8 %; Mean Corpuscular Hemoglobin 26.9 pg (25.0-34.0); Mean Corpuscular Hgb Conc 31.5 g/dL (32.0-36.0); Mean Corpuscular Volume 85.1 fL (80.0-100.0); Mean Platelet Volume 9.7 fL (9.4-12.3); Monocytes # (auto) 0.65 K/uL (0.24-0.82); Monocytes % (auto) 8.6 %; Neutrophils # (auto) 5.48 K/uL (1.4-6.5); Neutrophils % (auto) 72.7 %; Platelet Count 356 K/uL (130-400); RDW Coefficient of Variation 15.5 % (11.5-14.5); RDW Standard Deviation 47.6 fL (36.4-46.3); Red Blood Count 4.17 M/uL (3.93-5.22); White Blood Count 7.54 K/ul (4.8-10.8)
[2022-06-02 09:33] LABS: Albumin Globulin Ratio 1.1 (0.9-2); Albumin Level 3.8 gm/dl (3.4-5.0); BUN Creatinine Ratio 24.2 (10-20); Bilirubin,Total 0.5 mg/dl (0.2-1.0); Calcium 9.8 mg/dl (8.5-10.1); Creatinine Clr Calc Pharmacy 20.8 ml/min; Est GFR (African American) 23.4 ml/min; Est GFR (Non-African American) 20.2 ml/min; Globulin 3.5 gm/dl (2.5-4.0); Potassium 4.5 mmol/L (3.5-5.1); Total Protein 7.3 gm/dl (6.0-8.3)
[2022-06-02 09:49] LABS: Thyroid Stimulating Hormone 5.681 uIu/ml (0.300-4.500)
[2022-06-02 10:21] LABS: T4 Free Thyroxine 1.16 ng/dl (0.61-1.60)
--- NOTE | 2022-06-02 12:32 | CT Scan Report ---
CT OF THE ABDOMEN AND PELVIS WITHOUT CONTRAST CLINICAL HISTORY: Abdominal pain, acute renal insufficiency COMPARISON STUDY: CT of the abdomen pelvis May 22, 2021. Right upper quadrant ultrasound May 26, 2022. TECHNIQUE: Axial images of the abdomen and pelvis were obtained without IV contrast. Images were revi ewed in the axial, sagittal, and coronal planes. Automated exposure control was utilized for the gabriela dy. A dose lowering technique was utilized adhering to the principles of ALARA. FINDINGS: Lung bases are unremarkable. No pneumatosis, free air or portal venous gas is present. Ther e is no hydronephrosis. There are no ureteral calculi. A 2 mm calcification within left renal sinus i s noted. This could reflect a nonobstructing calculus or a vascular calcification. This is unchanged. Evaluation of the abdomen and pelvis is suboptimal on this unenhanced exam. The liver, spleen, adren al glands and pancreas are unremarkable. There is no biliary or pancreatic ductal dilatation. No yessenia pancreatic or pericholecystic stranding is present. There is no evidence for a bowel obstruction. Col onic diverticulosis is noted without evidence for acute diverticulitis. Appendix is normal. Moderate sized hiatal hernia is present. There may be subtle stranding adjacent to several jejunal loops. No a cute fracture or suspicious lesion within visualized skeletal structures. There is mild dextroscolios is of the lumbar spine. IMPRESSION: 1. Mild stranding adjacent to several jejunal loops. This may reflect a mild nonspecific enteritis. 2. No ureteral calculi or hydronephrosis. No change in a 2 mm left renal sinus calcification which co uld reflect a nonobstructing calculus or vascular calcification. 3. Colonic diverticulosis. No evidence for acute diverticulitis. Normal appendix. 4. No bowel obstruction. ACT 112: Negative or not required by law. Electronically signed by: Eulogio Mooney M.D. 06/02/2022 12:16 PM
[2022-06-02] MEDS ORDERED: SODIUM CHLORIDE 0.9% 500 ML IV ONE (13:16)
--- NOTE | 2022-06-02 13:27 | Emergency Department Note ---
Impression & Plan Acute dehydration, MARIAMA (acute kidney injury), Weakness generalized, Fall as cause of accidental injury at home as place of occurrence, Unable to ambulate ED Provider Note CHIEF COMPLAINT: fall, unable to get up, abd pain HISTORY OF PRESENT ILLNESS: This 81 yo female patient presents to the emergency department with complaints of a fall on the floor. Patient states she was dizzy and fell. She called for her . Patient states they spent a considerable amount of time attempting to get her up. Finally they called 911. Patient did not want to come to the hospital because she was just discharged after an inpatient stay on the eighth of this month. She does have a history of con gestive heart failure, diabetes and [place]. Patient states she has not felt much like eating or drinking lately. She last urinated yesterday afternoon. She denies any burning or blood in the urine. She denies any recent fevers, chills, chest pain or shortness of breath. REVIEW OF SYSTEMS: A review of systems was performed with positives and pertinent negatives listed in the history of present illness. 10 systems were reviewed and are otherwise negative. ALLERGIES: see below MEDICATIONS: see below PMH: see below SOCIAL HISTORY: see below DDx: Infection, dehydration, metabolic abnormality, hypo/hyperglycemia, electrolyte disturbance, anemia, hypoxia, cardiac sources, intracerebral event, toxicologic, neurologic, as well as other pathologies. PHYSICAL EXAM: Vital signs reviewed. General: Generally well-appearing, elderly 81-year-old female, in no significant distress. HEENT: No scleral icterus, PERRLA, neck supple. Atraumatic. Cardiovascular: Regular rate and rhythm, no extra sounds. Pulmonary: Clear to auscultation bilaterally, normal work of breathing. Abdomen: Soft, nontender, nondistended, positive bowel sounds. Musculoskeletal: Atraumatic, no peripheral edema. Neurologic: Patient awake alert and oriented x 3, speech is clear Skin: Warm, dry, no rash EMERGENCY DEPARTMENT COURSE/MDM: This patient was evaluated and appeared to be in no significant distress. IV access was obtained and laboratory work was drawn. Patient was placed on a potline monitor and noted to be in normal sinus rhythm. Patient has a complicated past medical history including congestive heart failure, diabetes coronary artery disease. She was recently hospitalized and had her torsemide adjusted. She states she has also been attempting to follow a new diet. Patient's laboratory work reveals an acute on chronic kidney disease. She was hydrated with normal saline solution. UA is negative for acute infection. MONITORING: An order for cardiac monitoring was placed and the patient is noted to be in a NSR at 68 beats per minute. RADIOLOGY: see below EKG: Normal sinus rhythm at 62 bpm w PACs. Left atrial enlargement. Incomplete right bundle branch block. Previous inferior infarct, anterior septal infarct. When compared to previous dated May 26, 2022, PACs are new. DISPOSITION: Admission Past Med/Surg History Medical History CAD (coronary artery disease) S/p MORENA 01/31/20 to mid LAD Claustrophobia GERD (gastroesophageal reflux disease) [place] (hard of hearing) VERY-NO AIDS HTN (hypertension) Kidney stones Mixed hyperlipidemia Myocardial infarction 01/2020 FELICE (obstructive sleep apnea) CPAP Osteoarthritis Prediabetes Would consider patient diabetic= Hgb A1C 7.7 on 02/01/20; pt also on Januvia and Metformin Scoliosis Spinal stenosis Surgical History History of bladder suspension procedure History of cardiac cath 01/2020 - [facility] - 1 stent - follows w/ Dr. Dailey History of colonoscopy History of esophagogastroduodenoscopy (EGD) History of total shoulder replacement b/l S/P carpal tunnel release BL S/P cataract extraction b/l S/P foot surgery Left x 2, Right x 3 S/P repair of ventral hernia laparascopic x 2 S/P sinus surgery S/P CARRI (total abdominal hysterectomy) S/P tonsillectomy Slow to wake up after anesthesia Total knee replacement status right Family History Father , in 90s from AAA AAA (abdominal aortic aneurysm) Stroke Family history of diabetes mellitus Mother , in her 70s Lung cancer Hypertension Aunt Family history of diabetes mellitus Denies family history of Coronary heart disease Social History Smoking Status: Never smoker Second Hand Exposure: No; Hx Alcohol Use: Yes Alcohol type: wine Hx Substance Use: No Preferred Language: Amharic Communication Ability: Effective Hearing Ability: Hard of Hearing [place] Required: No Beliefs That Will Affect Care: None marital status: marital status details: 2 children Current Living Situation: Spouse Current Living Situation Comment: house current occupational status: retired 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[employer]; [employer]; 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; 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 Other Information That Helps Us Care for You: No Feels Safe at Home: Yes Physical Activity Frequency: Does not Exercise Assistive Devices: Cane and Walker Allergies Allergies Allergy/AdvReac Type Severity Reaction Status Date / Time Penicillins Allergy Intermediate pruritis, Verified 06/02/22 16:13 swelling of extremeties amoxicillin Allergy Mild Rash Verified 06/02/22 16:13 Iodinated Contrast Media Allergy Unknown History Verified 06/02/22 16:13 topical iodine allergy iodine Allergy Unknown pruritis, Verified 06/02/22 16:13 contact dermatitis pork derived (porcine) Allergy Unknown unknown Verified 06/02/22 16:13 thimerosal Allergy Unknown unknown Verified 06/02/22 16:13 atorvastatin AdvReac Intermediate Upset Verified 06/02/22 16:13 stomach, diarrhea diazepam AdvReac Unknown Nausea and Verified 06/02/22 16:13 hyperactive lisinopril AdvReac Unknown Nausea Verified 06/02/22 16:13 meclofenamic acid AdvReac Unknown Diarrhea Verified 06/02/22 16:13 naproxen AdvReac Unknown NAUSEA Verified 06/02/22 16:13 mcclomen Allergy Mild GI SYMPTOMS Uncoded 06/02/22 16:13 Flu Virus Vaccine Allergy Unknown unknown Uncoded 06/02/22 16:13 Naproxen AdvReac Unknown Gastrointestinal Uncoded 06/02/22 16:13 Upset Home Meds Home Medications Medication Instructions Recorded Confirmed cholecalciferol (vitamin D3) 50 2,000 units PO QAM 04/29/20 06/02/22 mcg (2,000 unit) capsule telmisartan 20 mg tablet 20 mg PO QAM 04/29/20 06/02/22 ropinirole 0.5 mg tablet 0.5 mg PO HS 07/22/20 06/02/22 sitagliptin 100 mg tablet (Januvia) 100 mg PO QAM 12/01/20 06/02/22 allopurinol 100 mg tablet 200 mg PO QAM 09/03/21 06/02/22 ferrous sulfate 325 mg (65 mg 325 mg PO DAILY 09/03/21 06/02/22 iron) tablet,delayed release metformin 500 mg tablet,extended 500 mg PO QAM 09/03/21 06/02/22 release 24 hr Saccharomyces boulardii [Daily 1 tab PO DAILY 04/15/22 06/02/22 Probiotic (S. boulardii)] torsemide 5 mg tablet 2.5 mg PO DAILY 04/15/22 06/02/22 metformin 500 mg tablet,extended 1,000 mg PO QPM 05/26/22 06/02/22 release 24 hr rosuvastatin 10 mg tablet 10 mg PO HS 05/26/22 06/02/22 Previous Rx's Medication Instructions Recorded aspirin 81 mg tablet,delayed 81 mg PO QAM #30 tabs 02/02/20 release oxycodone-acetaminophen 5 mg-325 1 tab PO Q6H PRN pain #8 tabs 05/23/21 mg tablet (Percocet) nitroglycerin 0.4 mg sublingual 0.4 mg sublingual DIRECTED PRN 10/07/21 tablet (Nitrostat) Chest Pain #60 tabs metoprolol succinate 50 mg 50 mg PO HS #90 tabs 02/24/22 tablet,extended release 24 hr isosorbide mononitrate 60 mg 60 mg PO DAILY #30 tabs 04/16/22 tablet,extended release 24 hr Results & Data (ED) Vital Signs Vital Signs - 24 hr 06/02/22 07:48 06/02/22 07:48 06/02/22 08:34 Temperature 36.9 C 36.9 C Temperature Source Oral Oral Pulse Rate 60 60 Pulse Rate [Apical] 60 Pulse Rhythm Regular Pulse Rhythm [Apical] Regular Pulse Strength Normal Pulse Strength [Apical] Normal Respiratory Rate 25 H 25 H 24 Respiratory Effort / Characteristics Non-Labored Non-Labored Respiratory Depth Normal Normal Respiratory Pattern Regular Regular Blood Pressure 146/62 H Blood Pressure [Right Arm] 146/62 H Blood Pressure Mean 90 Blood Pressure Mean [Right Arm] 90 Blood Pressure Position Lying Blood Pressure Position [Right Arm] Lying Pulse Oximetry 96 98 99 Oxygen Delivery Method Room Air Room Air Room Air Sepsis Recent Fever Within 48 Hours No Sepsis New/Unexplained Change in Mental Status No Sepsis Action Taken by Nursing No Action Required 06/02/22 09:00 Temperature Temperature Source Pulse Rate Pulse Rate [Apical] 68 Pulse Rhythm Pulse Rhythm [Apical] Regular Pulse Strength Pulse Strength [Apical] Normal Respiratory Rate 20 Respiratory Effort / Characteristics Non-Labored Respiratory Depth Normal Respiratory Pattern Regular Blood Pressure Blood Pressure [Right Arm] 132/85 Blood Pressure Mean Blood Pressure Mean [Right Arm] 100 Blood Pressure Position Blood Pressure Position [Right Arm] Lying Pulse Oximetry 94 Oxygen Delivery Method Room Air Sepsis Recent Fever Within 48 Hours Sepsis New/Unexplained Change in Mental Status Sepsis Action Taken by Nursing Laboratory Data Result diagrams: 06/03/22 07:47 06/03/22 07:47 Lab Results 06/02/22 06/02/22 06/02/22 Range/Units 08:00 08:30 08:30 WBC (4.8-10.8) K/ul RBC (3.93-5.22) M/uL Hgb (12.0-16.0) g/dl Hct (34.1-44.9) % MCV (80.0-100.0) fL MCH (25.0-34.0) pg MCHC (32.0-36.0) g/dL RDW Std Deviation (36.4-46.3) fL RDW Coeff of Angelina (11.5-14.5) % Plt Count (130-400) K/uL MPV (9.4-12.3) fL Immature Gran % (Auto) % Neut % (Auto) % Lymph % (Auto) % [place] % (Auto) % Eos % (Auto) % Baso % (Auto) % Neut # (Auto) (1.4-6.5) K/uL Lymph # (Auto) (1.2-3.4) K/uL [place] # (Auto) (0.24-0.82) K/uL Eos # (Auto) (0-0.50) K/uL Baso # (Auto) (0-0.2) K/uL Immature Gran # (Auto) (0.00-0.02) K/uL Sodium (136-145) mmol/L Potassium (3.5-5.1) mmol/L Chloride (98-107) mmol/L Carbon Dioxide (21-32) mmol/L Anion Gap (3-11) BUN (6-23) mg/dl Creatinine (0.6-1.2) mg/dl Est Cr Clr Drug Dosing ml/min Est GFR ( Amer) ml/min Est GFR (Non-Af Amer) ml/min BUN/Creatinine Ratio (10-20) Glucose (70-99(Fasting)) mg/dl POC Glucose 135 H (70-99) mg/dl Calcium (8.5-10.1) mg/dl Total Bilirubin (0.2-1.0) mg/dl AST (13-39) U/L ALT (7-52) U/L Alkaline Phosphatase (34-104) U/L Total Protein (6.0-8.3) gm/dl Albumin (3.4-5.0) gm/dl Globulin (2.5-4.0) gm/dl Albumin/Globulin Ratio (0.9-2) TSH (0.300-4.500) uIu/ml Free T4 (0.61-1.60) ng/dl Urine Color Dark Yellow Urine Appearance Cloudy A (Clear) Urine pH 5.0 (4.5-7.5) Ur Specific [place] 1.024 (1.000-1.030) Urine Protein 1+ H (Negative) Urine Glucose (UA) Negative (Negative) Urine Ketones Trace H (Negative) Urine Blood Negative (Negative) Urine Nitrite Negative (Negative) Urine Bilirubin 1+ H (Negative) Urine Urobilinogen Negative (Negative) Ur Leukocyte Esterase Negative (Negative) Urine WBC (Auto) 5-10 H (0-5) /hpf Urine RBC (Auto) 5-10 H (0-4) /hpf U Hyaline Cast (Auto) 5-10 H (0-5) /lpf U Epithel Cells (Auto) >30 H (0-5) /lpf Urine Bacteria (Auto) 1+ H (Negative) Ur Renal Epithelial Cell Not Reportable SARS-CoV-2, RNA, NAAT NEGATIVE (NEGATIVE) 06/02/22 06/02/22 06/02/22 Range/Units 09:00 09:00 09:00 WBC 7.54 (4.8-10.8) K/ul RBC 4.17 (3.93-5.22) M/uL Hgb 11.2 L (12.0-16.0) g/dl Hct 35.5 (34.1-44.9) % MCV 85.1 (80.0-100.0) fL MCH 26.9 (25.0-34.0) pg MCHC 31.5 L (32.0-36.0) g/dL RDW Std Deviation 47.6 H (36.4-46.3) fL RDW Coeff of Angelina 15.5 H (11.5-14.5) % Plt Count 356 (130-400) K/uL MPV 9.7 (9.4-12.3) fL Immature Gran % (Auto) 0.7 % Neut % (Auto) 72.7 % Lymph % (Auto) 16.8 % [place] % (Auto) 8.6 % Eos % (Auto) 0.9 % Baso % (Auto) 0.3 % Neut # (Auto) 5.48 (1.4-6.5) K/uL Lymph # (Auto) 1.27 (1.2-3.4) K/uL [place] # (Auto) 0.65 (0.24-0.82) K/uL Eos # (Auto) 0.07 (0-0.50) K/uL Baso # (Auto) 0.02 (0-0.2) K/uL Immature Gran # (Auto) 0.05 H (0.00-0.02) K/uL Sodium 138 (136-145) mmol/L Potassium 4.5 (3.5-5.1) mmol/L Chloride 102 (98-107) mmol/L Carbon Dioxide 26 (21-32) mmol/L Anion Gap 10 (3-11) BUN 53 H (6-23) mg/dl Creatinine 2.19 H (0.6-1.2) mg/dl Est Cr Clr Drug Dosing 20.8 ml/min Est GFR ( Amer) 23.4 ml/min Est GFR (Non-Af Amer) 20.2 ml/min BUN/Creatinine Ratio 24.2 H (10-20) Glucose 131 H (70-99(Fasting)) mg/dl POC Glucose (70-99) mg/dl Calcium 9.8 (8.5-10.1) mg/dl Total Bilirubin 0.5 (0.2-1.0) mg/dl AST 17 (13-39) U/L ALT 13 (7-52) U/L Alkaline Phosphatase 63 (34-104) U/L Total Protein 7.3 (6.0-8.3) gm/dl Albumin 3.8 (3.4-5.0) gm/dl Globulin 3.5 (2.5-4.0) gm/dl Albumin/Globulin Ratio 1.1 (0.9-2) TSH 5.681 H (0.300-4.500) uIu/ml Free T4 1.16 (0.61-1.60) ng/dl Urine Color Urine Appearance (Clear) Urine pH (4.5-7.5) Ur Specific [place] (1.000-1.030) Urine Protein (Negative) Urine Glucose (UA) (Negative) Urine Ketones (Negative) Urine Blood (Negative) Urine Nitrite (Negative) Urine Bilirubin (Negative) Urine Urobilinogen (Negative) Ur Leukocyte Esterase (Negative) Urine WBC (Auto) (0-5) /hpf Urine RBC (Auto) (0-4) /hpf U Hyaline Cast (Auto) (0-5) /lpf U Epithel Cells (Auto) (0-5) /lpf Urine Bacteria (Auto) (Negative) Ur Renal Epithelial Cell SARS-CoV-2, RNA, NAAT (NEGATIVE) Administered Medications Discontinued Medications Allopurinol (Allopurinol 100 Mg Tab) 200 mg PO [facility] Stop: 07/03/22 08:59 Last Admin: 06/03/22 09:33 Dose: 200 mg Documented By: DAVID Aspirin (Aspirin 81 Mg Ectab) 81 mg PO [facility] Stop: 07/03/22 08:59 Last Admin: 06/03/22 09:33 Dose: 81 mg Documented By: Diphenhydramine HCl (Diphenhydramine 50 Mg/Ml Vial) 25 mg IV NOW STA Stop: 06/02/22 08:24 Last Admin: 06/02/22 08:54 Dose: 25 mg Documented By: MONICA Sodium Chloride (Nss) 500 mls @ 999 mls/hr IV .Q31M ONE Stop: 06/02/22 13:46 Last Infusion: 06/02/22 14:30 Dose: 0 mls/hr Documented By: Admin: 06/02/22 13:58 Dose: 999 mls/hr Documented By: MONICA Sodium Chloride (Nss 1000ml) 1,000 mls @ 150 mls/hr IV .Q6H40M [facility] Stop: 07/02/22 13:29 Last Infusion: 06/02/22 22:28 Dose: 0 mls/hr Documented By: Infusion: 06/02/22 17:21 Dose: 0 mls/hr Documented By: Admin: 06/02/22 14:33 Dose: 150 mls/hr Documented By: MONICA Sodium Chloride (Nss 1000ml) 1,000 mls @ 100 mls/hr IV .Q10H [facility] Stop: 07/02/22 17:09 Last Admin: 06/03/22 05:42 Dose: 100 mls/hr Documented By: Infusion: 06/03/22 03:39 Dose: 100 mls/hr Documented By: Admin: 06/02/22 17:39 Dose: 100 mls/hr Documented By: CYNDIE Sodium Chloride (Nss 1000ml) 1,000 mls @ 100 mls/hr IV .Q10H [facility] Stop: 07/02/22 17:09 Last Admin: 06/02/22 17:22 Dose: Not Given Documented By: CYNDIE Insulin Aspart (Insulin Aspart Per Unit) 0 units SC ACHS [facility] Stop: 07/02/22 17:09 Last Admin: 06/03/22 12:12 Dose: 2 units Documented By: DAVID Co-signed By: DAVID(2) Admin: 06/03/22 08:59 Dose: 3 units Documented By: DAVID Co-signed By: KRISTINA Admin: 06/02/22 21:13 Dose: 3 units Documented By: PRECIOUS Co-signed By: KOLTON Admin: 06/02/22 18:00 Dose: 3 units Documented By: CYNDIE Co-signed By: KRISTINA Isosorbide Mononitrate (Isosorbide [place] Extended Rel 60 Mg Tabcr) 60 mg PO DAILY [facility] Stop: 07/03/22 08:59 Last Admin: 06/03/22 09:33 Dose: 60 mg Documented By: DAVID Methylprednisolone (Methylprednisolone 125 Mg/2 Ml Vial) 125 mg IV NOW STA Stop: 06/02/22 08:24 Last Admin: 06/02/22 08:55 Dose: 125 mg Documented By: MONICA Metoprolol Succinate (Metoprolol Succ 50mg Ext Rel Tab) 50 mg PO HS [facility] Stop: 07/02/22 20:59 Last Admin: 06/02/22 21:09 Dose: 50 mg Documented By: PRECIOUS Ropinirole HCl (Ropinirole Hcl 0.25 Mg Tablet) 0.5 mg PO HS [facility] Stop: 07/02/22 20:59 Last Admin: 06/02/22 21:09 Dose: 0.5 mg Documented By: PRECIOUS Rosuvastatin Calcium (Rosuvastatin Calcium 10 Mg Tab) 10 mg PO [facility] Stop: 07/02/22 20:59 Last Admin: 06/02/22 21:09 Dose: 10 mg Documented By: PRECIOUS Imaging Data Radiologist's Impression: Chest X-Ray 06/02/22 08:18 XR chest 1V portable CLINICAL HISTORY: weakness TECHNIQUE: Single frontal radiograph of the chest was obtained. 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 Calcified aortic knob is seen. The lungs are clear. No evidence of pleural effusion or pneumothorax. IMPRESSION: No acute chest disease. ACT 112: Negative or not required by law. Electronically signed by: Portillo Del Rio M.D. 06/02/2022 8:47 AM Abdomen/Pelvis CT 06/02/22 10:41 CT OF THE ABDOMEN AND PELVIS WITHOUT CONTRAST CLINICAL HISTORY: Abdominal pain, acute renal insufficiency COMPARISON STUDY: CT of the abdomen pelvis May 22, 2021. Right upper quadrant ultrasound May 26, 2022. TECHNIQUE: Axial images of the abdomen and pelvis were obtained without IV contrast. Images were reviewed in the axial, sagittal, and coronal planes. Automated exposure control was utilized for the study. A dose lowering technique was utilized adhering to the principles of ALARA. FINDINGS: Lung bases are unremarkable. No pneumatosis, free air or portal venous gas is present. There is no hydronephrosis. There are no ureteral calculi. A 2 mm calcification within left renal sinus is noted. This could reflect a nonobstructing calculus or a vascular calcification. This is unchanged. Evaluation of the abdomen and pelvis is suboptimal on this unenhanced exam. The liver, spleen, adrenal glands and pancreas are unremarkable. There is no biliary or pancreatic ductal dilatation. No peripancreatic or pericholecystic stranding is present. There is no evidence for a bowel obstruction. Colonic diverticulosis is noted without evidence for acute diverticulitis. Appendix is normal. Moderate sized hiatal hernia is present. There may be subtle stranding adjacent to several jejunal loops. No acute fracture or suspicious lesion within visualized skeletal structures. There is mild dextroscoliosis of the lumbar spine. IMPRESSION: 1. Mild stranding adjacent to several jejunal loops. This may reflect a mild nonspecific enteritis. 2. No ureteral calculi or hydronephrosis. No change in a 2 mm left renal sinus calcification which could reflect a nonobstructing calculus or vascular calcification. 3. Colonic diverticulosis. No evidence for acute diverticulitis. Normal appendix. 4. No bowel obstruction. ACT 112: Negative or not required by law. Electronically signed by: Eulogio Mooney M.D. 06/02/2022 12:16 PM Discharge Plan Visit Data Chief Complaint: Abdominal Pain Stated Complaint: AB PAIN ED Provider: Keiko Dumont Discharge Problem: Acute dehydration, MARIAMA (acute kidney injury), Weakness generalized, Fall as cause of accidental injury at home as place of occurrence, Unable to ambulate Patient Disposition: Admitted As Inpatient Discharge Instructions Interventions: ED Discharge Assessment Last Done: 06/02/22 16:35
[2022-06-02] MEDS ORDERED: SODIUM CHLORIDE 0.9% 1000ML 1,000 ML IV SCH ×2 (13:30→17:10)
--- NOTE | 2022-06-02 14:14 | History & Physical Report ---
Date of Service June 02, 2022 Assessment & Plan (1) Enteritis: Plan: Timing of onset and symptoms is difficult to ascertain as patient claims that she had these prior to her admission but also denies most symptoms while in hospital on recent admission Admit to monitored bed Conservative treatment, can treat nausea and vomiting symptomatically Will send stool studies, C. difficile We will hold antibiotics for now (2) ARF (acute renal failure): Plan: Likely etiology of her orthostasis and weakness Likely secondary to dehydration Will gently hydrate with normal saline Continue to follow laboratory work Hold ARB and diuretic Consider nephrology consultation if no improvement over 24 hours (3) Chronic diastolic (congestive) heart failure: Plan: Hold ARB and diuretic as noted above Continue metoprolol with hold parameters Continue Crestor or pharmacy equivalent (4) Type 2 diabetes mellitus: Plan: Continue Januvia and metformin On sliding scale insulin Diabetic diet. Patient does feel that she is able to eat solid food but would consider downgrading if has continued nausea and vomiting (5) Neck pain: Plan: Complaining of some radicular pain, unclear what this may be. Sounds longs tanding I will check plain C-spine films. I can be addressed by PT/OT, will likely need to follow-up on outpatient basis for further investigation Plan Patient does not have a living will advance directive, will keep patient full code for now. Hold chemical DVT prophylaxis, patient reporting allergy to pork products (heparin?) History of Present Illness Chief Complaint: Generalized weakness Primary Care Provider: Nicholas Casey MD This is an 81-year-old female with past medical history of CAD, type 2 diabetes mellitus, GERD who was admitted here from for CHF exacerbation that pres ents today with generalized weakness. Patient is a somewhat difficult historian. Accompanied in room but not much more history being obtained by significant other. Patient was mostly complaining about pain in her neck. This was in the right side I was radiation down to her right arm. There are also some radiation to her neck. However, on further questioning she admitted this is not the reason for her visit. My understanding is that she was significantly weak after her discharge. On further questioning, she admits to diminished appetite and diarrhea over the past week. She tells me that the symptoms preceded her first admission but also either she did not have symptoms or did not eat much during her hospitalization and therefore did not have any symptoms of this while here. ER documentation notes that the patient had a fall earlier today after becoming dizzy and that this is why EMS was called. Patient does appear to be weak. On direct questioning, she does note that she has ongoing diarrhea despite being able to eat yesterday. Chart was reviewed which revealed elevated creatinine along with some fat stranding around the jejunum on CT, concerning for enteritis. For these reasons patient is being admitted for further treatment. Allergies Allergy/AdvReac Type Severity Reaction Status Date / Time Penicillins Allergy Intermediate pruritis, Verified 05/26/22 19:30 swelling of extremeties amoxicillin Allergy Mild Rash Verified 05/26/22 19:30 Iodinated Contrast Media Allergy Unknown History Verified 05/26/22 19:30 topical iodine allergy iodine Allergy Unknown pruritis, Verified 05/26/22 19:30 contact dermatitis pork derived (porcine) Allergy Unknown unknown Verified 05/26/22 19:30 thimerosal Allergy Unknown unknown Verified 05/26/22 19:30 atorvastatin AdvReac Intermediate Upset Verified 05/26/22 19:30 stomach, diarrhea diazepam AdvReac Unknown Nausea and Verified 05/26/22 19:30 hyperactive lisinopril AdvReac Unknown Nausea Verified 05/26/22 19:30 meclofenamic acid AdvReac Unknown Diarrhea Verified 05/26/22 19:30 naproxen AdvReac Unknown NAUSEA Verified 05/26/22 19:30 mcclomen Allergy Mild GI SYMPTOMS Uncoded 05/26/22 19:30 Flu Virus Vaccine Allergy Unknown unknown Uncoded 05/26/22 19:30 Naproxen AdvReac Unknown Gastrointestinal Uncoded 05/26/22 19:30 Upset Home Medications Medication Instructions Recorded Confirmed Type aspirin 81 mg tablet,delayed 81 mg PO QAM #30 tabs 02/02/20 05/26/22 Rx release cholecalciferol (vitamin D3) 50 2,000 units PO QAM 04/29/20 05/26/22 History mcg (2,000 unit) capsule telmisartan 20 mg tablet 20 mg PO QAM 04/29/20 05/26/22 History ropinirole 0.5 mg tablet 0.5 mg PO HS 07/22/20 05/26/22 History sitagliptin 100 mg tablet (Januvia) 100 mg PO QAM 12/01/20 05/26/22 History oxycodone-acetaminophen 5 mg-325 1 tab PO Q6H PRN pain #8 tabs 05/23/21 05/26/22 Rx mg tablet (Percocet) allopurinol 100 mg tablet 200 mg PO QAM 09/03/21 05/26/22 History ferrous sulfate 325 mg (65 mg 325 mg PO DAILY 09/03/21 05/26/22 History iron) tablet,delayed release metformin 500 mg tablet,extended 500 mg PO QAM 09/03/21 05/26/22 History release 24 hr nitroglycerin 0.4 mg sublingual 0.4 mg sublingual DIRECTED PRN 10/07/21 05/26/22 Rx tablet (Nitrostat) Chest Pain #60 tabs metoprolol succinate 50 mg 50 mg PO HS #90 tabs 02/24/22 05/26/22 Rx tablet,extended release 24 hr Saccharomyces boulardii [Daily 1 tab PO DAILY 04/15/22 05/26/22 History Probiotic (S. boulardii)] torsemide 5 mg tablet 2.5 mg PO DAILY 04/15/22 05/26/22 History isosorbide mononitrate 60 mg 60 mg PO DAILY #30 tabs 04/16/22 05/26/22 Rx tablet,extended release 24 hr metformin 500 mg tablet,extended 1,000 mg PO QPM 05/26/22 05/26/22 History release 24 hr rosuvastatin 10 mg tablet 10 mg PO HS 05/26/22 05/26/22 History Past Med/Surg History Medical History CAD (coronary artery disease) S/p MORENA 01/31/20 to mid LAD Claustrophobia GERD (gastroesophageal reflux disease) [place] (hard of hearing) VERY-NO AIDS HTN (hypertension) Kidney stones Mixed hyperlipidemia Myocardial infarction 01/2020 FELICE (obstructive sleep apnea) CPAP Osteoarthritis Prediabetes Would consider patient diabetic= Hgb A1C 7.7 on 02/01/20; pt also on Januvia and Metformin Scoliosis Spinal stenosis Surgical History History of bladder suspension procedure History of cardiac cath 01/2020 - [facility] - 1 stent - follows w/ Dr. Dailey History of colonoscopy History of esophagogastroduodenoscopy (EGD) History of total shoulder replacement b/l S/P carpal tunnel release BL S/P cataract extraction b/l S/P foot surgery Left x 2, Right x 3 S/P repair of ventral hernia laparascopic x 2 S/P sinus surgery S/P CARRI (total abdominal hysterectomy) S/P tonsillectomy Slow to wake up after anesthesia Total knee replacement status right Family History Father , in 90s from AAA AAA (abdominal aortic aneurysm) Stroke Family history of diabetes mellitus Mother , in her 70s Lung cancer Hypertension Aunt Family history of diabetes mellitus Denies family history of Coronary heart disease Social History Smoking Status: Never smoker Second Hand Exposure: No; Hx Alcohol Use: Yes Alcohol type: wine Hx Substance Use: No Preferred Language: Georgian Communication Ability: Effective Hearing Ability: Hard of Hearing 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: No Beliefs That Will Affect Care: None marital status: marital status details: 2 children Current Living Situation: Spouse Current Living Situation Comment: house current occupational status: retired 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[employer]; [employer]; 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; 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 Feels Safe at Home: Yes Physical Activity Frequency: Does not Exercise Assistive Devices: Cane and CPAP Review of Systems Constitutional: + weakness and + anorexia; no fever, no chills, no weight loss and no weight gain Eyes: as per Subjective / HPI Respiratory: no cough, no chest congestion, no dyspnea and no dyspnea on exertion Cardiovascular: + orthopnea and + lightheadedness; no chest pain, no dyspnea, no palpitations and no edema Gastrointestinal: + abdominal pain and + diarrhea/loose stools; no belching, no heartburn, no nausea, no vomiting, no dysphagia, no constipation and no blood in stools Genitourinary: no dysuria, no difficulty urinating, no urinary frequency, no urinary hesitancy, no urinary urgency and no flank pain Musculoskeletal: + neck pain and + radicular pain; no back pain, no joint pain, no stiffness and no myalgia Integumentary: no rash Neurologic: no gait abnormality, no unsteadiness, no falls and no generalized weakness Physical Exam Constitutional: cooperative; no acute distress Neck: trachea midline, no thyromegaly Respiratory: normal respiratory effort Auscultation: lungs clear to auscul tation bilaterally; no crackles, no rales, no rhonchi and no wheezes Cardiovascular: Rate/Rhythm: regular rate and regular rhythm Heart Sounds: normal S1 and normal S2 Gastrointestinal (Abdomen): Inspection/Auscultation: abdomen normal to inspection Percussion/Palpation: abdomen soft; abdomen nontender, no guarding, abdomen not rigid and no hepatosplenomegaly Skin: no rashes, warm and dry Results & Data Results & Data ([facility]) Vital Signs (Past 12 Hours) Vital Signs Temp Pulse Pulse Resp BP BP Pulse Ox 06/02/22 13:00 79 18 147/78 H 95 06/02/22 09:00 68 20 132/85 94 06/02/22 08:34 60 24 99 06/02/22 07:48 36.9 C 60 25 H 146/62 H 98 06/02/22 07:48 36.9 C 60 25 H 146/62 H 96 O2 Del Method 06/02/22 13:00 Room Air 06/02/22 09:00 Room Air 06/02/22 08:34 Room Air 06/02/22 07:48 Room Air 06/02/22 07:48 Room Air Laboratory Results Laboratory Results WBC 7.54 K/ul (4.8-10.8) 06/02/22 09:00 RBC 4.17 M/uL (3.93-5.22) 06/02/22 09:00 Hgb 11.2 g/dl (12.0-16.0) L 06/02/22 09:00 Hct 35.5 % (34.1-44.9) 06/02/22 09:00 MCV 85.1 fL (80.0-100.0) 06/02/22 09:00 MCH 26.9 pg (25.0-34.0) 06/02/22 09:00 MCHC 31.5 g/dL (32.0-36.0) L 06/02/22 09:00 RDW Std Deviation 47.6 fL (36.4-46.3) H 06/02/22 09:00 RDW Coeff of Angelina 15.5 % (11.5-14.5) H 06/02/22 09:00 Plt Count 356 K/uL (130-400) 06/02/22 09:00 MPV 9.7 fL (9.4-12.3) 06/02/22 09:00 Immature Gran % (Auto) 0.7 % 06/02/22 09:00 Neut % (Auto) 72.7 % 06/02/22 09:00 Lymph % (Auto) 16.8 % 06/02/22 09:00 [place] % (Auto) 8.6 % 06/02/22 09:00 Eos % (Auto) 0.9 % 06/02/22 09:00 Baso % (Auto) 0.3 % 06/02/22 09:00 Neut # (Auto) 5.48 K/uL (1.4-6.5) 06/02/22 09:00 Lymph # (Auto) 1.27 K/uL (1.2-3.4) 06/02/22 09:00 [place] # (Auto) 0.65 K/uL (0.24-0.82) 06/02/22 09:00 Eos # (Auto) 0.07 K/uL (0-0.50) 06/02/22 09:00 Baso # (Auto) 0.02 K/uL (0-0.2) 06/02/22 09:00 Immature Gran # (Auto) 0.05 K/uL (0.00-0.02) H 06/02/22 09:00 Sodium 138 mmol/L (136-145) 06/02/22 09:00 Potassium 4.5 mmol/L (3.5-5.1) 06/02/22 09:00 Chloride 102 mmol/L (98-107) 06/02/22 09:00 Carbon Dioxide 26 mmol/L (21-32) 06/02/22 09:00 Anion Gap 10 (3-11) 06/02/22 09:00 BUN 53 mg/dl (6-23) H 06/02/22 09:00 Creatinine 2.19 mg/dl (0.6-1.2) H 06/02/22 09:00 Est Cr Clr Drug Dosing 20.8 ml/min 06/02/22 09:00 Est GFR ( Amer) 23.4 ml/min 06/02/22 09:00 Est GFR (Non-Af Amer) 20.2 ml/min 06/02/22 09:00 BUN/Creatinine Ratio 24.2 (10-20) H 06/02/22 09:00 Glucose 131 mg/dl (70-99(Fasting)) H 06/02/22 09:00 POC Glucose 135 mg/dl (70-99) H 06/02/22 08:30 Calcium 9.8 mg/dl (8.5-10.1) 06/02/22 09:00 Total Bilirubin 0.5 mg/dl (0.2-1.0) 06/02/22 09:00 AST 17 U/L (13-39) 06/02/22 09:00 ALT 13 U/L (7-52) 06/02/22 09:00 Alkaline Phosphatase 63 U/L (34-104) 06/02/22 09:00 Total Protein 7.3 gm/dl (6.0-8.3) 06/02/22 09:00 Albumin 3.8 gm/dl (3.4-5.0) 06/02/22 09:00 Globulin 3.5 gm/dl (2.5-4.0) 06/02/22 09:00 Albumin/Globulin Ratio 1.1 (0.9-2) 06/02/22 09:00 TSH 5.681 uIu/ml (0.300-4.500) H 06/02/22 09:00 Free T4 1.16 ng/dl (0.61-1.60) 06/02/22 09:00 Urine Color Dark Yellow 06/02/22 08:00 Urine Appearance Cloudy (Clear) A 06/02/22 08:00 Urine pH 5.0 (4.5-7.5) 06/02/22 08:00 Ur Specific [place] 1.024 (1.000-1.030) 06/02/22 08:00 Urine Protein 1+ (Negative) H 06/02/22 08:00 Urine Glucose (UA) Negative (Negative) 06/02/22 08:00 Urine Ketones Trace (Negative) H 06/02/22 08:00 Urine Blood Negative (Negative) 06/02/22 08:00 Urine Nitrite Negative (Negative) 06/02/22 08:00 Urine Bilirubin 1+ (Negative) H 06/02/22 08:00 Urine Urobilinogen Negative (Negative) 06/02/22 08:00 Ur Leukocyte Esterase Negative (Negative) 06/02/22 08:00 Urine WBC (Auto) 5-10 /hpf (0-5) H 06/02/22 08:00 Urine RBC (Auto) 5-10 /hpf (0-4) H 06/02/22 08:00 U Hyaline Cast (Auto) 5-10 /lpf (0-5) H 06/02/22 08:00 U Epithel Cells (Auto) >30 /lpf (0-5) H 06/02/22 08:00 Urine Bacteria (Auto) 1+ (Negative) H 06/02/22 08:00 Ur Renal Epithelial Cell Not Reportable 06/02/22 08:00 SARS-CoV-2, RNA, NAAT NEGATIVE (NEGATIVE) 06/02/22 08:30 Impressions Chest X-Ray 06/02/22 08:18 XR chest 1V portable CLINICAL HISTORY: weakness TECHNIQUE: Single frontal radiograph of the chest was obtained. 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 Calcified aortic knob is seen. The lungs are clear. No evidence of pleural effusion or pneumothorax. IMPRESSION: No acute chest disease. ACT 112: Negative or not required by law. Electronically signed by: Portillo Del Rio M.D. 06/02/2022 8:47 AM Abdomen/Pelvis CT 06/02/22 10:41 CT OF THE ABDOMEN AND PELVIS WITHOUT CONTRAST CLINICAL HISTORY: Abdominal pain, acute renal insufficiency COMPARISON STUDY: CT of the abdomen pelvis May 22, 2021. Right upper quadrant ultrasound May 26, 2022. TECHNIQUE: Axial images of the abdomen and pelvis were obtained without IV contrast. Images were reviewed in the axial, sagittal, and coronal planes. Automated exposure control was utilized for the study. A dose lowering technique was utilized adhering to the principles of ALARA. FINDINGS: Lung bases are unremarkable. No pneumatosis, free air or portal venous gas is present. There is no hydronephrosis. There are no ureteral calculi. A 2 mm calcification within left renal sinus is noted. This could reflect a nonobstructing calculus or a vascular calcification. This is unchanged. Evaluation of the abdomen and pelvis is suboptimal on this unenhanced exam. The liver, spleen, adrenal glands and pancreas are unremarkable. There is no biliary or pancreatic ductal dilatation. No peripancreatic or pericholecystic stranding is present. There is no evidence for a bowel obstruction. Colonic diverticulosis is noted without evidence for acute diverticulitis. Appendix is normal. Moderate sized hiatal hernia is present. There may be subtle stranding adjacent to several jejunal loops. No acute fracture or suspicious lesion within visualized skeletal structures. There is mild dextroscoliosis of the lumbar spine. IMPRESSION: 1. Mild stranding adjacent to several jejunal loops. This may reflect a mild nonspecific enteritis. 2. No ureteral calculi or hydronephrosis. No change in a 2 mm left renal sinus calcification which could reflect a nonobstructing calculus or vascular calcification. 3. Colonic diverticulosis. No evidence for acute diverticulitis. Normal appendix. 4. No bowel obstruction. ACT 112: Negative or not required by law. Electronically signed by: Eulogio Mooney M.D. 06/02/2022 12:16 PM PG Care Time/CCT Total # of Minutes Spent Total Time Spent with Patient: Total time spent is greater than 50% in coordination of care (as documented) at patient's floor/unit and/or counseling patient: Coding Level of Care Code 62176 Initial Inpt Care Lvl 3 Diagnoses Enteritis K52.9 ARF (acute renal failure) N17.9 Chronic diastolic (congestive) heart failure I50.32 Type 2 diabetes mellitus E11.9 Neck pain M54.2
[2022-06-02] MEDS ORDERED: ONDANSETRON INJ 2 MG/ML 2 ML VIAL IV PRN (17:10)
[2022-06-02] MEDS ORDERED: GLUCOSE 40% GEL 15 GM TUBE PO PRN (17:10)
[2022-06-02] MEDS ORDERED: CARBOHYDRATES FOR HYPOGLYCEMIA PO PRN (17:10)
[2022-06-02] MEDS ORDERED: GLUCOSE 10 TAB/TUBE PO PRN (17:10)
[2022-06-02] MEDS ORDERED: GLUCAGON FOR INJ 1 MG VIAL SQ PRN (17:10)
[2022-06-02] MEDS ORDERED: ACETAMINOPHEN 325 MG TAB PO PRN (17:10)
[2022-06-02] MEDS ORDERED: DEXTROSE 50% 50 ML SYRINGE IV PRN (17:10)
[2022-06-02] MEDS: SODIUM CHLORIDE 0.9% 1000ML 1,000 ML IV SCH (17:39)
[2022-06-02] MEDS: INSULIN ASPART PER UNIT SC SCH ×2 (18:00→21:13)
[2022-06-02] MEDS ORDERED: metFORMIN HCL ER 500 MG TABCR PO SCH (21:00)
[2022-06-02] MEDS ORDERED: ROSUVASTATIN CALCIUM 10 MG TAB PO SCH (21:00)
[2022-06-02] MEDS ORDERED: rOPINIRole HCL 0.25 MG TABLET PO SCH (21:00)
[2022-06-02] MEDS ORDERED: METOPROLOL SUCC 50MG EXT REL TAB PO SCH (21:00)
--- NOTE | 2022-06-02 21:07 | XRay Report ---
XR cervical spine w flex/ext HISTORY: 81 years-old Female neck pain acute neck pain without reported trauma COMPARISON: 06/05/2012 TECHNIQUE: 3 radiographic views of the cervical spine FINDINGS: Shoulder arthroplasties. Imaged lung martin appear clear. Demineralized appearance the bones. Straightening of the normal cervical lordosis. Moderate multileve l intervertebral disc space narrowing with moderate spondylitic spurring and facet arthrosis. There i s severe facet arthropathy at C7-T1. 3 mm anterolisthesis C7 on T1 is unchanged with neutral, flexion and extension. 2 mm anterolisthesis C2 on C3 is also unchanged with position. There is at least mode rate multilevel bilateral neural foraminal narrowing, suboptimally visualized secondary to positionin g. IMPRESSION: 1. No acute fracture or subluxation. 2. Moderate to severe degenerative changes of the cervical spine as above, progressed from 05/26/2012. 3. Grade 1 anterolisthesis C2 on C3 and C6 on C7 is likely secondary to chronic facet arthrosis. ACT 112: Negative or not required by law. The above report was generated using voice recognition software. It may contain grammatical, syntax o r spelling errors. Electronically signed by: Jesse Kelly M.D. 06/02/2022 9:05 PM
[2022-06-03] MEDS: SODIUM CHLORIDE 0.9% 1000ML 1,000 ML IV SCH (05:42)
[2022-06-03 08:24] LABS: Basophils # (auto) 0.02 K/uL (0-0.2); Basophils % (auto) 0.2 %; Hemoglobin 11.4 g/dl (12.0-16.0); Immature Granulocytes # (auto) 0.09 K/uL (0.00-0.02); Immature Granulocytes % (auto) 0.8 %; Lymphocytes # (auto) 0.86 K/uL (1.2-3.4); Lymphocytes % (auto) 7.9 %; Mean Corpuscular Hemoglobin 26.5 pg (25.0-34.0); Mean Corpuscular Hgb Conc 30.8 g/dL (32.0-36.0); Mean Platelet Volume 9.6 fL (9.4-12.3); Monocytes # (auto) 0.54 K/uL (0.24-0.82); Monocytes % (auto) 4.9 %; Neutrophils # (auto) 9.43 K/uL (1.4-6.5); Neutrophils % (auto) 86.2 %; Platelet Count 392 K/uL (130-400); RDW Coefficient of Variation 15.6 % (11.5-14.5); White Blood Count 10.94 K/ul (4.8-10.8)
[2022-06-03 08:57] LABS: BUN Creatinine Ratio 41.8 (10-20); Calcium 9.1 mg/dl (8.5-10.1); Creatinine Clr Calc Pharmacy 41.3 ml/min; Est GFR (African American) 53.8 ml/min; Est GFR (Non-African American) 46.4 ml/min; Potassium 4.6 mmol/L (3.5-5.1)
[2022-06-03] MEDS: INSULIN ASPART PER UNIT SC SCH ×2 (08:59→12:12)
[2022-06-03] MEDS ORDERED: SITagliptin PHOSPHATE 100 MG TAB PO SCH (09:00)
[2022-06-03] MEDS ORDERED: metFORMIN HCL ER 500 MG TABCR PO SCH (09:00)
[2022-06-03] MEDS ORDERED: ISOSORBIDE MONO EXTENDED REL 60 MG TABCR PO SCH (09:00)
[2022-06-03] MEDS ORDERED: allopurinoL 100 MG TAB PO SCH (09:00)
[2022-06-03] MEDS ORDERED: ASPIRIN 81 MG ECTAB PO SCH (09:00)
--- NOTE | 2022-06-03 10:27 | Discharge Summary ---
Date of Service June 03, 2022 Admission HPI Per Admitting Provider This is an 81-year-old female with past medical history of CAD, type 2 diabetes mellitus, GERD who was admitted here from for CHF exacerbation that presents today with generalized weakness. Patient is a somewhat difficult historian. Accompanied in room but not much more history being obtained by significant other. Patient was mostly complaining about pain in her neck. This was in the right side I was radiation down to her right arm. There are also some radiation to her neck. However, on further questioning she admitted this is not the reason for her visit. My understanding is that she was significantly weak after her discharge. On further questioning, she admits to diminished appetite and diarrhea over the past week. She tells me that the symptoms preceded her first admission but also either she did not have symptoms or did not eat much during her hospitalization and therefore did not have any symptoms of this while here. ER documentation notes that the patient had a fall earlier today after becoming dizzy and that this is why EMS was called. Patient does appear to be weak. On direct questioning, she does note that she has ongoing diarrhea despite being able to eat yesterday. Chart was reviewed which revealed elevated creatinine along with some fat stranding around the jejunum on CT, concerning for enteritis. For these reasons patient is being admitted for further treatment. Principal Diagnosis 1. Enteritis 2. MARIAMA due to dehydration-resolved Discharge Exam GENERAL: 81 yo Well-developed, well-nourished WF. NAD. LUNGS: Clear to auscultation bilaterally. No W/R/R. CARDIOVASCULAR: Regular rate and rhythm. No M/G/R. No JVD. ABDOMEN: Soft, non-tender and non-distended. BS normoactive x 4 quad. EXTREMITIES: No edema. Non-tender. Peripheral pulses +2/4. NEUROLOGIC: A&O x3. Nonfocal PSYCHIATRIC: Cooperative. Appropriate mood and affect. SKIN: Warm, dry, intact. No rashes or lesions. Discharge Data Allergies Allergy/AdvReac Type Severity Reaction Status Date / Time Penicillins Allergy Intermediate pruritis, Verified 06/02/22 16:13 swelling of extremeties amoxicillin Allergy Mild Rash Verified 06/02/22 16:13 Iodinated Contrast Media Allergy Unknown History Verified 06/02/22 16:13 topical iodine allergy iodine Allergy Unknown pruritis, Verified 06/02/22 16:13 contact dermatitis pork derived (porcine) Allergy Unknown unknown Verified 06/02/22 16:13 thimerosal Allergy Unknown unknown Verified 06/02/22 16:13 atorvastatin AdvReac Intermediate Upset Verified 06/02/22 16:13 stomach, diarrhea diazepam AdvReac Unknown Nausea and Verified 06/02/22 16:13 hyperactive lisinopril AdvReac Unknown Nausea Verified 06/02/22 16:13 meclofenamic acid AdvReac Unknown Diarrhea Verified 06/02/22 16:13 naproxen AdvReac Unknown NAUSEA Verified 06/02/22 16:13 mcclomen Allergy Mild GI SYMPTOMS Uncoded 06/02/22 16:13 Flu Virus Vaccine Allergy Unknown unknown Uncoded 06/02/22 16:13 Naproxen AdvReac Unknown Gastrointestinal Uncoded 06/02/22 16:13 Upset Ordered Studies Chest X-Ray 06/02/22 08:18 XR chest 1V portable CLINICAL HISTORY: weakness TECHNIQUE: Single frontal radiograph of the chest was obtained. 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 Calcified aortic knob is seen. The lungs are clear. No evidence of pleural effusion or pneumothorax. IMPRESSION: No acute chest disease. ACT 112: Negative or not required by law. Electronically signed by: Portillo Del Rio M.D. 06/02/2022 8:47 AM Abdomen/Pelvis CT 06/02/22 10:41 CT OF THE ABDOMEN AND PELVIS WITHOUT CONTRAST CLINICAL HISTORY: Abdominal pain, acute renal insufficiency COMPARISON STUDY: CT of the abdomen pelvis May 22, 2021. Right upper quadrant ultrasound May 26, 2022. TECHNIQUE: Axial images of the abdomen and pelvis were obtained without IV contrast. Images were reviewed in the axial, sagittal, and coronal planes. Automated exposure control was utilized for the study. A dose lowering technique was utilized adhering to the principles of ALARA. FINDINGS: Lung bases are unremarkable. No pneumatosis, free air or portal venous gas is present. There is no hydronephrosis. There are no ureteral calculi. A 2 mm calcification within left renal sinus is noted. This could reflect a nonobstructing calculus or a vascular calcification. This is unchanged. Evaluation of the abdomen and pelvis is suboptimal on this unenhanced exam. The liver, spleen, adrenal glands and pancreas are unremarkable. There is no biliary or pancreatic ductal dilatation. No peripancreatic or pericholecystic stranding is present. There is no evidence for a bowel obstruction. Colonic diverticulosis is noted without evidence for acute diverticulitis. Appendix is normal. Moderate sized hiatal hernia is present. There may be subtle stranding adjacent to several jejunal loops. No acute fracture or suspicious lesion within visualized skeletal structures. There is mild dextroscoliosis of the lumbar spine. IMPRESSION: 1. Mild stranding adjacent to several jejunal loops. This may reflect a mild nonspecific enteritis. 2. No ureteral calculi or hydronephrosis. No change in a 2 mm left renal sinus calcification which could reflect a nonobstructing calculus or vascular calcification. 3. Colonic diverticulosis. No evidence for acute diverticulitis. Normal appendix. 4. No bowel obstruction. ACT 112: Negative or not required by law. Electronically signed by: Eulogio Mooney M.D. 06/02/2022 12:16 PM Spine Flexion/Extension X-Ray 06/02/22 14:31 XR cervical spine w flex/ext HISTORY: 81 years-old Female neck pain acute neck pain without reported trauma COMPARISON: 06/05/2012 TECHNIQUE: 3 radiographic views of the cervical spine FINDINGS: Shoulder arthroplasties. Imaged lung martin appear clear. Demineralized appearance the bones. Straightening of the normal cervical lordosis. Moderate multilevel intervertebral disc space narrowing with moderate spondylitic spurring and facet arthrosis. There is severe facet arthropathy at C7-T1. 3 mm anterolisthesis C7 on T1 is unchanged with neutral, flexion and extension. 2 mm anterolisthesis C2 on C3 is also unchanged with position. There is at least moderate multilevel bilateral neural foraminal narrowing, suboptimally visualized secondary to positioning. IMPRESSION: 1. No acute fracture or subluxation. 2. Moderate to severe degenerative changes of the cervical spine as above, progressed from 05/26/2012. 3. Grade 1 anterolisthesis C2 on C3 and C6 on C7 is likely secondary to chronic facet arthrosis. ACT 112: Negative or not required by law. The above report was generated using voice recognition software. It may contain grammatical, syntax or spelling errors. Electronically signed by: Jesse Kelly M.D. 06/02/2022 9:05 PM Hospital Course (1) Enteritis: Timing of onset and symptoms is difficult to ascertain as patient claims that she had these prior to her admission but also denies most symptoms while in hospital on recent admission Admitted to monitored bed Conservative treatment, can treat nausea and vomiting symptomatically Stool for c. diff ordered but not collected as pt has been w/o diarrhea since admission Likely something viral vs. something she ate which exacerbated her diarrhea (2) ARF (acute renal failure): Likely etiology of her orthostasis and weakness Likely secondary to dehydration Hydrated overnight with NSS - renal fxn normalized ARB and diuretic held which can be resumed as outpatient (3) Chronic diastolic (congestive) heart failure: Held ARB and diuretic as noted above but can resume upon d/c Continue metoprolol with hold parameters Continued on statin therapy (4) Type 2 diabetes mellitus: Continue Januvia and metformin On sliding scale insulin Diabetic diet provided (5) Neck pain: Complaining of some radicular pain, unclear what this may be. Sounds longstanding c-spine films obtained, degenerative changes noted can use asa as needed for pain and if not relieved can use prescribed percocet can be referred to pt as outpatient can also use warm compress PRN (20 min intervals max) Plan She is medically and hemodynamically stable for discharge home today. Follow up with pcp within 1 week of discharge. Plan has been d/w Dr. Javier who agrees. Total Time Total Time Spent Total Time Spent (In Minutes): >30 minutes Discharge Plan Discharge Items Patient Disposition: Home - Self-Care Reason For Visit: WEAKNESS Discharge Diagnosis: weakness, dehydration Activity: Resume your previous activity Non-emergency contact: Primary Care Provider Call non-emergency contact if: you have any medication questions and your symptoms worsen Follow-up/Referrals: Nicholas Casey MD [Primary Care Provider] - Diet: Carb Consistent or DM2 Addtl Attending Provider Instructions: you were hospitalized due to weakness likely resulting from diarrhea causing dehydration. you were given IV fluids overnight and your kidney function which was decreased slightly due to dehydration has normalized. you also underwent a neck xray which showed some degenerative changes consistent with arthritis. As discussed, you can take over the counter Aspirin 325mg every 4 hours as needed for neck pain. If Aspirin does not relieve your pain, you can use your prescribed Percocet. it is recommended that you follow up with your primary care provider within 1 week of discharge. if you have any questions following your discharge, feel free to contact the nonemergency number listed on your discharge paperwork. in the event of a medical emergency, call 911. Pending Studies at Discharge: No Stand-Alone Forms: My [facility], Smoking Cessation Medications and DC Order Prescriptions: Continued nitroglycerin [Nitrostat] 0.4 mg tablet, sublingual 0.4 mg sublingual DIRECTED PRN (Reason: Chest Pain) Qty: 60 3RF Rx Instructions: Place one tablet under the tongue every 5 minutes for up to 3 doses over 15 minutes if needed for chest pain. If unrelieved or worsened 3-5 minutes after 1 dose, call isosorbide mononitrate 60 mg tablet extended release 24 hr 60 mg PO DAILY Qty: 30 6RF ropinirole 0.5 mg tablet 0.5 mg PO HS ferrous sulfate 325 mg (65 mg iron) tablet,delayed release (DR/EC) 325 mg PO DAILY Saccharomyces boulardii [Daily Probiotic (S. boulardii)] 1 tab PO DAILY torsemide 5 mg tablet 2.5 mg PO DAILY telmisartan 20 mg tablet 20 mg PO QAM cholecalciferol (vitamin D3) 50 mcg (2,000 unit) capsule 2,000 units PO QAM metoprolol succinate 50 mg tablet extended release 24 hr 50 mg PO HS Qty: 90 3RF aspirin 81 mg Tablet,Delayed Release (Dr/Ec) 81 mg PO QAM Qty: 30 0RF Januvia 100 mg tablet 100 mg PO QAM metformin 500 mg tablet extended release 24 hr 500 mg PO QAM Rx Instructions: 500 mg PO QAM, 1000mg QPM allopurinol 100 mg tablet 200 mg PO QAM oxycodone-acetaminophen [Percocet] 5-325 mg tablet 1 tab PO Q6H PRN (Reason: pain) Qty: 8 0RF rosuvastatin 10 mg tablet 10 mg PO HS metformin 500 mg tablet extended release 24 hr 1,000 mg PO QPM Discharge Orders: Discharge Order (Routine); Ordered 06/03/22 Ordered By: Elsie Santillan/Other Patient Handouts: Managing Type 2 Diabetes Admission Data Admit Date/Time: 06/02/22 14:31 Attending Provider: Figueroa Javier Admit Provider: Kevon Dye Primary Care Provider: Nicholas Casey Coding Level of Care Code D/C DAY MANAGEMENT >30 MINS Diagnoses Enteritis K52.9 ARF (acute renal failure) N17.9 Chronic diastolic (congestive) heart failure I50.32 Type 2 diabetes mellitus E11.9 Neck pain M54.2
--- NOTE | 2022-06-04 05:24 | Electrocardiogram Report ---
Test Reason : Blood Pressure : / mmHG Vent. Rate : 062 BPM Atrial Rate : 062 BPM P-R Int : 142 ms QRS Dur : 094 ms QT Int : 464 ms P-R-T Axes : 050 -06 059 degrees QTc Int : 470 ms Sinus rhythm with Premature atrial complexes Possible Left atrial enlargement Incomplete right bundle branch block Inferior infarct (cited on or before 31-JAN-2020) Anteroseptal infarct (cited on or before 31-JAN-2020) Abnormal ECG When compared with ECG of 26-MAY-2022 17:14, Premature atrial complexes are now Present Confirmed by Vinicio Queen ([id number]) on 06/04/2022 5:24:03 AM Referred By: REFERRED SELF Confirmed By:Vinicio Queen
== END 2022-06-03 12:50 | disposition home or self-care (01) ==
LOC: ED 07:40 → INTOOBSV 14:31 → 2W 14:31 → SUATTDRO 14:31 → 2W 16:35
DX: E11.9 Type 2 diabetes mellitus without complications; N17.9 Acute kidney failure, unspecified; I50.32 Chronic diastolic (congestive) heart failure; Z88.0 Allergy status to penicillin; Z79.82 Long term (current) use of aspirin; I11.0 Hypertensive heart disease with heart failure; M54.2 Cervicalgia; G47.33 Obstructive sleep apnea (adult) (pediatric); K52.9 Noninfective gastroenteritis and colitis, unspecified; Z91.041 Radiographic dye allergy status; Z79.899 Other long term (current) drug therapy; I25.2 Old myocardial infarction; E86.0 Dehydration

== ENCOUNTER 2024-09-05 15:29 | Inpatient (IN) ==
[2024-09-05 16:31] LABS: Basophils # (auto) 0.04 K/uL (0.00-0.20); Basophils % (auto) 0.6 %; Eosinophils # (auto) 0.11 K/uL (0.00-0.50); Eosinophils % (auto) 1.7 %; Hematocrit (blood only) 33.8 % (37.0-47.0); Hemoglobin 10.1 g/dl (12.0-16.0); Immature Granulocytes # (auto) 0.03 K/uL (0.01-0.20); Immature Granulocytes % (auto) 0.5 %; Lymphocytes # (auto) 0.85 K/uL (1.20-3.40); Lymphocytes % (auto) 13.1 %; Mean Corpuscular Hemoglobin 26.4 pg (25.0-34.0); Mean Corpuscular Hgb Conc 29.9 g/dL (32.0-36.0); Mean Corpuscular Volume 88.3 fL (80.0-100.0); Mean Platelet Volume 10.2 fL (9.4-12.4); Monocytes # (auto) 0.42 K/uL (0.11-0.59); Monocytes % (auto) 6.5 %; Neutrophils # (auto) 5.03 K/uL (1.40-6.50); Neutrophils % (auto) 77.6 %; Platelet Count 285 K/uL (130-400); RDW Coefficient of Variation 18.3 % (11.5-14.5); RDW Standard Deviation 56.7 fL (36.4-46.3); Red Blood Count 3.83 M/uL (4.20-5.40); White Blood Count 6.48 K/ul (4.8-10.8)
[2024-09-05 16:57] LABS: Albumin Globulin Ratio 1.4 (0.9-2); Albumin Level 3.8 gm/dl (3.4-5.0); BUN Creatinine Ratio 19.4 (10-20); Bilirubin,Total 1.1 mg/dl (0.2-1.0); Calcium 9.4 mg/dl (8.6-10.3); Creatinine Clr Calc Pharmacy 45.7 ml/min; Globulin 2.7 gm/dl (2.5-4.0); Potassium 4.1 mmol/L (3.5-5.1); Total Protein 6.5 gm/dl (6.0-8.3)
[2024-09-05 17:03] LABS: Troponin I High Sensitivity 9.8 pg/ml (0-14)
--- NOTE | 2024-09-05 17:45 | Emergency Department Note ---
History of Present Illness General Chief complaint: Swelling/Edema to Extremity Stated complaint: LEGS SWOLLEN, SOB, VALVE REPLACEMENT Time Seen by Provider: 09/05/24 16:36 History of Present Illness Provider complaint: Swollen legs shortness of breath chest pain 84-year-old female presents emergency department for swollen legs chest pain or difficulty breathing. Patient reports her symptoms been going on for the last month. She reports she has gained 15 pounds over the last month. Patient states she is scheduled to have a catheterization done by Dr. Dailey next week. She describes the chest pain as pressure and states it is intermittent with exertion. Home Medications Medication Instructions Recorded Confirmed Type aspirin 81 mg tablet,delayed 81 mg PO QAM #30 tabs 02/02/20 06/12/24 Rx release cholecalciferol (vitamin D3) 50 2,000 units PO QAM 04/29/20 06/12/24 History mcg (2,000 unit) capsule telmisartan 20 mg tablet 20 mg PO QAM 04/29/20 06/12/24 History sitagliptin phosphate 100 mg 100 mg PO QAM 12/01/20 06/12/24 History tablet (Januvia) allopurinol 100 mg tablet 200 mg PO QAM 09/03/21 06/12/24 History ferrous sulfate 325 mg (65 mg 325 mg PO DAILY 09/03/21 06/12/24 History iron) tablet,delayed release gabapentin 100 mg capsule 300 mg PO QPM 09/05/23 06/12/24 History mecobalamin (vitamin B12) 1,000 1,000 mcg PO DAILY 09/05/23 06/12/24 History mcg chewable tablet Lactobacil.acidophilus-Bifido.animalis 1 cap PO DAILY 12/13/23 06/12/24 History 5 billion cell sprinkle capsule (Probiotic) omeprazole 20 mg capsule,delayed 20 mg PO QAM 12/13/23 06/12/24 History release oxycodone-acetaminophen 5 mg-325 1 tab PO DIRECTED PRN Pain 12/13/23 06/12/24 History mg tablet metoprolol succinate 50 mg 50 mg PO HS #90 tabs 04/11/24 06/12/24 Rx tablet,extended release 24 hr ASV Machine #1 ea 05/28/24 06/12/24 Rx nitroglycerin 0.4 mg sublingual 0.4 mg sublingual DIRECTED PRN 06/12/24 06/12/24 Rx tablet (Nitrostat) Chest Pain #60 tabs Allergies Allergy/AdvReac Type Severity Reaction Status Date / Time Iodinated Contrast Media Allergy Intermediate History Verified 06/12/24 10:25 topical iodine allergy iodine Allergy Intermediate pruritis, Verified 06/12/24 10:25 contact dermatitis Penicillins Allergy Intermediate pruritis, Verified 06/12/24 10:25 swelling of extremeties amoxicillin Allergy Mild Rash Verified 06/12/24 10:25 pork derived (porcine) Allergy Unknown unknown Verified 06/12/24 10:25 thimerosal Allergy Unknown unknown Verified 06/12/24 10:25 atorvastatin AdvReac Intermediate Upset Verified 06/12/24 10:25 stomach, diarrhea diazepam AdvReac Intermediate Nausea and Verified 06/12/24 10:25 hyperactive meclofenamic acid AdvReac Intermediate Diarrhea Verified 06/12/24 10:25 lisinopril AdvReac Mild Nausea Verified 06/12/24 10:25 naproxen AdvReac Mild NAUSEA Verified 06/12/24 10:25 mcclomen Allergy Intermediate GI SYMPTOMS Uncoded 06/12/24 10:25 Flu Virus Vaccine Allergy Unknown unknown Uncoded 06/12/24 10:25 Naproxen AdvReac Intermediate Gastrointestinal Uncoded 06/12/24 10:25 Upset Past Med/Surg History Problem List (Updated 09/05/24 @ 22:30 by Rodney Krishnan MD) CHF (congestive heart failure) (Acute) Acute on chronic heart failure with preserved ejection fraction Dyslipidemia Aortic stenosis, severe Normocytic anemia Aortic stenosis Urinary incontinence S/P repair of ventral hernia laparascopic x 2 Diastasis recti History of back problems Anemia Acute dehydration (Acute) MARIAMA (acute kidney injury) (Acute) Weakness generalized (Acute) Fall as cause of accidental injury at home as place of occurrence (Acute) Unable to ambulate (Acute) Neck pain Chronic diastolic (congestive) heart failure Acute exacerbation of CHF (congestive heart failure) (Acute) Type 2 diabetes mellitus Atypical chest pain (Acute) Elevated brain natriuretic peptide (BNP) level (Acute) Pelvic floor dysfunction Hydronephrosis, right Cough Dyspnea Encounter for pre-operative examination CAD (coronary artery disease) S/p MORENA 01/31/20 to mid LAD GERD (gastroesophageal reflux disease) Acute MT ST elevation (STEMI) myocardial infarction (Acute 01/31/20) Microcytic anemia DVT prophylaxis Gross hematuria Pre-op testing Bilateral renal stones Lesion of left [place] ureter Calculus of urinary bladder Prediabetes Would consider patient diabetic= Hgb A1C 7.7 on 02/01/20; pt also on Januvia and Metformin Mixed hyperlipidemia HTN (hypertension) FELICE (obstructive sleep apnea) CPAP Medical History Sleep apnea Claustrophobia Scoliosis Spinal stenosis Osteoarthritis [place] (hard of hearing) VERY-NO AIDS Myocardial infarction 01/2020 Kidney stones Surgical History History of esophagogastroduodenoscopy (EGD) History of colonoscopy Slow to wake up after anesthesia History of cardiac cath 01/2020 - [facility] - 1 stent - follows w/ Dr. Dailey S/P sinus surgery S/P foot surgery Left x 2, Right x 3 S/P carpal tunnel release BL S/P CARRI (total abdominal hysterectomy) S/P tonsillectomy History of bladder suspension procedure S/P cataract extraction b/l Total knee replacement status right History of total shoulder replacement b/l Family History Father , in 90s from AAA AAA (abdominal aortic aneurysm) Stroke Family history of diabetes mellitus Mother , in her 70s Lung cancer Hypertension Aunt Family history of diabetes mellitus Denies family history of Coronary heart disease Social History Smoking Status: Never smoker Second Hand Exposure: No; Do You Dip or Chew Tobacco: No; Hx Alcohol Use: Yes Alcohol type: wine Hx Substance Use: No Preferred Language: Thai Communication Ability: Effective Visual Impairment: No Limitations Hearing Ability: Hard of Hearing Real Estate Developer Required: No Beliefs That Will Affect Care: None marital status: marital status details: 2 children Current Living Situation: Spouse Current Living Situation Comment: house current occupational status: retired 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[employer]; [employer]; 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; 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 How many Children do You have: 2 Feels Safe at Home: Yes Diet: diabetic during the past year weight has: decreased > 10 lbs Physical Activity Frequency: Does not Exercise Assistive Devices: Cane and Walker Physical Exam Vital Signs Vital Signs - 24 hr 09/05/24 15:34 09/05/24 16:51 09/05/24 16:54 Temperature 36.1 C L Temperature Source Temporal Artery Scan Pulse Rate 72 Pulse Rate [Apical] 58 L Respiratory Rate 20 22 Respiratory Effort / Characteristics Non-Labored Spontaneous Respiratory Depth Normal Respiratory Pattern Regular Blood Pressure 181/99 H Blood Pressure [Right Arm] 153/92 H Blood Pressure Mean 126 Blood Pressure Mean [Right Arm] 112 Blood Pressure Position [Right Arm] Semi-fowlers Pulse Oximetry 94 93 Oxygen Delivery Method Room Air Room Air Room Air Oxygen Flow Rate Sepsis Recent Fever Within 48 Hours No Sepsis New/Unexplained Change in Mental Status N/A Sepsis Action Taken by Nursing No Action Required 09/05/24 16:54 09/05/24 16:57 09/05/24 18:37 Temperature Temperature Source Pulse Rate 63 63 Pulse Rate [Apical] 60 Respiratory Rate 26 H 20 Respiratory Effort / Characteristics Respiratory Depth Respiratory Pattern Blood Pressure Blood Pressure [Right Arm] 178/96 H Blood Pressure Mean Blood Pressure Mean [Right Arm] 123 Blood Pressure Position [Right Arm] Semi-fowlers Pulse Oximetry 92 95 Oxygen Delivery Method Room Air Nasal Cannula Oxygen Flow Rate 1 Sepsis Recent Fever Within 48 Hours Sepsis New/Unexplained Change in Mental Status Sepsis Action Taken by Nursing 09/05/24 19:00 Temperature Temperature Source Pulse Rate Pulse Rate [Apical] 62 Respiratory Rate 18 Respiratory Effort / Characteristics Respiratory Depth Respiratory Pattern Blood Pressure Blood Pressure [Right Arm] 125/105 H Blood Pressure Mean Blood Pressure Mean [Right Arm] 111 Blood Pressure Position [Right Arm] Pulse Oximetry 97 Oxygen Delivery Method Nasal Cannula Oxygen Flow Rate 1 Sepsis Recent Fever Within 48 Hours Sepsis New/Unexplained Change in Mental Status Sepsis Action Taken by Nursing Physical Exam GENERAL: oriented to person, place, and time. appears well-developed and well- nourished. Patient eating Fritos in the hospital bed. HENT: Exam performed. - Head: Normocephalic and atraumatic. EYES: Conjunctivae and EOM are normal. Right eye exhibits no discharge. Left eye exhibits no discharge. No scleral icterus. NECK: Normal range of motion. Neck supple. No JVD present. CV: Normal rate, regular rhythm, systolic murmur and intact distal pulses. 4+ pitting edema of the bilateral lower extremities. Palpable radial pulses bue. PULM/CHEST: Effort normal and breath sounds normal. No respiratory distress. No stridor. no wheezes. no rales. ABD: The abdomen is soft. There is no tenderness. NEURO: Motor and sensation grossly intact. SKIN: Skin is warm and dry. He is not diaphoretic. PSYCH: normal mood and affect. Behavior is normal. Judgment and thought content normal. Course Course 1636: The patient was evaluated in room B9. A complete history and physical exam was performed Cardiac monitoring: An order was placed for continuous cardiac monitoring. The monitor shows a rate of 60 with sinus rhythm interpreted by me 1845: Patient became hypoxic on room air. Supplemental oxygen was applied which improved the patient's oxygen saturation. Labs showed elevated proBNP. Imaging shows cardiomegaly with cephalization. Patient treated with Lasix and advised to avoid high salt diet. Patient will be admitted to the [facility] team. Administered Medications Discontinued Medications Furosemide (Furosemide 40 Mg/4 Ml Vial) 40 mg IV ONE ONE Stop: 09/05/24 18:04 Last Admin: 09/05/24 18:14 Dose: 40 mg Documented By: STEVE Medical Decision Making Laboratory Data Attestation: I reviewed the patient's lab results. 09/05/24 16:14 09/05/24 16:14 Lab Results 09/05/24 09/05/24 Range/Units 16:14 17:26 WBC 6.48 (4.8-10.8) K/ul RBC 3.83 L (4.20-5.40) M/uL Hgb 10.1 L (12.0-16.0) g/dl Hct 33.8 L (37.0-47.0) % MCV 88.3 (80.0-100.0) fL MCH 26.4 (25.0-34.0) pg MCHC 29.9 L (32.0-36.0) g/dL RDW Std Deviation 56.7 H (36.4-46.3) fL RDW Coeff of Angelina 18.3 H (11.5-14.5) % Plt Count 285 (130-400) K/uL MPV 10.2 (9.4-12.4) fL Immature Gran % (Auto) 0.5 % Neut % (Auto) 77.6 % Lymph % (Auto) 13.1 % [place] % (Auto) 6.5 % Eos % (Auto) 1.7 % Baso % (Auto) 0.6 % Neut # (Auto) 5.03 (1.40-6.50) K/uL Lymph # (Auto) 0.85 L (1.20-3.40) K/uL [place] # (Auto) 0.42 (0.11-0.59) K/uL Eos # (Auto) 0.11 (0.00-0.50) K/uL Baso # (Auto) 0.04 (0.00-0.20) K/uL Immature Gran # (Auto) 0.03 (0.01-0.20) K/uL PT Cancelled 12.4 H INR Cancelled 1.2 H APTT Cancelled 25 PTT Ratio Cancelled 0.9 Sodium 142 (136-145) mmol/L Potassium 4.1 (3.5-5.1) mmol/L Chloride 108 H (98-107) mmol/L Carbon Dioxide 25 (21-32) mmol/L Anion Gap 9 (3-11) BUN 19 (6-23) mg/dl Creatinine 0.98 (0.6-1.2) mg/dl Est Cr Clr Drug Dosing 45.7 ml/min eGFR 56.21 BUN/Creatinine Ratio 19.4 (10-20) Glucose 115 H (70-99(Fasting)) mg/dl Calcium 9.4 (8.6-10.3) mg/dl Total Bilirubin 1.1 H (0.2-1.0) mg/dl AST 22 (13-39) U/L ALT 11 (7-52) U/L Alkaline Phosphatase 74 (34-104) U/L Troponin I High Sens 9.8 (0-14) pg/ml B-Natriuretic Peptide 909 H (0-100) pg/ml Total Protein 6.5 (6.0-8.3) gm/dl Albumin 3.8 (3.4-5.0) gm/dl Globulin 2.7 (2.5-4.0) gm/dl Albumin/Globulin Ratio 1.4 (0.9-2) Imaging Data Attestation: I personally reviewed and interpreted this imaging study as follows: My Impression: Chest x-ray: Cardiomegaly with cephalization Radiologist's Impression: Chest X-Ray 09/05/24 15:38 EXAM: Radiograph of the Chest 1 View INDICATION: Chest pain TECHNIQUE: Frontal view of the chest. COMPARISON: 01/03/2024 FINDINGS: Lungs and pleural spaces: There is new diffuse mild interstitial thickening. No pulmonary edema. No consolidation. Probable trace pleural effusions. Heart: Stable cardiomegaly. Mediastinum: Slight increased small to moderate hiatal hernia. Bones/joints: Visualized bilateral shoulder arthroplasty grossly intact. Degenerative changes noted in the spine. No acute osseous abnormality. Soft tissues: No abnormality noted. No radiopaque foreign body noted. Upper abdomen: No abnormality noted. IMPRESSION: Mild CHF. ACT 112: Negative or not required by law. Electronically signed by Lydia Smith 09-05-2024 6:06 PM ECG Data Attestation: I personally reviewed and interpreted this ECG as follows: Rate (beats per minute): 63 Rhythm: + normal sinus ECG Intervals/blocks: + Normal CA and + Normal QT-c ECG ST segments: + Normal ST segments Additional Comments: QRS 70 MDM Narrative 1636: The patient was evaluated in room B9. A complete history and physical exam was performed Cardiac monitoring: An order was placed for continuous cardiac monitoring. The monitor shows a rate of 60 with sinus rhythm interpreted by me 1845: Patient became hypoxic on room air. Supplemental oxygen was applied which improved the patient's oxygen saturation. Labs showed elevated proBNP. Imaging shows cardiomegaly with cephalization. Patient treated with Lasix and advised to avoid high salt diet. Patient will be admitted to the [facility] team. Impression & Plan CHF (congestive heart failure) Discharge Plan Visit Data Chief Complaint: Swelling/Edema to Extremity Stated Complaint: LEGS SWOLLEN, SOB, VALVE REPLACEMENT ED Provider: Rodney Krishnan Discharge Problem: CHF (congestive heart failure) Patient Disposition: Admitted As Inpatient Discharge Instructions Interventions: ED Discharge Assessment Last Done: 09/05/24 20:08 Discharge Problem: CHF (congestive heart failure) Qualifiers: Heart failure type: unspecified Heart failure chronicity: unspecified Qualified Code(s): I50.9 - Heart failure, unspecified
--- NOTE | 2024-09-05 18:07 | XRay Report ---
EXAM: Radiograph of the Chest 1 View INDICATION: Chest pain TECHNIQUE: Frontal view of the chest. COMPARISON: 01/03/2024 FINDINGS: Lungs and pleural spaces: There is new diffuse mild interstitial thickening. No pulmonary edema. No consolidation. Probable trace pleural effusions. Heart: Stable cardiomegaly. Mediastinum: Slight increased small to moderate hiatal hernia. Bones/joints: Visualized bilateral shoulder arthroplasty grossly intact. Degenerative changes noted in the spine. No acute osseous abnormality. Soft tissues: No abnormality noted. No radiopaque foreign body noted. Upper abdomen: No abnormality noted. IMPRESSION: Mild CHF. ACT 112: Negative or not required by law. Electronically signed by Lydia Smith 09-05-2024 6:06 PM
[2024-09-05 18:10] LABS: INR 1.2 (0.9-1.1); Partial Thromboplastin Ratio 0.9; Partial Thromboplastin Time 25 Seconds (21-31); Prothrombin Time 12.4 Seconds (9.0-12.0)
--- NOTE | 2024-09-05 18:12 | History & Physical Report ---
Date of Service September 05, 2024 Assessment & Plan (1) Acute on chronic heart failure with preserved ejection fraction: (2) Normocytic anemia: (3) Aortic stenosis, severe: (4) CAD (coronary artery disease): (5) HTN (hypertension): (6) Dyslipidemia: Plan Acute on chronic HFpEF in setting of valvular disease - BNP on admit 909, CXR: mild CHF, Echo May 2024: severe aortic stenosis - Continue to diurese IV Lasix 40mg for BL LE edema and SOB - Currently on 1L O2 NC, goal O2 > 92% - Monitor weight, strict I/Os, sodium restricted diet - Continuous cardiac monitoring - Cardiology consult placed - Lasix QAM - CBC, BMP QAM Normocytic anemia - Hgb 10.1 on ED admit, baseline approximately 12 - Transfuse if < 7 - CBC QAM CAD - Post anterior STEMI 01/2020, PCI with single MORENA to mid LAD - Mild to moderate residual proximal LAD disease - Daily aspirin PO QAM, intolerant to statin therapy Severe aortic stenosis - Valve replacement procedure planned to be done in [place] - Cardiac catheterization with Dr. Dailey scheduled 09/11 HTN - Continue metoprolol succinate 50mg PO HS - Continue telmisartan 20mg PO QAM T2DM - Last a1c December 2023: 6.5 - On Januvia 100mg PO daily Dyslipidemia - Intolerant to statin therapy - Lipid profile stable, LDL chol: 111, Aug 2024 History of Present Illness Chief Complaint: Chest pain, SOB, bilateral LE edema Primary Care Provider: Karissa Mary Nan Rae is a 84 y/o F with a past medical history of CAD s/p MORENA and PCI 2019 chronic diastolic heart failure EF 50-55%, dyslipidemia - intolerant to statins, HTN, FELICE, severe asymptomatic aortic stenosis arriving in the ED due to chest pain, SOB, and edema. 09/11 cardiac catheter[address] scheduled with Dr. Kaushik nash. Patient endorses 5 weeks of chest pressure, cough and SOB, and bilateral lower extremity edema. Patient explains that the chest pressure has not been painful or worsening but her SOB/cough and bilateral lower extremity has been progressively worsening, and she noticed that symptoms began rapidly worsening since the past week and a half. Patient notes that she has been consistently gaining 1-2 pounds per day for the past few weeks. The patient also endorses nausea but denies vomiting and abdominal pain. The patient denies chest pains, palpitations, headache incontinence or changes in bowel habits. Patient endorses that before 5 weeks ago she was ambulating with a cane or walker, but for the past month or so has been using a wheel chair to move around because of her increased leg pain and SOB. Patient endorses being on furosemide in the past, but took herself off of the medication and after consulting with cardiology was not placed back on medication. Allergies Allergy/AdvReac Type Severity Reaction Status Date / Time Iodinated Contrast Media Allergy Intermediate History Verified 06/12/24 10:25 topical iodine allergy iodine Allergy Intermediate pruritis, Verified 06/12/24 10:25 contact dermatitis Penicillins Allergy Intermediate pruritis, Verified 06/12/24 10:25 swelling of extremeties amoxicillin Allergy Mild Rash Verified 06/12/24 10:25 Influenza Virus Vaccines Allergy Unknown Unknown Verified 09/05/24 22:41 pork derived (porcine) Allergy Unknown unknown Verified 06/12/24 10:25 thimerosal Allergy Unknown unknown Verified 06/12/24 10:25 atorvastatin AdvReac Intermediate Upset Verified 06/12/24 10:25 stomach, diarrhea diazepam AdvReac Intermediate Nausea and Verified 06/12/24 10:25 hyperactive meclofenamic acid AdvReac Intermediate Diarrhea Verified 06/12/24 10:25 lisinopril AdvReac Mild Nausea Verified 06/12/24 10:25 naproxen AdvReac Mild NAUSEA Verified 06/12/24 10:25 Home Medications Medication Instructions Recorded Confirmed Type aspirin 81 mg tablet,delayed 81 mg PO QAM #30 tabs 02/02/20 06/12/24 Rx release cholecalciferol (vitamin D3) 50 2,000 units PO QAM 04/29/20 06/12/24 History mcg (2,000 unit) capsule telmisartan 20 mg tablet 20 mg PO QAM 04/29/20 06/12/24 History sitagliptin phosphate 100 mg 100 mg PO QAM 12/01/20 06/12/24 History tablet (Januvia) allopurinol 100 mg tablet 200 mg PO QAM 09/03/21 06/12/24 History ferrous sulfate 325 mg (65 mg 325 mg PO DAILY 09/03/21 06/12/24 History iron) tablet,delayed release gabapentin 100 mg capsule 300 mg PO QPM 09/05/23 06/12/24 History mecobalamin (vitamin B12) 1,000 1,000 mcg PO DAILY 09/05/23 06/12/24 History mcg chewable tablet Lactobacil.acidophilus-Bifido.animalis 1 cap PO DAILY 12/13/23 06/12/24 History 5 billion cell sprinkle capsule (Probiotic) omeprazole 20 mg capsule,delayed 20 mg PO QAM 12/13/23 06/12/24 History release oxycodone-acetaminophen 5 mg-325 1 tab PO DIRECTED PRN Pain 12/13/23 06/12/24 History mg tablet metoprolol succinate 50 mg 50 mg PO HS #90 tabs 04/11/24 06/12/24 Rx tablet,extended release 24 hr ASV Machine #1 ea 05/28/24 06/12/24 Rx nitroglycerin 0.4 mg sublingual 0.4 mg sublingual DIRECTED PRN 06/12/24 06/12/24 Rx tablet (Nitrostat) Chest Pain #60 tabs Past Med/Surg History Problem List (Updated 09/05/24 @ 22:30 by Rodney Krishnan MD) CHF (congestive heart failure) (Acute) Acute on chronic heart failure with preserved ejection fraction Dyslipidemia Aortic stenosis, severe Normocytic anemia Aortic stenosis Urinary incontinence S/P repair of ventral hernia laparascopic x 2 Diastasis recti History of back problems Anemia Acute dehydration (Acute) MARIAMA (acute kidney injury) (Acute) Weakness generalized (Acute) Fall as cause of accidental injury at home as place of occurrence (Acute) Unable to ambulate (Acute) Neck pain Chronic diastolic (congestive) heart failure Acute exacerbation of CHF (congestive heart failure) (Acute) Type 2 diabetes mellitus Atypical chest pain (Acute) Elevated brain natriuretic peptide (BNP) level (Acute) Pelvic floor dysfunction Hydronephrosis, right Cough Dyspnea Encounter for pre-operative examination CAD (coronary artery disease) S/p MORENA 01/31/20 to mid LAD GERD (gastroesophageal reflux disease) Acute CO ST elevation (STEMI) myocardial infarction (Acute 01/31/20) Microcytic anemia DVT prophylaxis Gross hematuria Pre-op testing Bilateral renal stones Lesion of left [place] ureter Calculus of urinary bladder Prediabetes Would consider patient diabetic= Hgb A1C 7.7 on 02/01/20; pt also on Januvia and Metformin Mixed hyperlipidemia HTN (hypertension) FELICE (obstructive sleep apnea) CPAP Medical History Sleep apnea Claustrophobia Scoliosis Spinal stenosis Osteoarthritis [place] CHIN (hard of hearing) VERY-NO AIDS Myocardial infarction 01/2020 Kidney stones Surgical History History of esophagogastroduodenoscopy (EGD) History of colonoscopy Slow to wake up after anesthesia History of cardiac cath 01/2020 - [facility] - 1 stent - follows w/ Dr. Dailey S/P sinus surgery S/P foot surgery Left x 2, Right x 3 S/P carpal tunnel release BL S/P CARRI (total abdominal hysterectomy) S/P tonsillectomy History of bladder suspension procedure S/P cataract extraction b/l Total knee replacement status right History of total shoulder replacement b/l Family History Father , in 90s from AAA AAA (abdominal aortic aneurysm) Stroke Family history of diabetes mellitus Mother , in her 70s Lung cancer Hypertension Aunt Family history of diabetes mellitus Denies family history of Coronary heart disease Social History Smoking Status: Never smoker Second Hand Exposure: No; Do You Dip or Chew Tobacco: No; Hx Alcohol Use: Yes Alcohol type: wine Hx Substance Use: No Preferred Language: [place] Communication Ability: Effective Visual Impairment: No Limitations Hearing Ability: Hard of Hearing Telemedicine Physician Required: No Beliefs That Will Affect Care: None marital status: marital status details: 2 children Current Living Situation: Spouse Current Living Situation Comment: 1 story home current occupational status: retired 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 Skin: warm, dry, intact HEENT: NC/AT, anicteric sclera, conjunctiva without injection, moist mucus membranes. Heart: +S1/S2, regular, grade 3/6 holosystolic murmur best heard at right sternal border Lungs: equal air entry bilaterally, no rales/rhonchi/wheezes Abd: +BS, soft, NT/ND Ext: warm, erythema present bilaterally in distal legs with bilateral 4+ pitting edema Neuro: nonfocal, speech intact, no facial droop, moving all extremities. Results & Data Results & Data Vital Signs (Past 12 Hours) Vital Signs Temp Pulse Pulse Resp BP BP Pulse Ox 09/05/24 16:57 63 26 H 92 09/05/24 16:54 63 09/05/24 16:54 09/05/24 16:51 58 L 22 153/92 H 93 09/05/24 15:34 36.1 C L 72 20 181/99 H 94 O2 Del Method 09/05/24 16:57 Room Air 09/05/24 16:54 09/05/24 16:54 Room Air 09/05/24 16:51 Room Air 09/05/24 15:34 Room Air Laboratory Results Abnormal lab results 09/05/24 09/05/24 Range/Units 16:14 17:26 RBC 3.83 L (4.20-5.40) M/uL Hgb 10.1 L (12.0-16.0) g/dl Hct 33.8 L (37.0-47.0) % MCHC 29.9 L (32.0-36.0) g/dL RDW Std Deviation 56.7 H (36.4-46.3) fL RDW Coeff of Angelina 18.3 H (11.5-14.5) % Lymph # (Auto) 0.85 L (1.20-3.40) K/uL PT 12.4 H (9.0-12.0) Seconds INR 1.2 H (0.9-1.1) Chloride 108 H (98-107) mmol/L Glucose 115 H (70-99(Fasting)) mg/dl Total Bilirubin 1.1 H (0.2-1.0) mg/dl B-Natriuretic Peptide 909 H (0-100) pg/ml Diagnostic Findings Chest X-Ray 09/05/24 15:38 EXAM: Radiograph of the Chest 1 View INDICATION: Chest pain TECHNIQUE: Frontal view of the chest. COMPARISON: 01/03/2024 FINDINGS: Lungs and pleural spaces: There is new diffuse mild interstitial thickening. No pulmonary edema. No consolidation. Probable trace pleural effusions. Heart: Stable cardiomegaly. Mediastinum: Slight increased small to moderate hiatal hernia. Bones/joints: Visualized bilateral shoulder arthroplasty grossly intact. Degenerative changes noted in the spine. No acute osseous abnormality. Soft tissues: No abnormality noted. No radiopaque foreign body noted. Upper abdomen: No abnormality noted. IMPRESSION: Mild CHF. ACT 112: Negative or not required by law. Electronically signed by Lydia Smith 09-05-2024 6:06 PM Supervising Physician Co-Signing Physician Notes I personally saw and examined the patient. I independently reviewed the labs, EKG, imaging, problem list, medication list, past medical history and family history. I verified all guerrero points and agree with resident physician Dr Afshin Perry, with the following exceptions and/or additions: 84 year old female presents to the ER with leg swelling, shortness of breath and chest pressure progressively getting worse over weeks. Planning to have evaluation for her aortic stenosis in [place]. O/E HS RRR, MATT loudest in RUSB, 3/6, bibasal crackles on chest auscultation, Abdo SNT, b/l lower extremity edema 3+ A/P Acute on chronic HFpEF - secondary to valvular disease, Low Na diet, strict I&OS, daily weights, Lasix 40 mg IV daily, consult cardiology. No pericardial effusion on POCUS US (recent echo in May, will defer to cardiology whether this needs repeating. UA to assess for proteinuria. Resident Activity Tracking Resident Involvement: Resident Care Provided Care Provided: Adult Hospital Medicine (5) HTN (hypertension) Hypertension type: essential hypertension Qualified Code(s): I10 - Essential (primary) hypertension
[2024-09-05] MEDS: FUROSEMIDE 40 MG/4 ML VIAL IV ONE (18:14)
[2024-09-05 22:06] LABS: Appearance Urine Clear (Clear); Bilirubin Urine Negative (Negative); Blood Urine Negative (Negative); Color Urine Yellow; Glucose Urine UA Negative (Negative); Ketones Urine Negative (Negative); Leukocyte Esterase Urine Negative (Negative); Nitrite Urine Negative (Negative); Protein Urine Negative (Negative); Specific Gravity Urine 1.006 (1.000-1.030); Urobilinogen Urine Negative (Negative)
[2024-09-05] MEDS ORDERED: GLUCOSE 10 TAB/TUBE PO PRN (22:31)
[2024-09-05] MEDS ORDERED: GLUCOSE 40% GEL 15 GM TUBE PO PRN (22:31)
[2024-09-05] MEDS ORDERED: CARBOHYDRATES FOR HYPOGLYCEMIA PO PRN (22:31)
[2024-09-05] MEDS ORDERED: GLUCAGON FOR INJ 1 MG VIAL SQ PRN (22:31)
[2024-09-05] MEDS ORDERED: DEXTROSE 50% 50 ML SYRINGE IV PRN (22:31)
[2024-09-05] MEDS: GABAPENTIN 300 MG CAP PO SCH (23:02)
[2024-09-06 06:41] LABS: Hematocrit (blood only) 29.7 % (37.0-47.0); Mean Corpuscular Hemoglobin 26.4 pg (25.0-34.0); Mean Corpuscular Hgb Conc 30.3 g/dL (32.0-36.0); Mean Corpuscular Volume 87.1 fL (80.0-100.0); Mean Platelet Volume 10.3 fL (9.4-12.4); Platelet Count 242 K/uL (130-400); RDW Coefficient of Variation 17.6 % (11.5-14.5); RDW Standard Deviation 55.2 fL (36.4-46.3); Red Blood Count 3.41 M/uL (4.20-5.40); White Blood Count 5.25 K/ul (4.8-10.8)
[2024-09-06 06:58] LABS: BUN Creatinine Ratio 21.8 (10-20); Calcium 8.7 mg/dl (8.6-10.3); Creatinine Clr Calc Pharmacy 50.5 ml/min; Potassium 3.7 mmol/L (3.5-5.1)
--- NOTE | 2024-09-06 06:59 | Billing Data ---
Date of Service September 05, 2024 Coding Level of Care Code 57539 INT INP/OBS CARE
--- NOTE | 2024-09-06 07:32 | Hospitalist Progress Note ---
Date of Service September 06, 2024 Assessment & Plan (1) Acute on chronic heart failure with preserved ejection fraction: Plan: 84 y/o with severe admitted with acute HFpEF. was not symptomatic of heart failure previous to the last few weeks when she developed progressive edema and then dyspnea Scheduled for coronary angiogram 09/[address] Dailey for planned upcoming TAVR at [facility] Last TTE 05/2024 reviewed: normal LV, apical hypokinesis, mod conc LVH, severe with SIVA 0.5, mod MR and TR Good diuresis overnight -2750 and wt 93.7-->90.3, caution not to drop preload -continue lasix 40 IV daily, added potassium replacement -on metoprolol succinate and losartan -sitagliptin should probably be replaced with an SGLT-2 -AM BMP, mag -consulted cardiology, reviewed recommendations in Dr. Mendiola's note (2) Aortic stenosis, severe: Plan: as above (3) CAD (coronary artery disease): Plan: CAD - Post anterior STEMI 01/2020, PCI with single MORENA to mid LAD - Mild to moderate residual proximal LAD disease - added daily aspirin PO QAM, intolerant to statin therapy (4) Normocytic anemia: Plan: iron deficient and B12 deficient in 2021 check iron panel, B12 - iron stores low normal, B12 normal (5) Type 2 diabetes mellitus: Plan: T2DM - Last a1c December 2023: 6.5 - Januvia 100mg PO daily held. Because of heart failure likely will benefit from changing DPP-4 to SGLT-2 - diabetic diet, premeal correctional insulin Plan Mildly elevated INR of 1.2, minimally elevated bilirubin 1.1 - likely liver congestion from HF, TR Pulmonary hypertension, history of cryptogenic organizing pneumonia Hypertension - meds as above Dyslipidemia - intolerant of statin. LDL chol: 111, Aug 2024 FELICE - clarify on CPAP? DVT ppx - enoxaparin lives with her , can stay on one level with 1 LESLYE updated daughters at bedside Admission and Anticipated Discharge Date Admission Date: September 05, 2024 Subjective feels better less short of breath, unsure whether leg edema improved. both legs are ready from mid vigil downward but not tender or painful she has not had any fevers urinated a lot yesterday after lasix IV daughters at bedside report shes been gaining 2 pounds a day last few weeks she denies chest pain or any syncopal episodes Physical Exam 2 Physical Exam: PHYSICAL EXAMINATION Last 24h vital signs reviewed, see documentation in flowsheet General: comfortable appearing, no distress, sitting up in bed very pleasant HEENT: Normocephalic, atraumatic, pupils round and equal, sclerae anicteric, no conjunctival injection, moist mucus membranes Lungs: Normal respiratory effort. fine crackles two thirds the way up bilaterally. No wheezing Heart: Regular rate and rhythm, systolic crescendo decrescendo murmur, JVD present Abdomen: Soft, nontender, nondistended. Bowel sounds present. Extremities: Warm, dry, well-perfused. 3+ bilateral lower extremity edema with dark erythema, not warm or tender however. Neuro: Alert and oriented x 4, face symmetric, moves 4 extremities well Psych: Normal affect and behavior Results & Data Results & Data Vital Signs (Past 12 Hours) Vital Signs Temp Pulse Pulse Pulse Resp BP BP 09/06/24 03:30 36.9 C 65 22 146/81 H 09/05/24 23:33 36.7 C 60 21 155/75 H 09/05/24 23:22 09/05/24 23:00 09/05/24 22:34 36.5 C 77 18 163/70 H 09/05/24 21:45 65 09/05/24 20:50 77 09/05/24 20:00 59 L 20 158/76 H Pulse Ox O2 Del Method O2 Flow Rate 09/06/24 03:30 92 Nasal Cannula 2 09/05/24 23:33 97 Nasal Cannula 2 09/05/24 23:22 Nasal Cannula 2 09/05/24 23:00 Nasal Cannula 2 09/05/24 22:34 94 Nasal Cannula 2 09/05/24 21:45 09/05/24 20:50 09/05/24 20:00 97 Nasal Cannula 1 Laboratory Results 09/06/24 05:49 09/06/24 05:49 PG Care Time/CCT Total # of Minutes Spent Total Time Spent with Patient: Total time spent is greater than 50% in coordination of care (as documented) at patient's floor/unit and/or counseling patient: Coding Level of Care Code 04106 SUB INP/OBS CARE 3/50MIN Diagnoses Acute on chronic heart failure with preserved ejection fraction I50.33 Aortic stenosis, severe I35.0 CAD (coronary artery disease) I25.10 Normocytic anemia D64.9 Type 2 diabetes mellitus E11.9
[2024-09-06] MEDS: INSULIN ASPART PER UNIT CHARGE SC SCH (08:10)
[2024-09-06 08:30] LABS: Ferritin 60.9 ng/ml (8-388)
[2024-09-06] MEDS: LOSARTAN POTASSIUM 25 MG TAB PO SCH (09:20)
[2024-09-06] MEDS: PANTOprazole 40 MG TAB PO SCH (09:20)
[2024-09-06] MEDS: POTASSIUM CHLORIDE CRTAB 20 MEQ TABCR PO SCH (09:20)
[2024-09-06] MEDS: FUROSEMIDE 40 MG/4 ML VIAL IV SCH (09:21)
--- NOTE | 2024-09-06 12:20 | Cardiology Consultation ---
Date of Consultation September 06, 2024 Assessment & Plan (1) (HFpEF) heart failure with preserved ejection fraction: (2) Aortic stenosis, severe: (3) CAD (coronary artery disease): (4) Bilateral lower extremity edema: (5) Pulmonary hypertension: Plan 84-year-old woman status post remote PCI of LAD with progressive and now symptomatic severe aortic stenosis for which transcatheter aortic valve replacement (TAVR) is planned in the near future. She has improved clinically but still appears hypervolemic, important to avoid overdiuresis but reasonable to continue furosemide 40 mg IV daily. BP intermittently hypertensive, currently normotensive. Allow some degree of permissive hypertension in the context of severe aortic stenosis given the risks of hypotension causing downward spiral. No change in low-dose losartan. Given presence of coronary artery disease and prior PCI would favor restarting aspirin 81 mg daily in the absence of any contraindication. As noted, cardiac catheterization planned next week. Decision on whether she can return turn home prior to this will be based on her further response to diuretics and serial clinical assessments. Will continue to follow while inpatient. History of Present Illness Reason for Consultation: Acute exacerbation CHF Requesting Physician: Jenna Posey MD Attending Physician: Jenna Posey MD History of Present Illness 84-year-old woman with progressive aortic stenosis (now severe and symptomatic), CAD (LAD stent 2019, mild to moderate remaining disease), HFpEF, pulmonary hypertension possibly secondary to cryptogenic organizing pneumonia, chronic lower extremity edema, diabetes mellitus (oral therapy), and other medical problems who was admitted 09/05/2024 with signs of progressive congestive heart failure. Patient is followed routinely from a cardiology standpoint by Dr. Adeel Dailey, she is scheduled to undergo cardiac catheterization on 09/11/2024 prior to planned TAVR at [facility] later this month. She was previously asymptomatic, but over the past week she had noted chest pressure, cough, increasing dyspnea with exertion, and worsening of her chronic lower extremity edema. She had gained 1 to 2 pounds per day over the past week or so. Evaluation here showed mild congestive heart failure on chest film, elevated BNP (909 with baseline several years ago to 23), troponin was normal, and exam findings consistent with volume overload. She was given furosemide 40 mg IV daily and has had a good diuresis, -2 L overnight. Presently, she feels well at rest on supplemental oxygen. She still notes dyspnea with minimal exertion, but less than yesterday. No chest discomfort presently Telemetry showed sinus rhythm.. Allergies Allergy/AdvReac Type Severity Reaction Status Date / Time Iodinated Contrast Media Allergy Intermediate History Verified 06/12/24 10:25 topical iodine allergy iodine Allergy Intermediate pruritis, Verified 06/12/24 10:25 contact dermatitis Penicillins Allergy Intermediate pruritis, Verified 06/12/24 10:25 swelling of extremeties amoxicillin Allergy Mild Rash Verified 06/12/24 10:25 Influenza Virus Vaccines Allergy Unknown Unknown Verified 09/05/24 22:41 pork derived (porcine) Allergy Unknown unknown Verified 06/12/24 10:25 thimerosal Allergy Unknown unknown Verified 06/12/24 10:25 atorvastatin AdvReac Intermediate Upset Verified 06/12/24 10:25 stomach, diarrhea diazepam AdvReac Intermediate Nausea and Verified 06/12/24 10:25 hyperactive meclofenamic acid AdvReac Intermediate Diarrhea Verified 06/12/24 10:25 lisinopril AdvReac Mild Nausea Verified 06/12/24 10:25 naproxen AdvReac Mild NAUSEA Verified 06/12/24 10:25 Home Medications Medication Instructions Recorded Confirmed Type aspirin 81 mg tablet,delayed 81 mg PO QAM #30 tabs 02/02/20 06/12/24 Rx release cholecalciferol (vitamin D3) 50 2,000 units PO QAM 04/29/20 06/12/24 History mcg (2,000 unit) capsule telmisartan 20 mg tablet 20 mg PO QAM 04/29/20 06/12/24 History sitagliptin phosphate 100 mg 100 mg PO QAM 12/01/20 06/12/24 History tablet (Januvia) allopurinol 100 mg tablet 200 mg PO QAM 09/03/21 06/12/24 History ferrous sulfate 325 mg (65 mg 325 mg PO DAILY 09/03/21 06/12/24 History iron) tablet,delayed release gabapentin 100 mg capsule 300 mg PO QPM 09/05/23 06/12/24 History mecobalamin (vitamin B12) 1,000 1,000 mcg PO DAILY 09/05/23 06/12/24 History mcg chewable tablet Lactobacil.acidophilus-Bifido.animalis 1 cap PO DAILY 12/13/23 06/12/24 History 5 billion cell sprinkle capsule (Probiotic) omeprazole 20 mg capsule,delayed 20 mg PO QAM 12/13/23 06/12/24 History release oxycodone-acetaminophen 5 mg-325 1 tab PO DIRECTED PRN Pain 12/13/23 06/12/24 History mg tablet metoprolol succinate 50 mg 50 mg PO HS #90 tabs 04/11/24 06/12/24 Rx tablet,extended release 24 hr ASV Machine #1 ea 05/28/24 06/12/24 Rx nitroglycerin 0.4 mg sublingual 0.4 mg sublingual DIRECTED PRN 06/12/24 06/12/24 Rx tablet (Nitrostat) Chest Pain #60 tabs Patient History Medical History (Updated 09/06/24 @ 12:34 by Bruno Mendiola MD) Urinary incontinence Diastasis recti Neck pain Pelvic floor dysfunction Hydronephrosis, right Cough Acute [place] (2019) Sleep apnea Claustrophobia Scoliosis Spinal stenosis Osteoarthritis [place] (hard of hearing) VERY-NO AIDS Myocardial infarction 01/2020 Kidney stones Surgical History (Updated 09/06/24 @ 12:32 by Bruno Mendiola MD) S/P repair of ventral hernia laparascopic x 2 History of esophagogastroduodenoscopy (EGD) History of colonoscopy Slow to wake up after anesthesia History of cardiac cath 01/2020 - [facility] - 1 stent - follows w/ Dr. Dailey S/P sinus surgery S/P foot surgery Left x 2, Right x 3 S/P carpal tunnel release BL S/P CARRI (total abdominal hysterectomy) S/P tonsillectomy History of bladder suspension procedure S/P cataract extraction b/l Total knee replacement status right History of total shoulder replacement b/l Family History Father , in 90s from AAA AAA (abdominal aortic aneurysm) Stroke Family history of diabetes mellitus Mother , in her 70s Lung cancer Hypertension Aunt Family history of diabetes mellitus Denies family history of Coronary heart disease Social History Smoking Status: Never smoker Second Hand Exposure: No; Do You Dip or Chew Tobacco: No; Hx Alcohol Use: Yes Alcohol type: wine Hx Substance Use: No Preferred Language: Georgian Communication Ability: Effective Visual Impairment: No Limitations Hearing Ability: Hard of Hearing Disc Sander Required: No Beliefs That Will Affect Care: None marital status: marital status details: 2 children Current Living Situation: Spouse Current Living Situation Comment: 1 story home current occupational status: retired 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 BP normotensive. Pulse 80 bpm and regular. Respirations 18 unlabored. Skin: no ecchymoses or generalized lesions. HEENT: unremarkable. Neck: JVP fci to the angle of the jaw at 90 degrees, no carotid bruits. Lungs: Prominent gastric sounds (? secondary to hiatal hernia), otherwise clear. Cardiac: regular rhythm, normal S1, absent aortic closure sound, 4/6 crescendo/decrescendo systolic ejection murmur right upper sternal border rating to the carotids, apex, and axilla, no diastolic murmur. Abdomen: benign. Extremities: 2-3+ pretibial pitting edema, pulses intact. Neurologic: normal affect and conversation, nonfocal. Results & Data Vital Signs (Past 12 Hours) Vital Signs Temp Pulse Resp BP Pulse Ox O2 Del Method O2 Flow Rate 09/06/24 10:52 97.9 F 80 18 138/74 94 Room Air 09/06/24 09:00 Nasal Cannula 2 09/06/24 07:33 97.9 F 70 17 178/72 H 90 Nasal Cannula 2 09/06/24 03:30 98.4 F 65 22 146/81 H 92 Nasal Cannula 2 Laboratory Results Hemoglobin 9.0 with normal white count and platelet count. Normal electrolytes, BUN 19, creatinine 0.87. BNP and troponin as noted. Diagnostic Findings Chest x-ray showed mild congestive heart failure. ECG showed sinus rhythm at 63 bpm with possible old anteroseptal infarct. No significant ST deviation. Echocardiogram May 2024 showed preserved LV systolic function (EF 6065%) with apical akinesis, severe aortic stenosis (valve area 0.5 cm), moderate mitral and tricuspid digitation, markedly elevated RVSP. Compared with 2022 study, progression of aortic stenosis. PG Care Time/CCT Total # of Minutes Spent Total Time Spent with Patient: Total time spent is greater than 50% in coordination of care (as documented) at patient's floor/unit and/or counseling patient: Coding Level of Care Code 69718 IN/OBS CONSULT LVL 4,60M Diagnoses (HFpEF) heart failure with preserved ejection fraction I50.30 Aortic stenosis, severe I35.0 CAD (coronary artery disease) I25.10 Bilateral lower extremity edema R60.0 Pulmonary hypertension I27.20
--- NOTE | 2024-09-06 17:11 | Electrocardiogram Report ---
Test Reason : Blood Pressure : */* mmHG Vent. 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
[2024-09-06] MEDS: METOPROLOL SUCC 50MG EXT REL TAB PO SCH (20:14)
[2024-09-06] MEDS: ENOXAPARIN INJ 40 MG/0.4 ML SYR SQ SCH (20:14)
[2024-09-06] MEDS ORDERED: rOPINIRole HCL 0.25 MG TABLET PO SCH (22:20)
[2024-09-06] MEDS: rOPINIRole HCL 0.25 MG TABLET PO SCH (23:00)
[2024-09-07] MEDS: oxyCODONE/ACETAMINOPHEN 5mg/325mg TAB PO PRN (03:34)
[2024-09-07 07:28] LABS: BUN Creatinine Ratio 22.4 (10-20); Calcium 8.5 mg/dl (8.6-10.3); Creatinine Clr Calc Pharmacy 50.1 ml/min; Magnesium 1.7 mg/dl (1.7-2.4); Potassium 3.8 mmol/L (3.5-5.1)
[2024-09-07] MEDS: ASPIRIN 81 MG ECTAB PO SCH (09:08)
[2024-09-07] MEDS: MAGNESIUM SULFATE / D5W 1 GM/100 ML BAG IV ONE (09:08)
--- NOTE | 2024-09-07 13:35 | Cardiology Progress Note ---
Date of Service September 07, 2024 Assessment & Plan (1) (HFpEF) heart failure with preserved ejection fraction: (2) Aortic stenosis, severe: (3) CAD (coronary artery disease): (4) Bilateral lower extremity edema: (5) Pulmonary hypertension: Plan Gradual clinical improvement with good daily diuresis, only minimally hypervolemic currently. Renal function stable, she did receive a dose of IV diuretic this morning, would hold diuretics tomorrow morning until her volume status is reassessed (since overdiuresis is to be avoided in the context of severe aortic stenosis). Mild bradycardia, would reduce evening metoprolol dose from 50 mg to 25 mg to allow more physiologic heart rate response in the context of HFpEF. Depending upon clinical status, decision tomorrow as to whether she can return home for a few days or whether she should remain in hospital until her planned cardiac catheterization on Tuesday. Dr. Queen will be rounding for the weekend, will ask him to check in on the patient. Dr. Dailey is her primary food beverage server, will also check in with him regarding inpatient versus outpatient management over the next several days. Admission and Anticipated Discharge Date Admission Date: September 05, 2024 Subjective Feels slightly better than yesterday, still on nasal cannula oxygen and at bedrest. No PND overnight, chronically sleeps sitting upright. Leg edema has diminished further. Input/output -1970 mL Telemetry shows sinus rhythm at 50-70 bpm with sporadic PVCs. Physical Exam Physical Exam: No acute distress. BP normotensive. Pulse 80 bpm and regular. Respirations 18 unlabored. Skin: no ecchymoses or generalized lesions. HEENT: unremarkable. Neck: JVP just above the clavicle at 90 degrees, no carotid bruits. Lungs: clear. Cardiac: regular rhythm, normal S1, absent aortic closure sound, 4/6 crescendo/decrescendo systolic ejection murmur right upper sternal border rating to the carotids, apex, and axilla, no diastolic murmur. Abdomen: benign. Extremities: 2-3+ pretibial pitting edema (less tense today), pulses intact. Neurologic: normal affect and conversation, nonfocal. Results & Data Vital Signs (Past 12 Hours) Vital Signs Temp Pulse Pulse Resp BP BP Pulse Ox 09/07/24 10:45 97.5 F L 56 L 18 124/75 95 09/07/24 10:10 09/07/24 07:14 97.7 F 58 L 17 129/72 94 09/07/24 05:40 77 09/07/24 03:38 98.6 F 65 20 146/72 H 92 O2 Del Method O2 Flow Rate 09/07/24 10:45 Nasal Cannula 2 09/07/24 10:10 Nasal Cannula 2 09/07/24 07:14 Nasal Cannula 2 09/07/24 05:40 09/07/24 03:38 Room Air Laboratory Results Normal electrolytes, BUN 19, creatinine 0.85. PG Care Time/CCT Total # of Minutes Spent Total Time Spent with Patient: Total time spent is greater than 50% in coordination of care (as documented) at patient's floor/unit and/or counseling patient: Coding Level of Care Code 94736 SUB INP/OBS CARE 3/50MIN Diagnoses (HFpEF) heart failure with preserved ejection fraction I50.30 Aortic stenosis, severe I35.0 CAD (coronary artery disease) I25.10 Bilateral lower extremity edema R60.0 Pulmonary hypertension I27.20
--- NOTE | 2024-09-07 17:22 | Hospitalist Progress Note ---
Date of Service September 07, 2024 Assessment & Plan (1) Acute on chronic heart failure with preserved ejection fraction: Plan: 84 y/o with severe admitted with acute HFpEF. was not symptomatic of heart failure previous to the last few weeks when she developed progressive edema and then dyspnea Scheduled for coronary angiogram 09/[address] Dailey for planned upcoming TAVR at [facility] Last TTE 05/2024 reviewed: normal LV, apical hypokinesis, mod conc LVH, severe with SIVA 0.5, mod MR and TR Good diuresis overnight -2 L and wt 93.7-->90.3-->85, caution not to drop preload. no longer grossly volume overloaded, discussed with Dr. Mendiola will hold a.m. dose of Lasix pending clinical exam and labs -on metoprolol succinate, decrease dose by 50% per recommendation of Dr. Mendiola, and continue losartan -sitagliptin should probably be replaced with an SGLT-2 - replaced magnesium and potassium which are in the low normal range -AM BMP, mag (2) Aortic stenosis, severe: Plan: as above (3) CAD (coronary artery disease): Plan: CAD - Post anterior STEMI 01/2020, PCI with single MORENA to mid LAD - Mild to moderate residual proximal LAD disease - added daily aspirin PO QAM, intolerant to statin therapy (4) Normocytic anemia: Plan: iron deficient and B12 deficient in 2021 check iron panel, B12 - iron stores low normal, B12 normal (5) Type 2 diabetes mellitus: Plan: T2DM - Last a1c December 2023: 6.5 - Januvia 100mg PO daily held. Because of heart failure likely will benefit from changing DPP-4 to SGLT-2 - diabetic diet, premeal correctional insulin Plan Mildly elevated INR of 1.2, minimally elevated bilirubin 1.1 - likely liver congestion from HF, TR Pulmonary hypertension, history of cryptogenic organizing pneumonia Hypertension - meds as above Dyslipidemia - intolerant of statin. LDL chol: 111, Aug 2024 FELICE - clarify on CPAP? DVT ppx - enoxaparin lives with her , can stay on one level with 1 LESLYE. OT evaluation reviewedno needs, PT evaluation reviewed recommended home with home health PT updated daughters at bedside 09/07 Admission and Anticipated Discharge Date Admission Date: September 05, 2024 Subjective continues to improve with respect to dyspnea on exertion, no longer short of breath at rest,leg swelling still significant but has improved no chest pain or lightheadedness Physical Exam 2 Physical Exam: PHYSICAL EXAMINATION Last 24h vital signs reviewed, see documentation in flowsheet General: comfortable appearing, no distress, sitting up in bed very pleasant HEENT: Normocephalic, atraumatic, pupils round and equal, sclerae anicteric, no conjunctival injection, moist mucus membranes Lungs: Normal respiratory effort. fine crackles half way up bilaterally. No wheezing Heart: Regular rate and rhythm, systolic crescendo decrescendo murmur, JVD absent Abdomen: Soft, nontender, nondistended. Bowel sounds present. Extremities: Warm, dry, well-perfused. 2+ woody bilateral lower extremity edema with dark erythema improved, no skin wrinkling around the ankles Neuro: Alert and oriented x 4, face symmetric, moves 4 extremities well Psych: Normal affect and behavior Results & Data Results & Data Vital Signs (Past 12 Hours) Vital Signs Temp Pulse Pulse Resp BP BP Pulse Ox 09/07/24 14:41 58 L 09/07/24 14:36 36.6 C 66 18 124/65 96 09/07/24 10:45 36.4 C L 56 L 18 124/75 95 09/07/24 10:10 09/07/24 07:14 36.5 C 58 L 17 129/72 94 09/07/24 05:40 77 O2 Del Method O2 Flow Rate 09/07/24 14:41 09/07/24 14:36 Nasal Cannula 2 09/07/24 10:45 Nasal Cannula 2 09/07/24 10:10 Nasal Cannula 2 09/07/24 07:14 Nasal Cannula 2 09/07/24 05:40 Laboratory Results 09/06/24 05:49 09/07/24 06:46 PG Care Time/CCT Total # of Minutes Spent Total Time Spent with Patient: Total time spent is greater than 50% in coordination of care (as documented) at patient's floor/unit and/or counseling patient: Coding Level of Care Code 18923 SUB INP/OBS CARE 2/35MIN Diagnoses Acute on chronic heart failure with preserved ejection fraction I50.33 Aortic stenosis, severe I35.0 CAD (coronary artery disease) I25.10 Normocytic anemia D64.9 Type 2 diabetes mellitus E11.9
[2024-09-07] MEDS: METOPROLOL SUCC 25MG EXT REL TAB PO SCH (20:24)
[2024-09-07] MEDS ORDERED: rOPINIRole HCL 0.25 MG TABLET PO SCH (21:00)
[2024-09-08 07:10] LABS: BUN Creatinine Ratio 22.1 (10-20); Calcium 8.9 mg/dl (8.6-10.3); Creatinine Clr Calc Pharmacy 49.1 ml/min; Magnesium 1.9 mg/dl (1.7-2.4)
--- NOTE | 2024-09-08 08:08 | Hospitalist Progress Note ---
Date of Service September 08, 2024 Assessment & Plan (1) Acute on chronic heart failure with preserved ejection fraction: Plan: 84 y/o with severe admitted with acute HFpEF. was not symptomatic of heart failure previous to the last few weeks when she developed progressive edema and then dyspnea Scheduled for coronary angiogram 09/[address] Dailey for planned upcoming TAVR at [facility] Last TTE 05/2024 reviewed: normal LV, apical hypokinesis, mod conc LVH, severe with SIVA 0.5, mod MR and TR Good diuresis again overnight -1 L and wt 93.7-->90.3-->85--> 83.4, caution not to drop preload. no longer grossly volume overloaded, hold a.m. dose of Lasix pending clinical exam today -on metoprolol succinate at 50% decreased dose, and continue losartan - replaced DPP4 with SGLT2, discussed with power transformer inspector and patient -discussed with Dr. QueenLasix 40 mg IV today for continued volume overload, AM BMP -potassium 4.0 and mag 1.9 today -AM BMP, mag (2) Aortic stenosis, severe: Plan: as above (3) CAD (coronary artery disease): Plan: CAD - Post anterior STEMI 01/2020, PCI with single MORENA to mid LAD - Mild to moderate residual proximal LAD disease - added daily aspirin PO QAM, intolerant to statin therapy (4) Normocytic anemia: Plan: iron deficient and B12 deficient in 2021 - iron stores low normal, B12 normal (5) Type 2 diabetes mellitus: Plan: T2DM - Last a1c December 2023: 6.5. ordered A1c for morning, pending - stop Januvia and replace with Jardiance 10 mg daily - diabetic diet, premeal correctional insulin - BG at goal 09/08 Plan Mildly elevated INR of 1.2, minimally elevated bilirubin 1.1 - likely liver congestion from HF, TR Pulmonary hypertension, history of cryptogenic organizing pneumonia Hypertension - meds as above Dyslipidemia - intolerant of statin. LDL chol: 111, Aug 2024 FELICE - continue CPAP DVT ppx - enoxaparin lives with her , can stay on one level with 1 LESLYE. OT evaluation reviewedno needs, PT evaluation reviewed recommended home with home health PT updated daughters at bedside daily including 09/08 Admission and Anticipated Discharge Date Admission Date: September 05, 2024 Subjective remains with some dyspnea on exertion but continues to slowly improve, leg edema also continues to improve is having pain "all over" this seems to be related to bilateral hip arthritis and also painful edema of both lower extremities Physical Exam 2 Physical Exam: PHYSICAL EXAMINATION Last 24h vital signs reviewed, see documentation in flowsheet General: comfortable appearing, no distress, sitting up in the chair today HEENT: Normocephalic, atraumatic, pupils round and equal, sclerae anicteric, no conjunctival injection, moist mucus membranes Lungs: Normal respiratory effort. fine crackles one third way up bilaterally. No wheezing Heart: Regular rate and rhythm, systolic crescendo decrescendo murmur, JVD absent sitting upright Abdomen: Soft, nontender, nondistended. Bowel sounds present. Extremities: Warm, dry, well-perfused. 2+ woody bilateral lower extremity edema with dark erythema - continues improving, more skin wrinkling Neuro: Alert and oriented x 4, face symmetric, moves 4 extremities well Psych: Normal affect and behavior Results & Data Results & Data Vital Signs (Past 12 Hours) Vital Signs Temp Pulse Pulse Resp BP Pulse Ox O2 Del Method 09/08/24 07:32 36.7 C 65 17 158/76 H 94 Nasal Cannula 09/08/24 03:43 36.6 C 61 16 136/73 96 Nasal Cannula 09/07/24 23:31 36.6 C 62 18 134/66 96 Nasal Cannula 09/07/24 22:53 69 09/07/24 22:00 Nasal Cannula O2 Flow Rate 09/08/24 07:32 2 09/08/24 03:43 2.0 09/07/24 23:31 2.0 09/07/24 22:53 09/07/24 22:00 2 Laboratory Results 09/06/24 05:49 09/08/24 06:03 mag 1.9 PG Care Time/CCT Total # of Minutes Spent Total Time Spent with Patient: Total time spent is greater than 50% in coordination of care (as documented) at patient's floor/unit and/or counseling patient: Coding Level of Care Code 43810 SUB INP/OBS CARE 2/35MIN Diagnoses Acute on chronic heart failure with preserved ejection fraction I50.33 Aortic stenosis, severe I35.0 CAD (coronary artery disease) I25.10 Normocytic anemia D64.9 Type 2 diabetes mellitus E11.9
[2024-09-08] MEDS: FUROSEMIDE 40 MG/4 ML VIAL IV ONE (09:38)
--- NOTE | 2024-09-08 10:13 | Cardiology Progress Note ---
Date of Service September 08, 2024 Assessment & Plan (1) Acute on chronic heart failure with preserved ejection fraction: (2) Aortic stenosis, severe: (3) Dyslipidemia: (4) CAD (coronary artery disease): (5) HTN (hypertension): (6) S/P coronary artery stent placement: (7) Pulmonary hypertension: (8) Mitral regurgitation: Plan ASSESSMENT/PLAN: 1. Acute on chronic heart failure with preserved EF: She still appears hypervolemic and is still requiring supplemental oxygen. Recommend another dose of Lasix 40 mg IV today. Discussed with nursing staff. Will reassess tomorrow. Heart failure likely related to her severe aortic stenosis. Low-sodium diet, less than 2000 mg daily. Daily weights. Strict I's and O's. Diabetic regimen is being adjusted by primary hospitalist service. SGLT2 inhibitor okay from a cardiac standpoint as it is also indicated from a heart failure perspective. 2. Aortic stenosis: Severe. She is already scheduled as an outpatient for coronary angiography in anticipation of aortic valve replacement. If she remains hospitalized, can try to facilitate the procedure for Tuesday. She inquired about coronary angiography. This was discussed with her. 3. CAD s/p LAD PCI: Continue aspirin 81 mg daily indefinitely. No angina. Statin intolerant. 4. Hypertension: Blood pressure mostly normotensive yesterday. Mildly hypertensive this morning. Continue current regimen (metoprolol and losartan). Diuretic redosed this morning. 5. Pulmonary hypertension: Severe pulmonary hypertension reported on previous echo. Cardiac catheterization is pending next week, including right heart cath to further investigate. 6. Mitral and tricuspid regurgitation: Described as nonsevere on 05/29/2024 echo. Can consider repeat imaging next week. 7. Dyslipidemia: Statin intolerant. As per primary brushing machine operator. 8. Disposition: Cardiology will continue to follow. Patient care discussed with Dr. Posey, primary hospitalist. Admission and Anticipated Discharge Date Admission Date: September 05, 2024 Subjective Patient seen this morning. She was unaccompanied in her hospital room. She feels better since presentation but is not yet back to baseline. She continues with 2 L of supplemental oxygen. Nursing staff tried to wean her yesterday but she desatted to 82% with minimal walking in her room. She denies orthopnea while on supplemental oxygen. She believes that her edema has improved. She denies chest pain, syncope, near syncope, or palpitations. She admits that she feels weaker than presentation. Physical Exam Physical Exam: Gen.: No acute distress. Alert. HEENT: Anicteric sclera. Neck: Mild JVD. Cardiac: Regular. Normal S1-S2. 2/6 late peaking systolic ejection murmur heard best at right upper sternal border. Pulmonary: Clear to auscultation bilaterally without wheezes, rales, or rhonchi. Abdomen: Soft, nontender, nondistended, with normoactive bowel sounds. No bruits noted. Extremities: 2+ radial pulses bilaterally. 2+ posterior tibialis pulses bilaterally. 1+ bilateral lower extremity edema. No cyanosis. Psychiatric: Affect appears appropriate. Results & Data Vital Signs (Past 12 Hours) Vital Signs Temp Pulse Pulse Resp BP Pulse Ox O2 Del Method 09/08/24 07:32 36.7 C 65 17 158/76 H 94 Nasal Cannula 09/08/24 03:43 36.6 C 61 16 136/73 96 Nasal Cannula 09/07/24 23:31 36.6 C 62 18 134/66 96 Nasal Cannula 09/07/24 22:53 69 O2 Flow Rate 09/08/24 07:32 2 09/08/24 03:43 2.0 09/07/24 23:31 2.0 09/07/24 22:53 Intake & Output 09/06/24 09/07/24 09/08/24 09/09/24 06:59 06:59 06:59 06:59 Intake Total 300 / 300 680 / 680 780 / 780 Output Total 3050 / 3050 2750 / 2750 1875 / 1875 Balance -2750 / -2750 -2070 / -2070 -1095 / -1095 Weight 199 lb 1.239 oz 187 lb 9.814 oz 183 lb 13.848 oz Laboratory Results Laboratory Results - last 24 hr 09/07/24 09/07/24 09/07/24 11:04 16:10 21:09 Sodium Potassium Chloride Carbon Dioxide Anion Gap BUN Creatinine Est Cr Clr Drug Dosing eGFR BUN/Creatinine Ratio Glucose POC Glucose 113 H 144 H 141 H Calcium Magnesium 09/08/24 09/08/24 06:03 07:18 Sodium 138 Potassium 4.0 Chloride 99 Carbon Dioxide 32 Anion Gap 7 BUN 19 Creatinine 0.86 Est Cr Clr Drug Dosing 49.1 eGFR 65.75 BUN/Creatinine Ratio 22.1 H Glucose 137 H POC Glucose 126 H Calcium 8.9 Magnesium 1.9 Diagnostic Findings Labs reviewed and notable for normal renal function, normal potassium, normal magnesium. Telemetry personally reviewed: Sinus rhythm. Echo 05/29/2024 report reviewed: Normal LV systolic function. EF 60 to 65%. Akinetic apex. Severe aortic stenosis. Moderate MR. Moderate TR. Chart reviewed. Medications Administered Current Inpatient Medications Aspirin (Aspirin 81 Mg Ectab) 81 mg PO QAM [facility] Stop: 10/07/24 08:59 Last Admin: 09/08/24 09:29 Dose: 81 mg Dextrose (Dextrose 50% 50 Ml Syringe) 25 - 50 ml IV UD PRN; Protocol PRN Reason: Hypoglycemia Protocol Stop: 10/05/24 22:30 Enoxaparin Sodium (Enoxaparin Inj 40 Mg/0.4 Ml Syr) 40 mg SQ QPM [facility] Stop: 10/06/24 20:59 Last Admin: 09/07/24 20:21 Dose: 40 mg Gabapentin (Gabapentin 300 Mg Cap) 300 mg PO [facility] Stop: 10/05/24 22:19 Last Admin: 09/07/24 20:22 Dose: 300 mg Glucagon (Glucagon For Inj 1 Mg Vial) 1 mg SQ UD PRN; Protocol PRN Reason: Hypoglycemia Protocol Stop: 10/05/24 22:30 Glucose (Glucose 40% Gel 15 Gm Tube) 15 - 30 gm PO UD PRN; Protocol PRN Reason: Hypoglycemia Protocol Stop: 10/05/24 22:30 Glucose (Glucose 10 Tab/Tube) 4 - 8 tab PO UD PRN; Protocol PRN Reason: Hypoglycemia Protocol Stop: 10/05/24 22:30 Insulin Aspart (Insulin Aspart Per Unit Charge) 0 units SC ACHS [facility] Stop: 10/06/24 07:29 Last Admin: 09/08/24 09:23 Dose: Not Given Losartan Potassium (Losartan Potassium 25 Mg Tab) 25 mg PO QAM [facility] Stop: 10/06/24 08:59 Last Admin: 09/08/24 09:29 Dose: 25 mg Metoprolol Succinate (Metoprolol Succ 25mg Ext Rel Tab) 25 mg PO HS [facility] Stop: 10/07/24 20:59 Last Admin: 09/07/24 20:24 Dose: 25 mg Miscellaneous (Carbohydrates For Hypoglycemia ) 15 - 30 gm PO UD PRN PRN Reason: Hypoglycemia Protocol Stop: 10/05/24 22:30 Oxycodone/Acetaminophen (Oxycodone/Acetaminophen 5mg/325mg Tab) 1 tab PO Q4H PRN PRN Reason: Pain Stop: 09/21/24 03:02 Last Admin: 09/08/24 09:29 Dose: 1 tab Pantoprazole Sodium (Pantoprazole 40 Mg Tab) 40 mg PO QAM [facility] Stop: 10/06/24 08:59 Last Admin: 09/08/24 09:29 Dose: 40 mg Potassium Chloride (Potassium Chloride Crtab 20 Meq Tabcr) 20 meq PO QAM [facility] Stop: 10/06/24 08:59 Last Admin: 09/08/24 09:29 Dose: 20 meq Ropinirole HCl (Ropinirole Hcl 0.25 Mg Tablet) 0.5 mg PO HS [facility] Stop: 10/06/24 22:59 Last Admin: 09/07/24 20:22 Dose: 0.5 mg PG Care Time/CCT Total # of Minutes Spent Total Time Spent with Patient: Total time spent is greater than 50% in coordination of care (as documented) at patient's floor/unit and/or counseling patient: Coding Level of Care Code 56428 SUB INP/OBS CARE 3/50MIN Diagnoses Acute on chronic heart failure with preserved ejection fraction I50.33 Aortic stenosis, severe I35.0 Dyslipidemia E78.5 CAD (coronary artery disease) I25.10 Essential hypertension I10 Hypertension type: essential hypertension S/P coronary artery stent placement Z95.5 Pulmonary hypertension I27.20 Mitral regurgitation I34.0 (5) HTN (hypertension) Hypertension type: essential hypertension Qualified Code(s): I10 - Essential (primary) hypertension
[2024-09-09 06:10] LABS: BUN Creatinine Ratio 24.4 (10-20); Creatinine Clr Calc Pharmacy 46.6 ml/min; Potassium 4.1 mmol/L (3.5-5.1)
[2024-09-09 07:24] LABS: Estimated Average Glucose 143 mg/dl; Hemoglobin A1C 6.6 % (4.5-5.6)
[2024-09-09] MEDS: EMPAGLIFLOZIN 10 MG TAB PO SCH (08:37)
[2024-09-09] MEDS: FUROSEMIDE 40 MG/4 ML VIAL IV ONE (08:39)
--- NOTE | 2024-09-09 13:16 | Hospitalist Progress Note ---
Date of Service September 09, 2024 Assessment & Plan (1) Acute on chronic heart failure with preserved ejection fraction: Plan: 84 y/o with severe admitted with acute HFpEF. was not symptomatic of heart failure previous to the last few weeks when she developed progressive edema and then dyspnea Scheduled for coronary angiogram 09/[address] Dailey for planned upcoming TAVR at [facility] Last TTE 05/2024 reviewed: normal LV, apical hypokinesis, mod conc LVH, severe with SIVA 0.5, mod MR and TR -on metoprolol succinate at 50% decreased dose, and continue losartan - replaced DPP4 with SGLT2, discussed with structural designer and patient - that -1200 mL and down about a kilo overnight - remains mildly volume overloaded and furosemide 40 mg x 1 IV ordered today by structural designer -potassium 4.1 and mag 2.0 today -AM BMP, mag we will see if her coronary angiogram can be moved up to tomorrow instead of Tuesday, made n.p.o. after midnight (2) Aortic stenosis, severe: Plan: as above (3) CAD (coronary artery disease): Plan: CAD - Post anterior STEMI 01/2020, PCI with single MORENA to mid LAD - Mild to moderate residual proximal LAD disease - daily aspirin PO QAM, intolerant to statin therapy (4) Normocytic anemia: Plan: iron deficient and B12 deficient in 2021 - iron stores low normal, B12 normal (5) Type 2 diabetes mellitus: Plan: T2DM - Last a1c December 2023: 6.5. ordered A1c for morning, pending - stop Januvia and replace with Jardiance 10 mg daily - diabetic diet, premeal correctional insulin - BG at goal 09/08 Plan Mildly elevated INR of 1.2, minimally elevated bilirubin 1.1 - likely liver congestion from HF, TR Pulmonary hypertension, history of cryptogenic organizing pneumonia Hypertension - meds as above Dyslipidemia - intolerant of statin. LDL chol: 111, Aug 2024 FELICE - continue CPAP DVT ppx - enoxaparin lives with her , can stay on one level with 1 LESLYE. OT evaluation reviewedno needs, PT evaluation reviewed recommended home with home health PT updated daughters at bedside 09/08 Admission and Anticipated Discharge Date Admission Date: September 05, 2024 Subjective slowly improving with respect to dyspnea and leg edema no chest pain Physical Exam 2 Physical Exam: PHYSICAL EXAMINATION Last 24h vital signs reviewed, see documentation in flowsheet General: comfortable appearing, no distress, lying in bed talking on phone HEENT: Normocephalic, atraumatic, pupils round and equal, sclerae anicteric, no conjunctival injection, moist mucus membranes Lungs: Normal respiratory effort. fine crackles half way up bilaterally. No wheezing Heart: Regular rate and rhythm, systolic crescendo decrescendo murmur, JVP is about 12 cm Abdomen: Soft, nontender, nondistended. Bowel sounds present. Extremities: Warm, dry, well-perfused. 1-2+ woody bilateral lower extremity edema with dark erythema - continues improving, less firm, more skin wrinkling Neuro: Alert and oriented x 4, face symmetric, moves 4 extremities well Psych: Normal affect and behavior Results & Data Results & Data Vital Signs (Past 12 Hours) Vital Signs Temp Pulse Pulse Resp BP BP Pulse Ox 09/09/24 10:50 36.3 C L 61 18 101/57 L 94 09/09/24 09:49 09/09/24 07:52 36.5 C 66 18 158/71 H 92 09/09/24 05:45 57 L 09/09/24 04:07 36.7 C 66 18 128/64 94 O2 Del Method O2 Flow Rate 09/09/24 10:50 Nasal Cannula 2 09/09/24 09:49 Nasal Cannula 2 09/09/24 07:52 Nasal Cannula 2 09/09/24 05:45 09/09/24 04:07 Nasal Cannula 2 Laboratory Results 09/06/24 05:49 09/09/24 05:18 PG Care Time/CCT Total # of Minutes Spent Total Time Spent with Patient: Total time spent is greater than 50% in coordination of care (as documented) at patient's floor/unit and/or counseling patient: Coding Level of Care Code 90601 SUB INP/OBS CARE 2/35MIN Diagnoses Acute on chronic heart failure with preserved ejection fraction I50.33 Aortic stenosis, severe I35.0 CAD (coronary artery disease) I25.10 Normocytic anemia D64.9 Type 2 diabetes mellitus E11.9
--- NOTE | 2024-09-09 14:24 | Cardiology Progress Note ---
Date of Service September 09, 2024 Assessment & Plan (1) Acute on chronic heart failure with preserved ejection fraction: (2) Aortic stenosis, severe: (3) Dyslipidemia: (4) CAD (coronary artery disease): (5) HTN (hypertension): (6) S/P coronary artery stent placement: (7) Pulmonary hypertension: (8) Mitral regurgitation: Plan ASSESSMENT/PLAN: 1. Acute on chronic heart failure with preserved EF: Remains hypervolemic but improving daily. Ordered another dose of Lasix 40 mg IV today. Will hold off on dosing tomorrow morning before cardiac catheterization. Heart failure likely related to her severe aortic stenosis. Low-sodium diet, less than 2000 mg daily. Daily weights. Strict I's and O's. Diabetic regimen is being adjusted by primary hospitalist service. SGLT2 inhibitor okay from a cardiac standpoint as it is also indicated from a heart failure perspective. 2. Aortic stenosis: Severe. She is already scheduled as an outpatient for coronary angiography in anticipation of aortic valve replacement. Cardiac catheterization likely tomorrow. N.p.o. after midnight. 3. CAD s/p LAD PCI: Continue aspirin 81 mg daily indefinitely. No angina. Statin intolerant. 4. Hypertension: Blood pressure mostly normotensive. Continue current regimen. 5. Pulmonary hypertension: Severe pulmonary hypertension reported on previous echo. Cardiac catheterization likely tomorrow, including right heart cath to further investigate. 6. Mitral and tricuspid regurgitation: Described as nonsevere on 05/29/2024 echo. Can consider repeat imaging next week. 7. Dyslipidemia: Statin intolerant. As per primary corporate director. 8. Disposition: Cardiology will continue to follow. Dr. Dailey, her primary corporate director, likely to resume her cardiology care tomorrow. Patient care communicated with Dr. Posey, primary hospitalist. Admission and Anticipated Discharge Date Admission Date: September 05, 2024 Subjective Patient seen earlier today. She was alone in her hospital room. Her breathing continues to improve but still requires supplemental oxygen. She denies chest pain, syncope, near syncope, palpitations. Her lower extremity edema continues to improve daily. She denies bleeding. Physical Exam Physical Exam: Gen.: No acute distress. Alert. HEENT: Anicteric sclera. Neck: No JVD. Hepatojugular reflux noted. Cardiac: Regular. Normal S1-S2. 2/6 late peaking systolic ejection murmur heard best at right upper sternal border. Pulmonary: Clear to auscultation bilaterally without wheezes, rales, or rhonchi. Abdomen: Soft, nontender, nondistended, with normoactive bowel sounds. No bruits noted. Extremities: 2+ radial pulses bilaterally. 2+ posterior tibialis pulses bilaterally. 1+ bilateral lower extremity edema. No cyanosis. Psychiatric: Affect appears appropriate. Results & Data Vital Signs (Past 12 Hours) Vital Signs Temp Pulse Pulse Resp BP BP Pulse Ox 09/09/24 13:51 71 09/09/24 10:50 36.3 C L 61 18 101/57 L 94 09/09/24 09:49 09/09/24 07:52 36.5 C 66 18 158/71 H 92 09/09/24 05:45 57 L 09/09/24 04:07 36.7 C 66 18 128/64 94 O2 Del Method O2 Flow Rate 09/09/24 13:51 09/09/24 10:50 Nasal Cannula 2 09/09/24 09:49 Nasal Cannula 2 09/09/24 07:52 Nasal Cannula 2 09/09/24 05:45 09/09/24 04:07 Nasal Cannula 2 Intake & Output 09/07/24 09/08/24 09/09/24 09/10/24 06:59 06:59 06:59 06:59 Intake Total 680 / 680 780 / 780 240 / 240 240 / 240 Output Total 2750 / 2750 1875 / 1875 1500 / 1500 1500 / 1500 Balance -2070 / -2070 -1095 / -1095 -1260 / -1260 -1260 / -1260 Weight 187 lb 9.814 oz 183 lb 13.848 oz 181 lb 15.865 oz Laboratory Results Laboratory Results - last 24 hr 09/08/24 09/08/24 09/09/24 16:17 20:52 05:18 Sodium 140 Potassium 4.1 Chloride 98 Carbon Dioxide 35 H Anion Gap 7 BUN 22 Creatinine 0.90 Est Cr Clr Drug Dosing 46.6 eGFR 62.26 BUN/Creatinine Ratio 24.4 H Glucose 136 H POC Glucose 169 H 160 H Estimat Average Glucose 143 Hemoglobin A1c 6.6 H Calcium 9.0 Magnesium 2.0 09/09/24 09/09/24 07:10 11:10 Sodium Potassium Chloride Carbon Dioxide Anion Gap BUN Creatinine Est Cr Clr Drug Dosing eGFR BUN/Creatinine Ratio Glucose POC Glucose 124 H 122 H Estimat Average Glucose Hemoglobin A1c Calcium Magnesium Diagnostic Findings Telemetry personally reviewed: Sinus rhythm. No arrhythmia. Labs reviewed and notable for normal potassium, stable renal function. Chart reviewed. Medications Administered Current Inpatient Medications Aspirin (Aspirin 81 Mg Ectab) 81 mg PO QAM [facility] Stop: 10/07/24 08:59 Last Admin: 09/09/24 08:37 Dose: 81 mg Dextrose (Dextrose 50% 50 Ml Syringe) 25 - 50 ml IV UD PRN; Protocol PRN Reason: Hypoglycemia Protocol Stop: 10/05/24 22:30 Empagliflozin (Empagliflozin 10 Mg Tab) 10 mg PO DAILY [facility] Stop: 10/09/24 08:59 Last Admin: 09/09/24 08:37 Dose: 10 mg Enoxaparin Sodium (Enoxaparin Inj 40 Mg/0.4 Ml Syr) 40 mg SQ QPM [facility] Stop: 10/06/24 20:59 Last Admin: 09/08/24 19:41 Dose: 40 mg Gabapentin (Gabapentin 300 Mg Cap) 300 mg PO [facility] Stop: 10/05/24 22:19 Last Admin: 09/08/24 19:42 Dose: 300 mg Glucagon (Glucagon For Inj 1 Mg Vial) 1 mg SQ UD PRN; Protocol PRN Reason: Hypoglycemia Protocol Stop: 10/05/24 22:30 Glucose (Glucose 40% Gel 15 Gm Tube) 15 - 30 gm PO UD PRN; Protocol PRN Reason: Hypoglycemia Protocol Stop: 10/05/24 22:30 Glucose (Glucose 10 Tab/Tube) 4 - 8 tab PO UD PRN; Protocol PRN Reason: Hypoglycemia Protocol Stop: 10/05/24 22:30 Insulin Aspart (Insulin Aspart Per Unit Charge) 0 units SC ACHS [facility] Stop: 10/06/24 07:29 Last Admin: 09/09/24 11:19 Dose: Not Given Losartan Potassium (Losartan Potassium 25 Mg Tab) 25 mg PO QAM [facility] Stop: 10/06/24 08:59 Last Admin: 09/09/24 08:38 Dose: 25 mg Metoprolol Succinate (Metoprolol Succ 25mg Ext Rel Tab) 25 mg PO HS [facility] Stop: 10/07/24 20:59 Last Admin: 09/08/24 19:43 Dose: 25 mg Miscellaneous (Carbohydrates For Hypoglycemia ) 15 - 30 gm PO UD PRN PRN Reason: Hypoglycemia Protocol Stop: 10/05/24 22:30 Oxycodone/Acetaminophen (Oxycodone/Acetaminophen 5mg/325mg Tab) 1 tab PO Q4H PRN PRN Reason: Pain Stop: 09/21/24 03:02 Last Admin: 09/09/24 08:38 Dose: 1 tab Pantoprazole Sodium (Pantoprazole 40 Mg Tab) 40 mg PO QAM [facility] Stop: 10/06/24 08:59 Last Admin: 09/09/24 08:38 Dose: 40 mg Potassium Chloride (Potassium Chloride Crtab 20 Meq Tabcr) 20 meq PO QAM [facility] Stop: 10/06/24 08:59 Last Admin: 09/09/24 08:37 Dose: 20 meq Ropinirole HCl (Ropinirole Hcl 0.25 Mg Tablet) 0.5 mg PO HS [facility] Stop: 10/06/24 22:59 Last Admin: 09/08/24 19:42 Dose: 0.5 mg PG Care Time/CCT Total # of Minutes Spent Total Time Spent with Patient: Total time spent is greater than 50% in coordination of care (as documented) at patient's floor/unit and/or counseling patient: Coding Level of Care Code 69163 SUB INP/OBS CARE 3/50MIN Diagnoses Acute on chronic heart failure with preserved ejection fraction I50.33 Aortic stenosis, severe I35.0 Dyslipidemia E78.5 CAD (coronary artery disease) I25.10 Essential hypertension I10 Hypertension type: essential hypertension S/P coronary artery stent placement Z95.5 Pulmonary hypertension I27.20 Mitral regurgitation I34.0 (5) HTN (hypertension) Hypertension type: essential hypertension Qualified Code(s): I10 - Essential (primary) hypertension
[2024-09-10] MEDS: HYDROmorphone INJ 0.5 MG/0.5 ML SYR IV STA (04:10)
[2024-09-10 07:48] LABS: Appearance Urine Clear (Clear); Bacteria Urine Automated None Seen (None Seen); Bilirubin Urine Negative (Negative); Blood Urine Negative (Negative); Cast Urine Automated 0-2 /lpf (0-2); Color Urine Yellow; Glucose Urine UA 3+ (Negative); Ketones Urine Negative (Negative); Leukocyte Esterase Urine Negative (Negative); Nitrite Urine Negative (Negative); Protein Urine 1+ (Negative); RBC Urine Automated 0-2 /hpf (0-2); Specific Gravity Urine 1.024 (1.000-1.030); Urobilinogen Urine Negative (Negative); WBC Urine Automated 0-5 /hpf (0-5); pH Urine 7.5 (4.5-7.5)
[2024-09-10 07:58] LABS: BUN Creatinine Ratio 25.3 (10-20); Calcium 9.6 mg/dl (8.6-10.3); Creatinine Clr Calc Pharmacy 46.1 ml/min; Potassium 4.5 mmol/L (3.5-5.1)
[2024-09-10] MEDS: POLYETHYLENE (MIRALAX) 17 GM PACK PO SCH (11:57)
--- NOTE | 2024-09-10 14:18 | Hospitalist Progress Note ---
Date of Service September 10, 2024 Assessment & Plan (1) Acute on chronic heart failure with preserved ejection fraction: Plan: 84 y/o with severe admitted with acute HFpEF. was not symptomatic of heart failure previous to the last few weeks when she developed progressive edema and then dyspnea Scheduled for coronary angiogram 09/[address] Dailey for planned upcoming TAVR at [facility] Last TTE 05/2024 reviewed: normal LV, apical hypokinesis, mod conc LVH, severe with SIVA 0.5, mod MR and TR -on metoprolol succinate at 50% decreased dose, and continue losartan - replaced DPP4 with SGLT2, discussed with director of purchasing and patient - remains mildly volume overloaded, -1300 overnight weight unchanged, discussed with Dr. Dailey ordered Lasix 40 mg IV x 1, check BMP and mag in morning - cardiology unable to move her cath up to today, coronary angiogram will be done tomorrow likely home tomorrow afternoon versus Tuesday depending on timing of cath and results (2) Aortic stenosis, severe: Plan: as above (3) CAD (coronary artery disease): Plan: CAD - Post anterior STEMI 01/2020, PCI with single MORENA to mid LAD - Mild to moderate residual proximal LAD disease - daily aspirin PO QAM, intolerant to statin therapy - remains stable (4) Normocytic anemia: Plan: iron deficient and B12 deficient in 2021 - iron stores low normal, B12 normal (5) Type 2 diabetes mellitus: Plan: T2DM - Last a1c December 2023: 6.5. ordered A1c for morning, pending - stop Januvia and replace with Jardiance 10 mg daily - diabetic diet, premeal correctional insulin - blood glucose remains well-controlled Plan Mildly elevated INR of 1.2, minimally elevated bilirubin 1.1 - likely liver congestion from HF, TR - check CMP and INR in a.m. Pulmonary hypertension, history of cryptogenic organizing pneumonia Hypertension - meds as above Dyslipidemia - intolerant of statin. LDL chol: 111, Aug 2024 FELICE - continue CPAP - CO2 up mildly because not using CPAP this week, discussed DVT ppx - enoxaparin lives with her , can stay on one level with 1 LESLYE. OT evaluation reviewedno needs, PT evaluation reviewed recommended home with home health PT I updated one of her daughters who is at bedside this morning Admission and Anticipated Discharge Date Admission Date: September 05, 2024 Subjective there is been some confusion about her CPAP and she has not been using it at night, her daughter took her home machine back home leg edema continues to improve, dyspnea on exertion improved, strength and exertional tolerance improved Physical Exam 2 Physical Exam: PHYSICAL EXAMINATION Last 24h vital signs reviewed, see documentation in flowsheet General: comfortable appearing, no distress, awake and alert seen early HEENT: Normocephalic, atraumatic, pupils round and equal, sclerae anicteric, no conjunctival injection, moist mucus membranes Lungs: Normal respiratory effort. posterior crackles about fdc up unchanged, no wheezing nonlabored Heart: Regular rate and rhythm, systolic crescendo decrescendo murmur, JVP is about 10-12 cm Abdomen: Soft, nontender, nondistended. Bowel sounds present. Extremities: Warm, dry, well-perfused. 1+ bilateral lower extremity edema with dark erythema - improved today Neuro: Alert and oriented x 4, face symmetric, moves 4 extremities well Psych: Normal affect and behavior Results & Data Results & Data Vital Signs (Past 12 Hours) Vital Signs Temp Pulse Pulse Resp BP BP Pulse Ox 09/10/24 11:33 36.8 C 86 18 156/85 H 94 09/10/24 08:00 09/10/24 07:48 36.7 C 61 18 136/61 90 09/10/24 05:10 67 09/10/24 04:00 36.7 C 65 19 137/70 94 O2 Del Method O2 Flow Rate 09/10/24 11:33 Nasal Cannula 2.0 09/10/24 08:00 Nasal Cannula 2 09/10/24 07:48 Nasal Cannula 2.0 09/10/24 05:10 09/10/24 04:00 Nasal Cannula 2 Laboratory Results 09/06/24 05:49 09/10/24 07:07 PG Care Time/CCT Total # of Minutes Spent Total Time Spent with Patient: Total time spent is greater than 50% in coordination of care (as documented) at patient's floor/unit and/or counseling patient: Coding Level of Care Code 85843 SUB INP/OBS CARE 2/35MIN Diagnoses Acute on chronic heart failure with preserved ejection fraction I50.33 Aortic stenosis, severe I35.0 CAD (coronary artery disease) I25.10 Normocytic anemia D64.9 Type 2 diabetes mellitus E11.9
[2024-09-10] MEDS: FUROSEMIDE 40 MG/4 ML VIAL IV ONE (14:26)
[2024-09-11 06:38] LABS: Albumin Level 3.3 gm/dl (3.4-5.0); Bilirubin,Total 0.5 mg/dl (0.2-1.0); Calcium 9.9 mg/dl (8.6-10.3); Creatinine Clr Calc Pharmacy 41.1 ml/min; Globulin 3.3 gm/dl (2.5-4.0); Magnesium 2.2 mg/dl (1.7-2.4); Potassium 4.5 mmol/L (3.5-5.1); Total Protein 6.6 gm/dl (6.0-8.3)
--- NOTE | 2024-09-11 07:01 | Hospitalist Progress Note ---
Date of Service September 11, 2024 Assessment & Plan (1) Acute on chronic heart failure with preserved ejection fraction: Plan: 84 y/o with presumed severe admitted with acute HFpEF. was not symptomatic of heart failure previous to the last few weeks when she developed progressive edema and then dyspnea Had been previously scheduled for coronary angiogram 09/[address] Dailey to better evaluate , upcoming potential TAVR at [facility] Last TTE 05/2024 reviewed: normal LV, apical hypokinesis, mod conc LVH, severe with SIVA 0.5, mod MR and TR Coronary angiogram done today as planned - discussed with Dr. Dailey - appeared euvolemic based on cath, appears more moderate so not needing TAVR right now, PCI to 70% LAD lesion with stent placed inside of preexisting stent Diuresed this admission with lasix 40 mg IV daily, tolerated well. Now euvolemic based on cath so continue maintenance diuretic (probably lasix 40 po daily - ordered for tomorrow) Currently on reduced dose of metoprolol and ARB per cardiology - discuss discharge dosing Planning home tomorrow after recovery from PCI, home health PT OT pedodontist made to CHF clinic (2) Aortic stenosis, severe: Plan: Found to be moderate based on coronary angiogram 09/[address] Dailey (3) CAD (coronary artery disease): Plan: CAD - History of anterior STEMI 01/2020, PCI with single MORENA to mid LAD, mild to moderate residual proximal LAD disease Coronary angiogram 09/11 with PCI to 70% LAD lesion site of previous stent - continue ASA and plavix - intolerant of statin LDL chol: 111, Aug 2024 - follow up with Dr. Dailey (4) Normocytic anemia: Plan: iron deficient and B12 deficient in 2021 - iron stores low normal, B12 normal (5) Type 2 diabetes mellitus: Plan: T2DM - Last a1c December 2023: 6.5. ordered A1c for morning, pending - stop Januvia and replace with Jardiance 10 mg daily - diabetic diet, premeal correctional insulin - blood glucose remains well-controlled - reviewed 09/11 Plan Mildly elevated INR of 1.2, minimally elevated bilirubin 1.1 - liver congestion from HF, TR -CMP and INR 09/11 - both have normalized Pulmonary hypertension, history of cryptogenic organizing pneumonia Hypertension - meds as above Dyslipidemia - intolerant of statin. FELICE - continue CPAP - CO2 up mildly because not using CPAP this week, contraction alkalosis, discussed DVT ppx - enoxaparin lives with her , can stay on one level with 1 LESLYE. OT evaluation reviewedno needs, PT evaluation reviewed recommended home with home health PT I updated one of her daughters who is at bedside 09/10, 09/11 Admission and Anticipated Discharge Date Admission Date: September 05, 2024 Subjective had coronary angiogram this AM seen in room immediately after feels well, no CP or dyspnea at bedside Physical Exam 2 Physical Exam: PHYSICAL EXAMINATION Last 24h vital signs reviewed, see documentation in flowsheet General: sitting up awake in bed HEENT: Normocephalic, atraumatic, pupils round and equal, sclerae anicteric, no conjunctival injection, moist mucus membranes Lungs: Normal respiratory effort. CTA anteriorly, bilateral posterior crackles 1/2 way up Heart: Regular rate and rhythm, systolic crescendo decrescendo murmur, no JVD Abdomen: Soft, nontender, nondistended. Bowel sounds present. Extremities: Warm, dry, well-perfused. mild bilateral lower extremity edema with dark erythema - massive improvement since admission R wrist in closure device Neuro: Alert and oriented x 4, face symmetric, moves 4 extremities well Psych: Normal affect and behavior Results & Data Results & Data Vital Signs (Past 12 Hours) Vital Signs Temp Pulse Pulse Resp BP BP Pulse Ox 09/11/24 02:30 36.5 C 60 18 127/71 96 09/10/24 23:23 71 09/10/24 22:40 36.5 C 69 18 140/70 94 09/10/24 21:00 09/10/24 19:21 37 C 72 18 139/77 94 O2 Del Method O2 Flow Rate 09/11/24 02:30 Nasal Cannula 09/10/24 23:23 09/10/24 22:40 Nasal Cannula 09/10/24 21:00 Nasal Cannula 2 09/10/24 19:21 Nasal Cannula Laboratory Results 09/06/24 05:49 09/11/24 05:56 PG Care Time/CCT Total # of Minutes Spent Total Time Spent with Patient: Total time spent is greater than 50% in coordination of care (as documented) at patient's floor/unit and/or counseling patient: Coding Level of Care Code 09170 SUB INP/OBS CARE 2/35MIN Diagnoses Acute on chronic heart failure with preserved ejection fraction I50.33 Aortic stenosis, severe I35.0 CAD (coronary artery disease) I25.10 Normocytic anemia D64.9 Type 2 diabetes mellitus E11.9
--- NOTE | 2024-09-11 08:09 | Pre Anesthesia Assessment ---
Date of Service September 11, 2024 Pre Sedation Assessment Vital Signs Temp Pulse Pulse Resp BP BP Pulse Ox 09/11/24 07:47 98.4 F 68 18 178/98 H 98 09/11/24 02:30 97.7 F 60 18 127/71 96 09/10/24 23:23 71 09/10/24 22:40 97.7 F 69 18 140/70 94 09/10/24 21:00 09/10/24 19:21 98.6 F 72 18 139/77 94 09/10/24 13:10 74 09/10/24 11:33 98.2 F 86 18 156/85 H 94 O2 Del Method O2 Flow Rate 09/11/24 07:47 Nasal Cannula 2.0 09/11/24 02:30 Nasal Cannula 09/10/24 23:23 09/10/24 22:40 Nasal Cannula 09/10/24 21:00 Nasal Cannula 2 09/10/24 19:21 Nasal Cannula 09/10/24 13:10 09/10/24 11:33 Nasal Cannula 2.0 Cardiovascular + regular rate Respiratory + respiratory effort normal Pre-Sedation Airway Assessment Smoking Status: Never smoker Hx Sleep Apnea: No Hx Difficult Intubation: No Thyromental Distance: < 3.5 Finger Breadths Oral Cavity: + Dental Abnormalities Mallampati Class: III ASA: ASA3 Procedure Planning Contraindications for Sedation: none Current Medications Reviewed: Yes Notes The planned sedation has been discussed with the patient. Informed Consent was obtained. I have identified the patient, determined the appropriateness of sedation and have assessed the patient immediately prior to the procedure. All medicine(s) and interventions are by my order.
[2024-09-11] MEDS: diphenhydrAMINE 50 MG/ML VIAL ONE (10:47)
[2024-09-11] MEDS: niCARdipine 2,000 MCG/20 ML SYR ONE (10:47)
[2024-09-11] MEDS: niCARdipine HCL INJ 2.5 MG/ML 10 ML AMP ONE (10:48)
[2024-09-11] MEDS: NITROGLYCERIN/D5W 100MCG/ML 20ML SYR ONE (10:48)
[2024-09-11 11:15] LABS: iSTAT Arterial Blood Gas HCO3 35 meg/L (19-24); iSTAT Arterial Blood Gas pCO2 58 mmHg (35-46); iSTAT Arterial Blood Gas pH 7.39 (7.35-7.45); iSTAT Arterial Blood Gas pO2 60 mmHg (80-95); iSTAT Carbon Dioxide 37 mmol/L (24-31); iSTAT Hematocrit 37 % (37-47); iSTAT Hemoglobin 12.6 g/dl (12.0-16.0); iSTAT Potassium 4.2 mmol/L (3.3-5.0); iSTAT Sodium 137 mmol/L (135-144)
[2024-09-11] MEDS: fentaNYL citrate PF 100 MCG/2 ML VIAL ONE (12:00)
[2024-09-11] MEDS: HEPARIN (PORCINE) 1000 UNIT/ML 10 ML (CATH LAB USE ONLY) ONE (12:01)
[2024-09-11] MEDS: MIDAZOLAM HCL 1 MG/ML 2ML VIAL ONE ×2 (12:01→13:07)
[2024-09-11] MEDS: OPTIRAY 350 ONE (12:02)
[2024-09-11] MEDS: CLOPIDOGREL BISULFATE 300 MG TAB ONE (12:03)
--- NOTE | 2024-09-11 12:43 | Post Anesthesia Assessment ---
Date of Service September 11, 2024 Post Sedation Assessment Vital Signs Temp Pulse Pulse Pulse Resp BP BP 09/11/24 12:30 71 16 154/69 H 09/11/24 12:15 73 16 164/65 H 09/11/24 08:47 69 70 14 147/65 H 09/11/24 08:00 09/11/24 07:47 98.4 F 68 18 178/98 H 09/11/24 06:00 55 L 09/11/24 02:30 97.7 F 60 18 127/71 09/10/24 23:23 71 09/10/24 22:40 97.7 F 69 18 140/70 09/10/24 21:00 09/10/24 19:21 98.6 F 72 18 139/77 09/10/24 13:10 74 Pulse Ox O2 Del Method O2 Flow Rate 09/11/24 12:30 96 Nasal Cannula 3 09/11/24 12:15 96 Nasal Cannula 3 09/11/24 08:47 96 Room Air 09/11/24 08:00 Nasal Cannula 2 09/11/24 07:47 98 Nasal Cannula 2.0 09/11/24 06:00 09/11/24 02:30 96 Nasal Cannula 09/10/24 23:23 09/10/24 22:40 94 Nasal Cannula 09/10/24 21:00 Nasal Cannula 2 09/10/24 19:21 94 Nasal Cannula 09/10/24 13:10 Recovery Score Activity: Moves 4 extremities Respiration: Deep Breath/Cough Circulation: +/-20% PreAnes Value Consciousness: Fully Awake Oxygen Saturation: > 92% On Room Air Post Anesthesia Score: 10 Discharge Sedation Level of Care: Fast Track Phase II Post Sedation Plan On clinical assessment, the patient appears to have tolerated the sedation without complications. Patient is recovering as anticipated. Patient will continue to be monitored by nursing and may be discharged when sedation discharge criteria are met per below protocol. Upon Completions of procedure up to 15 minutes continue every 5 minute vital signs and the P.A.R. score; then discharge to a Phase I or Fast Track to Phase II per the following guidelines: * Discharge Patient to appropriate Phase II area if PAR is 8 or greater or return to pre- procedure baseline. The post - procedure orders will be as directed. * If PAR score is less than 8 or not return to pre-procedure baseline then patient will follow Phase I monitoring till PAR is reached for Phase II. The Phase I may be done in procedure room or may call to secure a Phase I area. * If naloxone or flumazenil are used for reversal, hold in Phase I for jaycee nued monitoring from when last reversal dose was given for a minimum of 60 minutes or longer pending the nurse and/or physician discretion of patient condition before discharge to Phase II. Please call the Sedation Physician to re-evaluate and complete post-note for discharge to Phase II area. Do NOT discharge from procedure sedation or Phase 1 until post- sedation evaluation note is complete by procedure /sedation MD Sedation Discharge Instructions to be given to the patient at discharge to home.
--- NOTE | 2024-09-11 17:02 | Cardiac Catheterization ---
[facility] Data: Aba Therapist Cardiac Status Clinical evaluation leading to the procedure CAD Presenation: Stable angina Diagnostic Physicians Name: Chapin Dailey MD Closure Device Recommendations: PCI without planned CABG Cardiac Cath Procedure Full Procedure Date September 11, 2024 Pre-Procedure Diagnosis Pre-Procedure Diagnosis: Angina and Valvular Disease AUC Score AUC Score: 7 Post-Procedure Diagnosis Post-Procedure Diagnosis: Severe CAD and Successful PCI Procedure(s) Performed Procedure(s) Performed: Coronary Angiography, Left Heart Cath, Right Heart Cath, Drug Eluting Stent, Ultrasound Guided Vascular Access, Fractional Flow [place] and Procedure (Intravascular lithotripsy) Recruiter Account Manager Chapin Dailey MD [employer] Department Head(s) An Estimated Blood Loss Estimated Blood Loss: 15 Medication(s) Medication(s): Clopidogrel, Fentanyl, Heparin, Lidocaine 1%, Nicardipine, Nitroglycerin and Versed Summary of Findings Indication: Moderate to severe aortic stenosis, acute heart failure. History of coronary disease post prior LAD PCI. Access: 6 Fr slender right radial artery Catheters: [place] Findings: LM -calcified ostium, normal caliber, no significant disease LAD -medium caliber 30% proximal disease. Diffuse in-stent restenosis up to 60 to 70% right after takeoff of D1. Distal vessel without significant disease and wraps around apex. Medium D1 without disease. Circumflex -large caliber vessel gives off a large OM1 without significant disease. Small distal AV groove circumflex without disease. RCA -dominant, medium caliber, 20% ostial, mid segment tortuous. Small RPDA with luminal irregularities. Right heart cath RA 2 RV 58/6 PA 54/16 (30) PAWP 11 LVEDP 15 PaSat 61% AoSat 89% Bernardo CO/CI 8.2/4.3 Thermo CO/CI 5.2/2.8 --IFR/PCI of LAD-- Antithrombotic therapy: Heparin, clopidogrel Procedure: Left main cannulated with EBU 3.5 guide Pre-procedure flow ELLY 3 Quinones Omniwire placed across mid LAD stent into distal vessel IFR 0.85. Pullback revealed largest pressure difference across stenosis just after D1 Pressure wire removed BMW wire passed across mid LAD in-stent disease into distal vessel Mid LAD in-stent restenosis dilated with 3.0 NC balloon. Residual severe stenosis in proximal aspect of stent Further dilation attempted with with 2.5 cutting balloon but vessel did not fully expand Proximal aspect of middle a stent further treated with 2.5 intravascular lithotripsy (shockwave) balloon (60 pulses) Dilated lesion stented with 2.75 x 18 mm Xience drug-eluting stent Stent post-dilated with 3.0 noncompliant balloon IC vasodilators administered for spasm Post procedure ELLY 3 flow, stent well expanded with minimal residual stenosis and no apparent cardiac complications. Arterial Closure: TR band Summary: 1. Severe single vessel coronary artery disease -60 to 70% mid LAD in-stent restenosis (hemodynamically significant by IFR 0.85) 2. Normal left and right-sided filling pressures. 3. Moderate pulmonary hypertension 4. Preserved cardiac output 5. Moderate to severe aortic stenosis (pullback gradient 4045 mmHg). 6.. Successful PCI of mid LAD in-stent restenosis with intravascular lithotripsy and new overlapping MORENA (2.75 x 18 mm Xience; postdilated with 3.0 NC). Recommendations: To PCU for continued monitoring Loaded with clopidogrel 600 mg in Aba Therapist Continue dual-antiplatelet therapy for at least 1 year Transition to maintenance diuretics Continued surveillance of aortic valve. If symptoms improved can defer referral for TAVR at this time Consult cardiac Rehab Hemodynamics Rest Ao:: 164/75/122 Final Ao: 120/60/84 LV: 216/50pullback gradient 40-45 mmHg Recommendations Recommendations: PCI without planned CABG Specimens Specimens: None Radiation Exposure (mGy) 2748 Contrast (mls) 120 Anesthesia Moderate 2931-3420 Procedural Complication(s) None Disposition PCU I attest to the content of the Intraoperative Record and any orders documented therein. Any exceptions are noted below. [employer] Card Cath Procedure Codes Cardiac Catheterization Procedure 1: Cardiovascular Cath Procedures: 17478 Coronaries & LHC (+/-LV) & RHC Procedure 2: Cardiovascular Cath Procedures: 12128 (Doppler) Pressure Wire Therapeutic Services & Ancillary Procedure 1: Cardiovascular Tx and Anc Procedures: 81875 Ultrasonic Guidance Vascular Access Moderate Sedation Procedure 1: Sedation/Anesthesia: 25893 Mod Sedation by the same physician;Init15 Min Child Age 5 & Up Procedure 2: Sedation/Anesthesia: 26646 Mod Sedation by the same physician; Ea Addition al15 Minutes Stenting Procedure 1: Cardiovascular Stent Procedures: 70612 Perc transcatheter placement of intracoronary stent(s), with ang (+ intravascular lithotripsy 33160) PG Care Time/CCT Total # of Minutes Spent Total Time Spent with Patient: Total time spent is greater than 50% in coordination of care (as documented) at patient's floor/unit and/or counseling patient:
--- NOTE | 2024-09-11 17:30 | Cardiology Progress Note ---
Date of Service September 11, 2024 Assessment & Plan (1) (HFpEF) heart failure with preserved ejection fraction: Plan: 2. CADpost PCI with MORENA to mid LAD ISR 09/11/2024 3. Severe aortic stenosis 4. Pulmonary hypertension 5. Type 2 diabetes 6. Hypertension Underwent successful PCI to mid LAD in-stent restenosis today. Right heart catheterization showed normal filling pressures with mild to moderate pulmonary hypertension. Aortic valve pullback gradient more moderate to severe. Hopeful that with PCI to LAD and improved heart failure management her symptoms may be improved and can potentially hold off on TAVR. DAPT with aspirin, clopidogrel Restart maintenance diuretic tomorrow, Lasix 40 mg or standing torsemide 20 Continue current Toprol-XL, losartan Repeat echo to assess LV size and function tomorrow. If stable we will hold off on TAVR referral Previously statin intolerant If stable overnight okay with discharge tomorrow. Follow-up with me in 2 weeks. Discussed cardiac rehab as an outpatient. Admission and Anticipated Discharge Date Admission Date: September 05, 2024 Subjective Underwent left and right heart catheterization. Found to have severe in-stent restenosis of LAD treated with single MORENA. Tolerated procedure well. Review of Systems Review of Systems: All systems reviewed & are unremarkable except as noted in HPI & below Physical Exam Physical Exam: General: Comfortable HEENT: Sclerae anicteric Lungs: Clear to auscultation bilaterally Cardiac: Regular rate and rhythm, 3 out of 6 systolic ejection murmur Vascular: 2+ radial, Abdomen: Soft, nontender Extremities: Well perfused, trace edema Neuro: Nonfocal Psych: Alert orient x3, normal affect and mood Results & Data Vital Signs (Past 12 Hours) Vital Signs Temp Pulse Pulse Pulse Resp BP BP 09/11/24 13:10 70 09/11/24 12:50 66 09/11/24 12:30 71 16 154/69 H 09/11/24 12:15 73 16 164/65 H 09/11/24 08:47 69 70 14 147/65 H 09/11/24 08:00 09/11/24 07:47 98.4 F 68 18 178/98 H 09/11/24 06:00 55 L Pulse Ox O2 Del Method O2 Flow Rate 09/11/24 13:10 09/11/24 12:50 09/11/24 12:30 96 Nasal Cannula 3 09/11/24 12:15 96 Nasal Cannula 3 09/11/24 08:47 96 Room Air 09/11/24 08:00 Nasal Cannula 2 09/11/24 07:47 98 Nasal Cannula 2.0 09/11/24 06:00 PG Care Time/CCT Total # of Minutes Spent Total Time Spent with Patient: Total time spent is greater than 50% in coordination of care (as documented) at patient's floor/unit and/or counseling patient: Coding Level of Care Code 59648 SUB INP/OBS CARE 3/50MIN Diagnoses (HFpEF) heart failure with preserved ejection fraction I50.30
[2024-09-12 06:57] LABS: Magnesium 2.2 mg/dl (1.7-2.4)
[2024-09-12 07:12] LABS: iSTAT Arterial Blood Gas HCO3 36 meg/L (19-24); iSTAT Arterial Blood Gas pCO2 59 mmHg (35-46); iSTAT Arterial Blood Gas pO2 33 mmHg (80-95); iSTAT Carbon Dioxide 38 mmol/L (24-31); iSTAT Hematocrit 37 % (37-47); iSTAT Hemoglobin 12.6 g/dl (12.0-16.0); iSTAT Potassium 4.2 mmol/L (3.3-5.0); iSTAT Sodium 137 mmol/L (135-144)
[2024-09-12 08:31] LABS: BUN Creatinine Ratio 27.6 (10-20); Calcium 10.2 mg/dl (8.6-10.3); Creatinine Clr Calc Pharmacy 41.9 ml/min; Potassium 4.6 mmol/L (3.5-5.1)
[2024-09-12] MEDS: CLOPIDOGREL BISULFATE 75 MG TAB PO SCH (09:15)
[2024-09-12] MEDS: FUROSEMIDE 40 MG TAB PO SCH (09:16)
--- NOTE | 2024-09-12 10:52 | XCELERA ---
[id number]
[2024-09-12 11:35] VITALS: TEMP 98.1
--- NOTE | 2024-09-12 12:20 | Cardiology Progress Note ---
Date of Service September 12, 2024 Assessment & Plan (1) (HFpEF) heart failure with preserved ejection fraction: Plan: 2. CADpost PCI with MORENA to mid LAD ISR 09/11/2024 3. Severe aortic stenosis 4. Pulmonary hypertension 5. Type 2 diabetes 6. Hypertension Stable post PCI to LAD yesterday. No apparent access site site complications. No significant congestion on exam Electrically stable on telemetry. Reviewed repeat echocardiogram today. LV size and function unchanged. Aortic stenosis appears severe. From a cardiac standpoint okay with discharge today. DAPT with aspirin, clopidogrel Home on Lasix 40 mg daily. Discussed daily weights, salt restriction. Continue current Toprol-XL, losartan Previously statin intolerant Follow-up with me in 1-2 weeks. If feeling better potentially can delay TAVR referral. If still symptomatic interested in TAVR evaluation at [facility]. Admission and Anticipated Discharge Date Admission Date: September 05, 2024 Subjective Feeling well this morning. Denies significant shortness of breath, chest pain. Telemetry reviewedno evidence Review of Systems Review of Systems: All systems reviewed & are unremarkable except as noted in HPI & below Physical Exam Physical Exam: General: Comfortable HEENT: Sclerae anicteric Lungs: Clear to auscultation bilaterally Cardiac: Regular rate and rhythm, 3 out of 6 systolic ejection murmur Vascular: 2+ radial, ecchymosis at access site and right brachial vein access site. No hematoma. Abdomen: Soft, nontender Extremities: Well perfused, chronic venous stasis changes. No significant edema. Neuro: Nonfocal Psych: Alert orient x3, normal affect and mood Results & Data Vital Signs (Past 12 Hours) Vital Signs Temp Pulse Pulse Resp BP Pulse Ox O2 Del Method 09/12/24 11:32 98.1 F 73 16 132/71 96 Nasal Cannula 09/12/24 08:00 Nasal Cannula 09/12/24 07:27 97.5 F L 63 18 98/55 L 94 Room Air 09/12/24 02:36 98.6 F 62 18 135/75 97 Nasal Cannula 09/12/24 01:12 60 18 97 09/12/24 00:51 64 18 97 O2 Flow Rate 09/12/24 11:32 09/12/24 08:00 2 09/12/24 07:27 09/12/24 02:36 09/12/24 01:12 09/12/24 00:51 PG Care Time/CCT Total # of Minutes Spent Total Time Spent with Patient: Total time spent is greater than 50% in coordination of care (as documented) at patient's floor/unit and/or counseling patient: Coding Level of Care Code 33218 SUB INP/OBS CARE 350MIN Diagnoses (HFpEF) heart failure with preserved ejection fraction I50.30
--- NOTE | 2024-09-12 12:53 | XRay Report ---
XR chest 2V PA/lateral CLINICAL HISTORY: persistent hypoxia, recent CHF COMPARISON STUDY: Chest radiograph September 05, 2024. FINDINGS: Bilateral shoulder arthroplasties are incidentally noted. There is no pneumothorax or pleur al effusion. Pulmonary edema has resolved since prior exam. The heart is mildly enlarged. A hiatal he rnia is again noted. IMPRESSION: No acute cardiopulmonary findings. Resolution of pulmonary edema. ACT 112: Negative or not required by law. Electronically signed by: Eulogio Mooney M.D. 09/12/2024 12:51 PM
--- NOTE | 2024-09-12 15:29 | Discharge Summary ---
Discharge Summary Date of Service September 12, 2024 Principal Dx & Hospital Course #1 = Principal Diagnosis (1) Acute on chronic heart failure with preserved ejection fraction: 84 y/o with presumed severe admitted with acute HFpEF. was not symptomatic of heart failure previous to the last few weeks when she developed progressive edema and then dyspnea Had been previously scheduled for coronary angiogram 09/[address] Dailey to better evaluate , upcoming potential TAVR at [facility] Last TTE 05/2024 reviewed: normal LV, apical hypokinesis, mod conc LVH, severe with SIVA 0.5, mod MR and TR Coronary angiogram done today as planned - discussed with Dr. Dailey - appeared euvolemic based on cath, appears more moderate so not needing TAVR right now, PCI to 70% LAD lesion with stent placed inside of preexisting stent Diuresed this admission with lasix 40 mg IV daily, tolerated well. 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 Dailey (3) CAD (coronary artery disease): CAD - History of anterior STEMI 01/2020, PCI with single MORENA to mid LAD, mild to moderate residual proximal LAD disease Coronary angiogram 09/11 with PCI to 70% LAD lesion site of previous stent - continue ASA and plavix - intolerant of statin LDL chol: 111, Aug 2024 - follow up with Dr. Dailey (4) Normocytic anemia: iron deficient and B12 deficient in 2021 - iron stores low normal, B12 normal (5) Type 2 diabetes mellitus: T2DM - Last a1c December 2023: 6.5. ordered A1c for morning, pending - stop Januvia and replace with Jardiance 10 mg daily - diabetic diet, premeal correctional insulin - blood glucose remains well-controlled - reviewed 09/11 Plan Mildly elevated INR of 1.2, minimally elevated bilirubin 1.1 - liver congestion from HF, TR -CMP and INR 09/11 - both have normalized Pulmonary hypertension, history of cryptogenic organizing pneumonia Hypertension - meds as above Dyslipidemia - intolerant of statin. FELICE - continue CPAP - CO2 up mildly because not using CPAP this week, contraction alkalosis, discussed DVT ppx - enoxaparin lives with her , can stay on one level with 1 LESLYE. OT evaluation reviewedno needs, PT evaluation reviewed recommended home with home health PT I updated one of her daughters who is at bedside 09/10, 09/11 Admission HPI Per Admitting Provider Nan Rae is a 84 y/o F with a past medical history of CAD s/p MORENA and PCI 2020 chronic diastolic heart failure EF 50-55%, dyslipidemia - intolerant to statins, HTN, FELICE, severe asymptomatic aortic stenosis arriving in the ED due to chest pain, SOB, and edema. 09/11 cardiac catheterization scheduled with Dr. Dailey. Patient endorses 5 weeks of chest pressure, cough and SOB, and bilateral lower extremity edema. Patient explains that the chest pressure has not been painful or worsening but her SOB/cough and bilateral lower extremity has been progressively worsening, and she noticed that symptoms began rapidly worsening since the past week and a half. Patient notes that she has been consistently gaining 1-2 pounds per day for the past few weeks. The patient also endorses nausea but denies vomiting and abdominal pain. The patient denies chest pains, palpitations, headache incontinence or changes in bowel habits. Patient endorses that before 5 weeks ago she was ambulating with a cane or walker, but for the past month or so has been using a wheel chair to move around because of her increased leg pain and SOB. Patient endorses being on furosemide in the past, but took herself off of the medication and after consulting with cardiology was not placed back on medication. Discharge Plan Discharge Items Patient Disposition: Home - Home Health Services Reason For Visit: ACUTE EXACERBATION CHF Discharge Diagnosis: 1. Acute on chronic congestive heart failure 2. Severe aortic stenosis 3. Coronary artery disease with new stent placed by Dr Dailey 4. Need for home Oxygen - 2 liters with activity only 5. Sleep apnea on CPAP Activity: Resume your previous activity Activity Comment: as tolerated Non-emergency contact: Primary Care Provider and Manager Camp Call non-emergency contact if: you have any medication questions and your symptoms worsen Follow-up/Referrals: Chapin Dailey MD [Physician] - (Office is going to reach out about scheduling appointment.) Karissa Mary [Primary Care Provider] - 09/19/24 8:25 am (Follow up on September 19 at 8:25) Ankita Ayala PA-C [Physician Apprenticeship Consultant] - 09/18/24 2:00 pm (Congestive Heart Failure Program Appointment Information Early follow up is essential to managing your heart failure. An appointment has been scheduled for you with the [facility] Heart Failure Program within 7 days of discharge. Anticipate this visit to be 30-60 minutes long. Please expect a card cutter phone call from one of our nurses approximately 48 hours from discharge. They will also be placing an order for lab work to be completed 1-2 days prior to your heart failure follow up appointment. Please be sure to have this done so we can go over the results when you come in. Office Location The cardiology office building is located in front of the hospital at [address] Bring the following with you to your follow-up doctor appointments: Please bring your daily weight log any discharge paperwork all of your medication bottles with you to this visit. ) Diet: Carb Consistent or DM2 and Low Sodium (2gm) Fluids: 1800ml (7 cups) Addtl Attending Provider Instructions: You were treated for heart failure which results in fluid build-up in the lungs (and other locations) Dr. Dailey did coronary angiogram 09/11/24 He placed a new stent in your LAD artery -hopefully with the new stent and medications for heart failure your symptoms will improve -Dr Dailey and his team will continue to monitor your aortic stenosis (your echocardiogram today was unchanged from your prior echocardiogram earlier this year) -you need aspirin and plavix (clopidogrel) to keep the stent open; new prescription sent to your pharmacy for the clopidogrel -diuretic (furosemide) was started; take 40mg every morning; prescription sent to pharmacy for you -stopped Januvia and replaced with Jardiance which is good for diabetes and much better for heart failure; new prescription for the Jardiance sent to pharmacy for you -continue your telmisartan as previous -continue your metoprolol succinate as previous but LOWER the dose by half to 25mg at bedtime (you previously were on 50mg at bedtime) -continue an acid digital associate media director as previous HOWEVER your omeprazole has been changed to pantoprazole 40mg daily (less interaction of pantoprazole with your heart medicines in comparison to omeprazole); new prescription for the pantoprazole sent to pharmacy for you Finally, you will need to use home oxygen - 2 liters with activity/ambulation. You do not need to use it at rest, with eating meals, etc. I will send a message to Deangelo Garcia - pulmonology clinic physician licensed occupational therapy assistant - to see if he can order you a home oximetry study to determine if you need to use oxygen with your CPAP. Diet/fluids - * limit salt intake to no more than 2000mg in a 24-hour period * limit total fluid intake to no more than 1800ml in a 24-hour period; this includes ALL fluids taken in (coffee, tea, water, juice, milk, etc) Follow up with Dr. Dailey as well as the CHF clinic ([facility]) It was a pleasure taking care of you in the hospital! Jenna Posey MD & Nicholas Pemberton MD Addtl Journalists And Other Writers Provider Instructions: Call 911 and go to the Emergency Room if: * You have tightness or pain in your chest that does not go away with rest or Nitroglycerin * You are very short of breath even with rest Call your doctor if any of the following symptoms or problems start or get worse: * Shortness of breath or difficulty breathing * Wake up at night short of breath * Chest pain * Cough * Swelling of your hands, fee, or legs * More fatigued or tired with your normal activity * Palpitations - sudden fast heart beats WEIGHT * Weigh yourself every morning after using the bathroom. * Use the same scale. * Wear the same amount of clothing. * Write your weight down on your chart. * Call your doctor if you gain more than 2-3 pounds in 1-2 days. This is typically one of the first signs of fluid/water retention from heart problems. Don't wait - call right away for guidance. MEDICATIONS * Use this discharge instruction sheet for instructions. * Take your medications at the time your doctor ordered. * Do not skip a dose of your medicines. * If you miss a dose of medicine, take as soon as possible, but DO NOT DOUBLE A DOSE. * Read your medicine information when you get home. * Know all of the side effects of your medicine. * Call your doctor's office if you have any side effects. * Be sure all of your doctors know what medicine and herbs you take (including cold, flu, and herbal medicine). * Pain Medicine: If you do not get relief from your pain, please call your doctor for help. Take the following with you to your follow-up doctor appointments: * Weight Chart * Medication List * List of questions Do not drink excessive alcohol, beer or wine. Pending Studies at Discharge: No Stand-Alone Forms: [facility], Smoking Cessation Medications and DC Order Prescriptions: New (DME) Oxygen Home Liters Per Minute See Rx Instructions .ROUTE .MEDSUPPLY Qty: 1 0RF Rx Instructions: 2 liters NC O2 with ambulation/activity only. furosemide 40 mg Tablet 40 mg PO QAM Qty: 30 5RF clopidogrel 75 mg Tablet 75 mg PO QAM Qty: 30 5RF pantoprazole 40 mg Tablet,Delayed Release (Dr/Ec) 40 mg PO QAM Qty: 30 5RF Jardiance 10 mg Tablet 10 mg PO DAILY Qty: 30 5RF Rx Instructions: for diabetes & for congestive heart failure ropinirole 0.25 mg Tablet 0.5 mg PO HS Qty: 0 0RF Continued (DME) ASV Machine Misc See Rx Instructions .Route Qty: 1 0RF Rx Instructions: Mask fitting-LON99 ferrous sulfate 325 mg (65 mg iron) tablet,delayed release (DR/EC) 325 mg PO DAILY gabapentin 100 mg capsule 300 mg PO QPM mecobalamin (vitamin B12) 1,000 mcg tablet,chewable 1,000 mcg PO DAILY nitroglycerin [Nitrostat] 0.4 mg tablet, sublingual 0.4 mg sublingual DIRECTED PRN (Reason: Chest Pain) Qty: 60 3RF Rx Instructions: Place one tablet under the tongue every 5 minutes for up to 3 doses over 15 minutes if needed for chest pain. If unrelieved or worsened 3-5 minutes after 1 dose, call telmisartan 20 mg tablet 20 mg PO QAM cholecalciferol (vitamin D3) 50 mcg (2,000 unit) capsule 2,000 units PO QAM aspirin 81 mg Tablet,Delayed Release (Dr/Ec) 81 mg PO QAM Qty: 30 0RF allopurinol 100 mg tablet 200 mg PO QAM oxycodone-acetaminophen 5-325 mg tablet 1 tab PO DIRECTED PRN (Reason: Pain) Probiotic 5 billion cell Capsule, Sprinkle 1 cap PO DAILY Changed metoprolol succinate 50 mg tablet extended release 24 hr 25 mg PO HS Qty: 90 3RF Discontinued Januvia 100 mg tablet 100 mg PO QAM omeprazole 20 mg capsule,delayed release(DR/EC) 20 mg PO QAM Discharge Orders: Discharge Order (Routine); Ordered 09/12/24 Ordered By: Nicholas Santillan/Other Patient Handouts: Furosemide Oral Tablet, Clopidogrel Oral Tablet, Empagliflozin Oral Tablet, What Is Heart Failure, Managing Type 2 Diabetes, Aortic Stenosis Admission Data Admit Date/Time: 09/05/24 19:16 Attending Provider: Nciholas Pemberton Admit Provider: Afshin Perry Primary Care Provider: Karissa Mary Other Providers: iNcholas Lerma; Chapin Polanco; Ankita Ayala Hospital Stay Data Consultations 09/05/24 18:03 ED Decision to Admit Stat 09/05/24 20:44 Consult Cardiology Routine 09/11/24 13:08 [facility] CHF Program Referral Routine Procedures Performed Operation Date: 09/11/24 09:30 Actual Procedures p Cineradiography w/Routine Exam - Chapin Dailey MD p Cath, Right and Left Heart - Chapin Dailey MD p Drug Eluting Stent SGl Vessel - Chapin Dailey MD Diagnostic Imagining Performed 09/10/24 07:04 CL Cath Imgs for PACS use only Routine 09/11/24 10:29 CL Cath Imgs for PACS use only Routine Pending Results Patient Have Any Pending Studies at Discharge: No Discharge Instructions Given to Patient (Per Discharging Provider) You were treated for heart failure which results in fluid build-up in the lungs (and other locations) Dr. Dailey did coronary angiogram 09/11/24 He placed a new stent in your LAD artery -hopefully with the new stent and medications for heart failure your symptoms will improve -Dr Dailey and his team will continue to monitor your aortic stenosis (your echocardiogram today was unchanged from your prior echocardiogram earlier this year) -you need aspirin and plavix (clopidogrel) to keep the stent open; new prescription sent to your pharmacy for the clopidogrel -diuretic (furosemide) was started; take 40mg every morning; prescription sent to pharmacy for you -stopped Januvia and replaced with Jardiance which is good for diabetes and much better for heart failure; new prescription for the Jardiance sent to pharmacy for you -continue your telmisartan as previous -continue your metoprolol succinate as previous but LOWER the dose by half to 25mg at bedtime (you previously were on 50mg at bedtime) -continue an acid digital associate media director as previous HOWEVER your omeprazole has been changed to pantoprazole 40mg daily (less interaction of pantoprazole with your heart medicines in comparison to omeprazole); new prescription for the pantoprazole sent to pharmacy for you Finally, you will need to use home oxygen - 2 liters with activity/ambulation. You do not need to use it at rest, with eating meals, etc. I will send a message to Deangelo Garcia - pulmonology clinic physician licensed occupational therapy assistant - to see if he can order you a home oximetry study to determine if you need to use oxygen with your CPAP. Diet/fluids - * limit salt intake to no more than 2000mg in a 24-hour period * limit total fluid intake to no more than 1800ml in a 24-hour period; this includes ALL fluids taken in (coffee, tea, water, juice, milk, etc) Follow up with Dr. Dailey as well as the CHF clinic ([facility]) It was a pleasure taking care of you in the hospital! Jenna Posey MD & Nicholas Pemberton MD Coding Diagnoses Acute on chronic heart failure with preserved ejection fraction I50.33 Aortic stenosis, severe I35.0 CAD (coronary artery disease) I25.10 Normocytic anemia D64.9 Type 2 diabetes mellitus E11.9
[2024-09-12 15:38] VITALS: BP 147/65; PULSE 69; RESP 16; O2SAT 96
== END 2024-09-12 16:18 | disposition home health service (06) | DRG 323 ==
LOC: ED 15:29 → SUATTDRO 19:16 → 2E 19:16